=== PATIENT | male | born 1955 | race Caucasian/White ===

== ENCOUNTER 2020-03-18 19:23 | Emergency (ER) | payer MEDICARE, SELFPAY ==
[2020-03-18 19:36] VITALS: BP 187/89; PULSE 84; RESP 18; TEMP 36.2; O2SAT 98
--- NOTE | 2020-03-18 20:47 | ED.ABDPAIN ---
HPI - Abdominal Pain General Chief Complaint: Urogenital-Male Stated Complaint: urinary catheter not draining Time Seen by Provider: 03/18/20 20:39 History of Present Illness HPI narrative: Patient presents to the ER with pain in his penis from the catheter. He had prostate surgery 2 days ago, with Dr. Roldan. He did not feel like his bladder was unable to empty, just having severe pain in the penis, which is greatly relieved by the time I saw him. The urine in the Park bag and tubing is bloody, not clotted, but blood-tinged. He denies fever chills and sweats. He says he feels hot. He is currently diaphoretic. He said he took his diabetic medicine, before he came in. He had the procedure done in [place], at [facility]. MD elicited complaint: abdominal pain Pertinent past history: other (Prostatic surgery 2 days ago) Onset (ago): hour(s) Pain Consistency: constant Location: other (Penile) Severity: severe Related Data Home Medications Medication Instructions Recorded Confirmed aspirin 81 mg tablet,delayed 81 mg PO DAILY 12/01/19 release finasteride 5 mg tablet 5 mg PO DAILY 12/01/19 insulin human U-100 NPH-regulr See Rx Instructions SUB-Q QAM 12/01/19 70-30 mix 100 unit/mL subcutaneous susp lycopene 10 mg capsule 10 mg PO DAILY 12/01/19 saw palmetto 160 mg capsule 320 mg PO DAILY cap 12/01/19 Allergies Allergy/AdvReac Type Severity Reaction Status Date / Time codeine Allergy Unknown felt wierd Verified 03/03/20 10:01 lisinopril Allergy Unknown cough Verified 03/03/20 10:01 peanut Allergy Unknown Swelling Verified 03/03/20 10:01 of Lip/Tongue/Throat Sulfa (Sulfonamide Allergy Unknown Skin Verified 03/03/20 10:01 Antibiotics) Reaction Review of Systems Review of Systems: Narrative: CONSTITUTIONAL: Denies fever, chills, or sweats. Feels hot. EYES: Denies visual changes, redness, or discharge. ENT: Denies rhinorrhea, congestion, sore throat, or otalgia. CARDIOVASCULAR: Denies chest pain, palpitations, or edema. RESPIRATORY: Denies cough or dyspnea. GASTROINTESTINAL: Denies abdominal pain, nausea, vomiting, or diarrhea. GENITOURINARY: He has had a Park catheter, and had pain in his penis, and bloody urine. SKIN: Denies rash or itching. MUSCULOSKELETAL: Denies back pain, joint pain, or myalgia. NEUROLOGIC: Denies headache, numbness, or weakness. PSYCHIATRIC: Denies anxiety or depression. [facility] Family History Family History Sibling Diabetes mellitus Hypertension Family history of elevated blood lipids Father Family history of glaucoma, Onset Age: 90 Family history of elevated blood lipids, Onset Age: 90 Family history of cardiovascular disease, Onset Age: 90 Diabetes mellitus Hypertension Family history of dementia Mother Family history of malignant neoplasm of stomach, Onset Age: 78 Family history of dementia Social History Social History Smoking status: Never smoker Alcohol intake: never Exam Narrative: Exam Narrative: GENERAL: Well-appearing, well-nourished, and in no acute distress. He is diaphoretic about the forehead and neck. His Park catheter is in place and has blood-tinged urine. HEAD: Normocephalic, atraumatic. EYES: PERRLA and EOMI. ENT: Nares clear, no rhinorrhea or epistaxis. Mucous membranes moist. NECK: Supple. CHEST: Clear to auscultation. No respiratory distress. HEART: Regular rate and rhythm. No murmur heard. Normal peripheral pulses. ABDOMEN: Soft, nontender, nondistended, normal active bowel sounds. EXTREMITIES: Normal range of motion. No edema. SKIN: Warm, dry, no rash. NEURO: No focal deficits. Alert and oriented x3. PSYCH: Normal mood and affect. Const: General: no acute distress and alert Orientation/consciousness: patient oriented x3 Course Consultations Consultation #1: Call Dr. Roberts for advice. Dr. Liu
--- NOTE | 2020-03-18 20:52 | PC.NURSE ---
Bladder scan done at this time. 48ml in bladder at this time. ERP aware.
[2020-03-18 21:07] LABS: Basophils Percent Auto 0.3 % (0.2-1.2); Eosinophils Absolute Auto 0.1 K/mm3 (0-0.3); Eosinophils Percent Auto 1.3 % (0-4.4); Hematocrit 46.4 % (42.0-52.0); Hemoglobin 16.1 g/dL (14.0-18.0); Immature Granulocyte Absolute 0.02 K/mm3 (0.00-0.031); Immature Granulocyte Percent A 0.2 % (0-0.5); Lymphocytes Absolute Auto 1.07 K/mm3 (0.9-3.2); Lymphocytes Percent Auto 11.2 % (18.3-44.2); Mean Corpuscular HGB Conc 34.7 g/dl (32-36); Mean Corpuscular Hemoglobin 32.7 pg (26-34); Mean Corpuscular Volume 94.1 fl (80-100); Mean Platelet Volume 10.3 fl (7.4-10.4); Monocytes Absolute Auto 0.7 K/mm3 (0.1-0.6); Monocytes Percent Auto 7.6 % (2.6-8.5); Neutrophils Absolute Auto 7.6 K/mm3 (1.3-6.7); Neutrophils Percent Auto 79.4 % (45.5-73.1); Platelet Count Result 141 k/mm3 (150-375); Red Blood Count 4.93 M/mm3 (4.6-6.20); Red Cell Distribution Width 12.5 % (11.5-14.5); White Blood Count 9.6 K/mm3 (4.5-10.0)
[2020-03-18 21:20] LABS: Alanine Aminotransferase 22 U/L (4-50); Albumin Level 3.4 g/dL (3.5-5.1); Alkaline Phosphatase 123 U/L (38-126); Aspartate Amino Transferase 27 U/L (17-59); Bilirubin,Total 0.4 mg/dL (0.2-1.3); Blood Urea Nitrogen 19 mg/dL (9-20); Calcium 8.4 mg/dL (8.4-10.2); Carbon Dioxide 28 mmol/L (22-30); Chloride 100 mmol/L (98-107); Estimated CRCL calculation 63 ml/min; Estimated Glomerular Filt Rate > 60; Glucose 258 mg/dL (75-110); Potassium 4.2 mmol/L (3.4-5.0); Sodium 132 mmol/L (137-145)
[2020-03-18] MEDS: PHENAZOPYRIDINE HCL 100 MG TABLET PO (21:48)
[2020-03-18 22:00] LABS: Glucose Point of Care 232 (65-105)
[2020-03-18 22:13] VITALS: BP 155/70; PULSE 84; RESP 18; O2SAT 98
== END 2020-03-18 22:14 | disposition home or self-care (01) ==
PROVIDERS: Emergency Provider Emergency Medicine; PCP Family Medicine
DX: N32.89 Other specified disorders of bladder (principal); R31.9 Hematuria, unspecified; E11.9 Type 2 diabetes mellitus without complications; Z79.82 Long term (current) use of aspirin; Z79.4 Long term (current) use of insulin
CPT/HCPCS: 36415; 80053; 82948; 85025; 99283; A9270

== ENCOUNTER 2021-12-11 11:48 | Outpatient (CLI) | payer MEDICARE, SELFPAY ==
--- NOTE | ~2021-12-11 | XR_ITS ---
XR shoulder RT min 2V 12/11/2021 12:22 Indication: Right shoulder pain Procedure: 4 views right shoulder Comparison: No prior studies for comparison. Findings: No fracture, subluxation or dislocation. There is mild glenohumeral joint osteoarthritis. T here are median sternotomy wires. There is evidence for chronic granulomatous disease in the lungs. Impression: 1: Mild glenohumeral joint osteoarthritis. Reviewed, dictated and finalized at location A. DRIVER Impression: 1: Mild glenohumeral joint osteoarthritis.
== END 2021-12-11 11:49 ==
PROVIDERS: PCP Family Medicine; Visit Provider Family Medicine
DX: M19.011 Primary osteoarthritis, right shoulder (principal)
CPT/HCPCS: 73030

== ENCOUNTER → 2022-04-17 13:52 | Outpatient (CLI) | payer MEDICARE, SELFPAY ==
--- NOTE | ~2022-04-17 | CT_ITS ---
EXAMINATION: CT soft tissue neck w con DATE: 04/17/2022 14:20 INDICATION: Mass at the base of the and right sternocleidomastoid. TECHNIQUE: Computed tomography (CT) of the neck was performed with 75 mL Omnipaque-300 intravenous co ntrast. Automated exposure control and iterative reconstruction technique were employed. The dose-janneth gth product was 431.14 mGy-cm. COMPARISON: None FINDINGS: There is a predominantly cystic 4.0 x 3.6 x 3.0 cm mass with peripheral enhancing nodular soft tissue component at the mid to inferior right thyroid. There is a smaller predominantly solid 1.2 cm nodule with small peripheral calcification at the superior right thyroid. Submandibular and parotid glands are symmetric. There are scattered normal-sized lymph nodes in the neck, no pathologically enlarged lymphadenopathy. The cervical vasculature is unremarkable. Changes of bilateral intraocular lens rep lacement. Orbits are otherwise normal. Mild mucosal thickening at the right maxillary sinus. Mastoid air cells and middle ear cavities are clear. Small calcified right upper lobe nodule consistent with old granulomatous disease. There are a few normal-sized lymph nodes in the visualized superior medias tinum. Moderate cervical spondylosis. Median sternotomy wires. IMPRESSION: 1. A couple right thyroid nodules including a 4.0 x 3.6 x 2.0 cm predominantly cystic right thyroid m ass and 1.2 cm solid nodule with calcifications. Recommend thyroid ultrasound for risk stratification . Reviewed, dictated and finalized at location A. IMPRESSION: 1. A couple right thyroid nodules including a 4.0 x 3.6 x 2.0 cm predominantly cystic right thyroid mass and 1.2 cm solid nodule with calcifications. Recommen d thyroid ultrasound for risk stratification.
[2022-04-17 14:10] LABS: Estimated Glomerular Filt Rate > 60
== END ==
PROVIDERS: PCP Family Medicine; Visit Provider Family Medicine
DX: R22.1 Localized swelling, mass and lump, neck (principal)
CPT/HCPCS: 70491; Q9967

== ENCOUNTER → 2022-04-27 07:52 | Outpatient (CLI) | payer MEDICARE, SELFPAY ==
--- NOTE | ~2022-04-27 | US_ITS ---
EXAMINATION: US thyroid DATE: 04/27/2022 08:20 INDICATION: Disorder of thyroid, unspecified. TECHNIQUE: Multiple ultrasound images of the thyroid were obtained. COMPARISON: Neck CT 04/17/2022 FINDINGS: The right thyroid lobe measures 7.2 x 3.9 x 4.1 cm. The left thyroid lobe measures 5.8 x 2.2 x 1.4 c m. The thyroid demonstrates diffusely heterogeneous echogenicity. In the left thyroid lobe, there is a 10 mm solid, hypoechoic, wider than tall nodule with ill-defined margin and punctate echogenic foc i (TI-RADS TR5). In the left thyroid lobe, there is a 1.3 cm solid, hypoechoic, wider than tall nodul e with ill-defined margin without echogenic foci (TR4). In the left thyroid lobe, there is a 12 mm so lid, hypoechoic, wider than tall nodule with ill-defined margin without echogenic foci (TR4). In the right thyroid lobe, there is a 4.6 cm mixed cystic and solid, hypoechoic, wider than tall nodule with smooth margin without echogenic foci (TR3). In the right thyroid lobe, there is a 10 mm solid, hypoe choic, wider than tall nodule with ill-defined margin without echogenic foci (TR4). IMPRESSION: 1. Multinodular goiter. Ultrasound-guided fine-needle aspiration of 2 nodules is recommended. Reviewed, dictated and finalized at location A. IMPRESSION: 1. Multinodular goiter. Ultrasound-guided fine-needle aspiration of 2 nodules i s recommended.
== END ==
PROVIDERS: PCP Family Medicine; Visit Provider Family Medicine
DX: E04.2 Nontoxic multinodular goiter (principal)
CPT/HCPCS: 76536

== ENCOUNTER 2022-05-24 08:28 | Outpatient (CLI) | payer MEDICARE, SELFPAY ==
--- NOTE | ~2022-05-24 | US_ITS ---
EXAMINATION: US FNA w image guidance, US FNA additional DATE: 05/24/2022 10:02 INDICATION: Nontoxic multinodular goiter. TECHNIQUE: The procedure and its benefits and risks were discussed with the patient. Risks specifically discusse d included bleeding. The patient verbalized understanding of the risks and agreed to proceed. The nec k was prepped and draped in the usual sterile manner. 1% lidocaine was used for local anesthesia. 6 passes were made with a 25G needle into the lesion in right thyroid lobe under ultrasound guidance. 6 passes were made with a 25-gauge needle into the lesion in left thyroid lobe under ultrasound criss nce. There were no immediate complications. FINDINGS: Grayscale ultrasound images demonstrate needles advanced into a 4.6 cm nodule in right thyroid lobe f or biopsy. Ultrasound images demonstrate needles advanced into a 10 mm nodule in left thyroid lobe. IMPRESSION: 1. Ultrasound-guided fine needle aspiration of a right thyroid nodule. 2. Ultrasound-guided fine-needle aspiration of a left thyroid nodule. Reviewed, dictated and finalized at location A. IMPRESSION: 1. Ultrasound-guided fine needle aspiration of a right thyroid nodule. 2. Ultrasound-guided fine-needle aspiration of a left thyroid nodule.
== END 2022-05-24 08:29 | disposition home or self-care (01) ==
PROVIDERS: PCP Family Medicine; Visit Provider Physician Assistant
DX: E04.2 Nontoxic multinodular goiter (principal)
CPT/HCPCS: 10005; 10006; 88173; 88305

== ENCOUNTER 2022-12-12 10:42 | Outpatient (CLI) | payer MEDICARE, SELFPAY ==
--- NOTE | ~2022-12-12 | XR_ITS ---
Left Shoulder Technique: AP and scapular Y views were obtained. Clinical History: Pain Findings: No fracture or dislocation is seen. Osseous alignment is anatomic. There is minimal degener ative change at the glenohumeral and acromioclavicular joints. Soft tissues are unremarkable. Impression: Minimal degenerative changes, as above. No fracture or dislocation. Reviewed, dictated and finalized at location . ANGER Impression: Minimal degenerative changes, as above. No fracture or dislocation.
--- NOTE | ~2022-12-12 | XR_ITS ---
XR_[id number]_CR 12/12/2022 11:13 Indication: Posterior neck pain Procedure: 4 view cervical spine Comparison: No prior studies for comparison. Findings: There is straightening of cervical lordosis. There are prominent ventral osteophytes at all cervical levels. There is degenerative disc disease with narrowing at C4-5, C5-6 and C6-7. There is mild multilevel uncinate and facet hypertrophy. Lung apices are normal. Impression: 1: Moderate cervical spondylosis. Reviewed, dictated and finalized at location B. UCTION ASSEMBLY OPERATOR Impression: 1: Moderate cervical spondylosis.
== END 2022-12-12 10:43 | disposition home or self-care (01) ==
PROVIDERS: PCP Emergency Medicine; Visit Provider Emergency Medicine
DX: S49.90XA Unspecified injury of shoulder and upper arm, unspecified arm, initial encounter (principal); X58.XXXA Exposure to other specified factors, initial encounter; M47.892 Other spondylosis, cervical region
CPT/HCPCS: 72040; 73030

== ENCOUNTER 2023-04-20 09:51 | Emergency (ER) | payer MEDICARE, SELFPAY ==
[2023-04-20 10:10] VITALS: BP 166/78; PULSE 68; RESP 16; TEMP 36.3; O2SAT 100
--- NOTE | 2023-04-20 10:45 | ED.GENADULT ---
HPI - General Adult General Chief complaint: Urogenital-Male Stated complaint: urinating blood Source: patient and RN notes reviewed History of Present Illness HPI narrative: 68-year-old male presents to the [facility] today complaining of a possible UTI. Patient noticed last night that he started developing bloody urine. Patient states also that he has had increased urinary frequency and states that he does not feel like he is able to empty his bladder fully. Patient does state having some burning with urination as well. Patient denies any abdominal pain, fever, chills. Patient states he has had a history of this in the past and believes he just was treated with antibiotics. Patient is a diabetic and has a history of open-heart surgery. Related Data Home Medications Medication Instructions Recorded Confirmed aspirin 81 mg tablet,delayed 81 mg PO DAILY 12/01/19 04/20/23 release desmopressin 55.3 mcg 55.3 mcg sublingual QHS 06/12/21 04/20/23 disintegrating tablet,sublingual (men) (Nocdurna (men)) insulin NPH-reg human insulin 100 45 unit subcut HS 04/20/23 04/20/23 unit/mL (70-30) subcutaneous syringe insulin NPH-regular human 100 40 unit subcut DIRECTED 04/20/23 04/20/23 unit/mL (70-30) subcutaneous cartridge simvastatin 40 mg tablet 40 mg PO DAILY 04/20/23 04/20/23 Allergies Allergy/AdvReac Type Severity Reaction Status Date / Time codeine Allergy Unknown felt wierd Verified 04/20/23 10:21 lisinopril Allergy Unknown cough Verified 04/20/23 10:21 peanut Allergy Unknown Swelling Verified 04/20/23 10:21 of Lip/Tongue/Throat Sulfa (Sulfonamide Allergy Unknown Skin Verified 04/20/23 10:21 Antibiotics) Reaction Review of Systems Review of Systems: CONSTITUTIONAL: Denies fever, chills, or sweats. EYES: Denies visual changes, redness, or discharge. ENT: Denies otalgia and sore throat CARDIOVASCULAR: Denies chest pain, palpitations, or edema. RESPIRATORY: Denies cough or dyspnea. GASTROINTESTINAL: Denies abdominal pain, nausea, vomiting, or diarrhea. GENITOURINARY: Positive for dysuria and hematuria. SKIN: Denies rash or itching. MUSCULOSKELETAL: Denies back pain, joint pain, or myalgia. NEUROLOGIC: Denies headache, numbness, or weakness. Pertinent positives per HPI. [facility] Past Medical History Medical History (Updated 04/20/23 @ 10:47 by Lydia Banuelos APRN) CAD (coronary artery disease) Diabetic retinopathy associated with controlled type 2 diabetes mellitus Essential (primary) hypertension Mixed hyperlipidemia Multinodular goiter Prostatic hypertrophy Type 2 diabetes mellitus with diabetic neuropathy, unspecified Surgical History Surgical History (Updated 02/20/23 @ 10:21 by Jazmine Carr MD) History of prostate surgery Family History Family History Sibling Diabetes mellitus Hypertension Family history of elevated blood lipids Father Family history of glaucoma, Onset Age: 90 Family history of elevated blood lipids, Onset Age: 90 Family history of cardiovascular disease, Onset Age: 90 Diabetes mellitus Hypertension Family history of dementia Mother Family history of malignant neoplasm of stomach, Onset Age: 78 Family history of dementia Social History Social History (Updated 02/20/23 @ 10:19 by Masha Pichardo MA) Smoking status: Never smoker Alcohol intake: never Lack of Transportation: No Lack of Food: Never True Current Housing: I Have Housing Concerned About Future Housing: Decline to Answer Difficulty Paying Gas/Electric Bills: Decline to Answer Difficulty Paying for Meds: Decline to Answer Currently Unemployed: Decline to Answer Education: Decline to Answer Difficulty w/ Childcare or Family Care: Decline to Answer Gender identity (if verbalized by the patient): Male Comments At the time of my signature, I reviewed and agree with the nu
== END 2023-04-20 11:14 | disposition home or self-care (01) ==
PROVIDERS: Emergency Provider Nurse Practitioner Family; PCP Emergency Medicine
DX: N39.0 Urinary tract infection, site not specified (principal); I25.10 Atherosclerotic heart disease of native coronary artery without angina pectoris; E11.319 Type 2 diabetes mellitus with unspecified diabetic retinopathy without macular edema; E11.42 Type 2 diabetes mellitus with diabetic polyneuropathy; Z79.4 Long term (current) use of insulin; I10 Essential (primary) hypertension; E78.2 Mixed hyperlipidemia; E04.2 Nontoxic multinodular goiter; N40.0 Benign prostatic hyperplasia without lower urinary tract symptoms
CPT/HCPCS: 81003; 87077; 87086; 87186; 99213; G0463

== ENCOUNTER 2023-12-27 21:29 | Emergency (ER) | payer MEDICARE, SELFPAY ==
--- NOTE | ~2023-12-27 | CT_ITS ---
EXAMINATION: CT brain wo con DATE: 12/28/2023 00:38 INDICATION: Head injury with laceration to the chin TECHNIQUE: Computed tomography (CT) of the head was performed without intravenous contrast. Sagittal and coronal reconstructions were performed. The mA was adjusted according to patient size. Iterative reconstruction technique was employed. The dose-length product was 756.00 mGy-cm. COMPARISON: Brain MR dated 11/22/2014 FINDINGS: No fracture of the visualized bones. No acute intracranial hemorrhage, acute infarction or abnormal e xtra axial fluid collection. There is mild scattered white matter hypoattenuation consistent with chr onic small vessel ischemic disease. Ventricles are normal and symmetric. No mass/mass effect. Change s of bilateral intraocular lens replacement. The orbits and mastoid air cells are normal. Nodular muc osal thickening in the right maxillary sinus. Large periapical lucency associated with the posterior most remaining right maxillary molar. IMPRESSION: 1. Mild scattered white matter hypoattenuation consistent with chronic small vessel ischemic disease. No fracture or acute intracranial process. 2. Large periapical lucency at the posterior most right maxillary molar. Consider dental referral. Reviewed, dictated and finalized at location A. IMPRESSION: 1. Mild scattered white matter hypoattenuation consistent with chronic small ve ssel ischemic disease. No fracture or acute intracranial process. 2. Large periapical lucency at the posterior most right maxillary molar. Consid er dental referral.
--- NOTE | ~2023-12-27 | XR_ITS ---
EXAMINATION: XR hand LT min 3V DATE: 12/28/2023 00:44 INDICATION: Left hand laceration. Assess for foreign body. TECHNIQUE: Posteroanterior, oblique and lateral views of the left hand were obtained. COMPARISON: None. FINDINGS: Bone alignment is normal. No fracture. Joint spaces appear relatively preserved. Tiny heterotopic oss icle near the tip of the radial styloid process. Bandaging material about the ulnar side of the hand. No radiopaque foreign bodies. IMPRESSION: 1. No acute osseous abnormality or radiopaque foreign bodies. Reviewed, dictated and finalized at location A.
[2023-12-27 21:43] VITALS: BP 174/81; PULSE 74; RESP 15; TEMP 36.4; O2SAT 100
--- NOTE | 2023-12-27 23:08 | PC.NURSE ---
Report received from JANET Brunson. Assumed care of patient at this time.
--- NOTE | 2023-12-28 00:02 | PC.NURSE ---
Bedside glucose is 181, ERP notified.
[2023-12-28 00:04] LABS: Glucose Point of Care 181 mg/dl (65-105)
--- NOTE | 2023-12-28 00:11 | ED.FALL ---
HPI - Fall General Chief Complaint: Fall Stated Complaint: fall, L hand lac Time Seen by Provider: 12/27/23 23:34 Source: patient Mode of arrival: ambulatory Limitations: no limitations History of Present Illness HPI Narrative: Patient is a 68 y/o male who presents to the ED with c/o lacerations to his left hand and chin. Patient reports [place] when he tripped and fell. He hit his head on the ground and sustained a laceration to his chin. Denied LOC. He also sustained a laceration to his left hand. Denies any other injuries. Denies neck or back pain. Denies numbness/tingling, difficulty moving hand/fingers. Denies dizziness, lightheadedness, vision changes, nausea, vomiting, SEGURA. Tetanus UTD as of 2 years ago. Related Data Home Medications Medication Instructions Recorded Confirmed desmopressin 55.3 mcg 55.3 mcg sublingual QHS 06/12/21 12/26/23 disintegrating tablet,sublingual (men) (Nocdurna (men)) aspirin 81 mg tablet,delayed 81 mg PO .QOD 09/26/23 12/26/23 release Allergies Allergy/AdvReac Type Severity Reaction Status Date / Time codeine Allergy Unknown felt wierd Verified 12/27/23 23:20 lisinopril Allergy Unknown cough Verified 12/27/23 23:20 peanut Allergy Unknown Swelling Verified 12/27/23 23:20 of Lip/Tongue/Throat Sulfa (Sulfonamide Allergy Unknown Skin Verified 12/27/23 23:20 Antibiotics) Reaction Review of Systems Review of Systems: CONSTITUTIONAL: Denies fever, chills, or sweats. ENT: Denies vision changes GASTROINTESTINAL: Denies abdominal pain, nausea, vomiting. SKIN: See HPI MUSCULOSKELETAL: Denies back pain, neck pain NEUROLOGIC: See HPI All systems reviewed & are unremarkable except as noted in HPI and below PMFSH Past Medical History Medical History CAD (coronary artery disease) Diabetic retinopathy associated with controlled type 2 diabetes mellitus Essential (primary) hypertension Mixed hyperlipidemia Multinodular goiter Prostatic hypertrophy Type 2 diabetes mellitus with diabetic neuropathy, unspecified Surgical History Surgical History History of prostate surgery Family History Family History Sibling Diabetes mellitus Hypertension Family history of elevated blood lipids Father Family history of glaucoma, Onset Age: 90 Family history of elevated blood lipids, Onset Age: 90 Family history of cardiovascular disease, Onset Age: 90 Diabetes mellitus Hypertension Family history of dementia Mother Family history of malignant neoplasm of stomach, Onset Age: 78 Family history of dementia Social History Social History Smoking status: Never smoker Alcohol intake: never Lack of Transportation: No Lack of Food: Never True Current Housing: I Have Housing Concerned About Future Housing: Decline to Answer Difficulty Paying Gas/Electric Bills: Decline to Answer Difficulty Paying for Meds: Decline to Answer Currently Unemployed: Decline to Answer Education: Decline to Answer Difficulty w/ Childcare or Family Care: Decline to Answer Gender identity (if verbalized by the patient): Male Exam Narrative: GENERAL: Well appearing, well-nourished, non-toxic, in no acute distress. HEAD: Normocephalic, atraumatic. 1.5cm linear laceration to inferior chin, no active bleeding. EYES: PERRL/EOMI, conjunctiva clear. RESPIRATORY: Airway patent, respirations nonlabored. CARDIOVASCULAR: Regular rate and rhythm. Radial pulses easily palpable. MUSCULOSKELETAL: Moves all extremities. No gross deformities. Approx 5cm curvilinear laceration to L lateral edge of hand, just inferior and lateral to 5th MCP joint. Subcutaneous adipose tissue exposed, no exposed
[2023-12-28 01:29] VITALS: BP 158/77; PULSE 66; RESP 17; TEMP 36.7; O2SAT 99
== END 2023-12-28 02:37 | disposition home or self-care (01) ==
PROVIDERS: Emergency Provider Physician Assistant; PCP Emergency Medicine
DX: S01.81XA Laceration without foreign body of other part of head, initial encounter (principal); S61.412A Laceration without foreign body of left hand, initial encounter; I25.10 Atherosclerotic heart disease of native coronary artery without angina pectoris; I10 Essential (primary) hypertension; E11.319 Type 2 diabetes mellitus with unspecified diabetic retinopathy without macular edema; E11.40 Type 2 diabetes mellitus with diabetic neuropathy, unspecified; E78.2 Mixed hyperlipidemia; N40.0 Benign prostatic hyperplasia without lower urinary tract symptoms; Z79.4 Long term (current) use of insulin; Z79.84 Long term (current) use of oral hypoglycemic drugs; Z79.82 Long term (current) use of aspirin; W01.0XXA Fall on same level from slipping, tripping and stumbling without subsequent striking against object, initial encounter
CPT/HCPCS: 12002; 12011; 70450; 73130; 82948; 99284

== ENCOUNTER 2024-02-28 15:17 | Outpatient (CLI) | payer MEDICARE, SELFPAY ==
[2024-02-28 19:19] LABS: Albumin Level 3.6 g/dL (3.5-5.1); Anion Gap 3 mmol/L (4-12); Blood Urea Nitrogen 24 mg/dL (9-20); Calcium 8.5 mg/dL (8.4-10.2); Carbon Dioxide 30 mmol/L (22-30); Chloride 99 mmol/L (98-107); Estimated Glomerular Filt Rate > 60; Glucose 316 mg/dL (65-110); Phosphorus 3.7 mg/dL (2.5-4.5); Potassium 4.2 mmol/L (3.4-5.0); Sodium 132 mmol/L (137-145)
[2024-02-28 19:33] LABS: Creatinine Urine 52.4 mg/dL
[2024-02-28 20:04] LABS: Total Protein Urine Random 304 mg/dL
== END 2024-02-28 15:18 | disposition home or self-care (01) ==
LOC: ANHGOSHLAB 15:20
PROVIDERS: PCP Emergency Medicine; Visit Provider Internal Medicine Nephrology
DX: E11.29 Type 2 diabetes mellitus with other diabetic kidney complication (principal); R80.9 Proteinuria, unspecified
CPT/HCPCS: 36415; 80069; 82570; 84156

== ENCOUNTER 2024-06-29 17:57 | Emergency (ER) | payer MEDICARE, SELFPAY ==
--- NOTE | ~2024-06-29 | XR_ITS ---
Clinical Indication: Dizziness AP and lateral views of the chest: Comparison: 05/16/2015 Findings: Stable calcified right upper lobe granuloma. Stable calcified right hilar lymph nodes. The lungs are otherwise clear, without evidence of focal consolidation or pleural effusion. Cardiomedias tinal silhouette is stable. Bones and soft tissues are unremarkable. Impression: Clear lungs. Evidence of prior granulomatous disease. Reviewed, dictated and finalized at location . Impression: Clear lungs. Evidence of prior granulomatous disease.
--- NOTE | ~2024-06-29 | CT_ITS ---
Non-contrast Head CT History: Weakness COMPARISON: 12/28/2023 Technique: Axial non-contrast imaging of the brain was performed. Dose reduction technique was used on this scan by utilizing automated exposure control and iterative reconstruction technique. The dose -length product (DLP) was 681.00 mGy-cm. Findings: There is no evidence of intracranial hemorrhage, mass lesion, or acute infarct. Brain par enchyma appears normal. The ventricles and subarachnoid spaces are normal in size. The calvarium ap pears normal. The visualized paranasal sinuses and mastoid air cells are clear. Impression: No significant abnormality seen. Reviewed, dictated and finalized at location . Impression: No significant abnormality seen.
[2024-06-29 18:10] VITALS: BP 198/77; PULSE 81; RESP 18; TEMP 36.4; O2SAT 100
[2024-06-29 18:49] LABS: Glucose Point of Care 315 mg/dl (65-105)
[2024-06-29 23:02] LABS: Glucose Point of Care 146 mg/dl (65-105)
[2024-06-29 23:03] VITALS: BP 158/94; PULSE 51; RESP 18; O2SAT 97
[2024-06-30 00:05] VITALS: PULSE 65
--- NOTE | 2024-06-30 00:08 | ED.DIZZY ---
HPI - Dizziness General Chief Complaint: Dizziness Stated Complaint: dizziness, leg weakness Time Seen by Provider: 06/29/24 23:59 Source: patient Mode of arrival: wheelchair Limitations: no limitations History of Present Illness HPI Narrative: This is a 69-year-old male that presents to the emergency department for generalized weakness. Reports dizziness. He cannot describe this any further. Reports chills. No other localizing symptoms. Denies fevers, chest pain, shortness of breath, abdominal pain, vomiting, cough. Related Data Home Medications Medication Instructions Recorded Confirmed aspirin 81 mg tablet,delayed 81 mg PO .QOD 09/26/23 05/06/24 release desmopressin 0.2 mg tablet mg PO 04/21/24 05/06/24 latanoprost 0.005 % eye drops drp EACH EYE 04/21/24 05/06/24 timolol maleate 0.5 % eye drops drp EACH EYE 04/21/24 05/06/24 insulin glargine 100 unit/mL 50 unit subcut DAILY 05/06/24 05/06/24 subcutaneous solution (Lantus U-100 Insulin) Allergies Allergy/AdvReac Type Severity Reaction Status Date / Time codeine Allergy Unknown felt wierd Verified 06/29/24 17:59 lisinopril Allergy Unknown cough Verified 06/29/24 17:59 peanut Allergy Unknown Swelling Verified 06/29/24 17:59 of Lip/Tongue/Throat Sulfa (Sulfonamide Allergy Unknown Skin Verified 06/29/24 17:59 Antibiotics) Reaction Review of Systems Review of Systems: CONSTITUTIONAL: Denies fever CARDIOVASCULAR: Denies chest pain RESPIRATORY: Denies cough or dyspnea. GASTROINTESTINAL: Denies abdominal pain, nausea, vomiting NEUROLOGIC: Reports generalized weakness. All systems reviewed & are unremarkable except as noted in HPI and below PMFSH Past Medical History Medical History CAD (coronary artery disease) Diabetic retinopathy associated with controlled type 2 diabetes mellitus Essential (primary) hypertension Mixed hyperlipidemia Multinodular goiter Prostatic hypertrophy Type 2 diabetes mellitus with diabetic neuropathy, unspecified Surgical History Surgical History History of prostate surgery Family History Family History Sibling Diabetes mellitus Hypertension Family history of elevated blood lipids Father Family history of glaucoma, Onset Age: 90 Family history of elevated blood lipids, Onset Age: 90 Family history of cardiovascular disease, Onset Age: 90 Diabetes mellitus Hypertension Family history of dementia Mother Family history of malignant neoplasm of stomach, Onset Age: 78 Family history of dementia Social History Social History Smoking status: Never smoker Alcohol intake: never Do You Feel Safe in your Home?: Yes Lack of Transportation: No Lack of Food: Never True Current Housing: I Have Housing Concerned About Future Housing: Decline to Answer Difficulty Paying Gas/Electric Bills: Decline to Answer Difficulty Paying for Meds: Decline to Answer Currently Unemployed: Decline to Answer Education: Decline to Answer Difficulty w/ Childcare or Family Care: Decline to Answer Gender identity (if verbalized by the patient): Male Exam Narrative: GENERAL: Elderly, well-nourished, and in no acute distress. HEAD: Normocephalic, atraumatic. EYES: PERRLA and EOMI. ENT: Nares clear, no rhinorrhea or epistaxis. Mucous membranes moist. Oropharynx without tonsillar hypertrophy exudate or other lesions. Bilateral TMs pearly cisse non-bulging NECK: Supple. No adenopathy or masses. CHEST: Clear to auscultation. No respiratory distress. No wheezes rales or rhonchi HEART: Regular rate and rhythm. No murmur heard. Normal peripheral pulses. ABDOMEN: Soft, nontender, nondistended, normal active bowel sounds. EXTREMITIES: Normal range of motion. No edema. Strength e
--- NOTE | 2024-06-30 00:25 | ECG_ITS ---
Test Date: 2024-06-30 00:25:50 Measurements Intervals [place] Rate: 60 P: 39 [place]: 220 QRS: -4 QRSD: 104 T: 44 QT: 423 QTc: 423 Interpretive Statements SINUS RHYTHM WITH FIRST DEGREE AV BLOCK BASELINE ARTIFACT- I, II, III, AVR, AVL, AVF, V1-V2 BORDERLINE ECG No previous ECG available for comparison Electronically Signed On 06-30-2024 09:22:11 CDT by Dean Castillo D.O.
[2024-06-30 00:28] LABS: Basophils Percent Auto 0.6 % (0.2-1.2); Eosinophils Absolute Auto 0.3 K/mm3 (0-0.3); Eosinophils Percent Auto 3.6 % (0-4.4); Hematocrit 47.6 % (42.0-52.0); Hemoglobin 16.6 g/dL (14.0-18.0); Immature Granulocyte Absolute 0.02 K/mm3 (0.00-0.031); Immature Granulocyte Percent A 0.3 % (0-0.5); Lymphocytes Percent Auto 24.3 % (18.3-44.2); Mean Corpuscular HGB Conc 34.9 g/dl (32-36); Mean Corpuscular Hemoglobin 32.5 pg (26-34); Mean Corpuscular Volume 93.2 fl (80-100); Mean Platelet Volume 9.8 fl (7.4-10.4); Monocytes Absolute Auto 0.6 K/mm3 (0.1-0.6); Monocytes Percent Auto 8.4 % (2.6-8.5); Neutrophils Absolute Auto 4.4 K/mm3 (1.3-6.7); Neutrophils Percent Auto 62.8 % (45.5-73.1); Platelet Count Result 152 k/mm3 (150-375); Red Blood Count 5.11 M/mm3 (4.6-6.20); Red Cell Distribution Width 12.6 % (11.5-14.5)
[2024-06-30 00:38] LABS: INR 0.9
[2024-06-30 00:39] LABS: Alanine Aminotransferase 26 U/L (6-50); Albumin Level 3.9 g/dL (3.5-5.1); Alkaline Phosphatase 121 U/L (38-126); Anion Gap 8 mmol/L (4-12); Aspartate Amino Transferase 32 U/L (17-59); Bilirubin,Total 0.3 mg/dL (0.2-1.3); Blood Urea Nitrogen 20 mg/dL (9-20); Calcium 8.8 mg/dL (8.4-10.2); Carbon Dioxide 28 mmol/L (22-30); Chloride 93 mmol/L (98-107); Estimated CRCL calculation 55 ml/min; Estimated Glomerular Filt Rate > 60; Glucose 104 mg/dL (65-110); Partial Thromboplastin Time 25.9 Seconds (22.3-36.8); Potassium 3.8 mmol/L (3.4-5.0); Sodium 129 mmol/L (137-145)
[2024-06-30] MEDS: SODIUM CHLORIDE 0.9% IV 1,000 ML 999 ML IV CONT (01:11)
[2024-06-30 01:21] LABS: Add Urine Microscopic? YES; Appearance Urine Clear (Clear); Bacteria Urine None Seen /hpf; Bilirubin Urine Negative (Negative); Blood Urine Negative (Negative); Color Urine Yellow (Yellow); Glucose Urine UA 2+ mg/dL (Negative); Ketones Urine Negative (Negative); Leukocyte Esterase Ur Negative LEU/UL (Negative); Nitrate Urine Negative (Negative); Non Pathogenic Casts 0-2; Protein Urine 3+ mg/dL (Negative); RBC Urine 0-2 /hpf (0-2); Specific Grav Ur 1.009 (1.001-1.035); Squamous Epithelial Cell Urine None Seen /hpf (Few); Urobilinogen Urine 0.2 mg/dL (<2.0); WBC Urine 0-5 /hpf (0-3); pH Urine 5.5 (5.0-9.0)
[2024-06-30 01:52] VITALS: BP 141/78; PULSE 62; RESP 23; O2SAT 96
[2024-06-30 03:08] LABS: Influenza A QL RT-PCR Negative (Negative); Influenza B QL RT-PCR Negative (Negative); RSV RNA, RT-PCR Negative (Negative); SARS-CoV-2 RNA PCR Negative (Negative)
== END 2024-06-30 04:45 | disposition home or self-care (01) ==
PROVIDERS: Emergency Provider Physician Assistant; PCP Emergency Medicine
DX: R53.1 Weakness (principal); E87.1 Hypo-osmolality and hyponatremia; Z20.822 Contact with and (suspected) exposure to COVID-19; I25.10 Atherosclerotic heart disease of native coronary artery without angina pectoris; I10 Essential (primary) hypertension; E11.319 Type 2 diabetes mellitus with unspecified diabetic retinopathy without macular edema; E11.40 Type 2 diabetes mellitus with diabetic neuropathy, unspecified; E78.2 Mixed hyperlipidemia; N40.0 Benign prostatic hyperplasia without lower urinary tract symptoms; Z79.4 Long term (current) use of insulin; Z79.82 Long term (current) use of aspirin; I44.0 Atrioventricular block, first degree
CPT/HCPCS: 36415; 70450; 71046; 80053; 81001; 82948; 85025; 85610; 85730; 87637; 93005; 96360; 99284; J7030

== ENCOUNTER 2024-07-20 12:32 | Emergency (ER) | payer MEDICARE, SELFPAY ==
[2024-07-20 12:44] VITALS: BP 181/87; PULSE 66; RESP 20; TEMP 36.6; O2SAT 99
--- NOTE | 2024-07-20 12:50 | ED.DIZZY ---
HPI - Dizziness General Chief Complaint: Dizziness Stated Complaint: Dizziness/Weakness Time Seen by Provider: 07/20/24 12:50 Source: patient Mode of arrival: ambulatory Limitations: no limitations History of Present Illness HPI Narrative: Efrain is a 69-year-old male patient presenting to the clinic today with complaints of dizziness, weakness, and and steady gait. He reports he was seen 2 weeks ago in the ER for similar symptoms and he was diagnosed with hyponatremia. His sodium level was 129 at that time. Was supposed to follow-up with a primary care provider however he cannot be seen until November. He denies any chest pain, shortness of breath, headache, or visual changes at this time. Related Data Home Medications Medication Instructions Recorded Confirmed aspirin 81 mg tablet,delayed 81 mg PO .QOD 09/26/23 07/20/24 release desmopressin 0.2 mg tablet 0.2 mg PO DIRECTED 04/21/24 07/20/24 latanoprost 0.005 % eye drops 1 drp EACH EYE DIRECTED 04/21/24 07/20/24 timolol maleate 0.5 % eye drops 1 drp EACH EYE DIRECTED 04/21/24 07/20/24 insulin glargine 100 unit/mL 50 unit subcut DAILY 05/06/24 07/20/24 subcutaneous solution (Lantus U-100 Insulin) Allergies Allergy/AdvReac Type Severity Reaction Status Date / Time codeine Allergy Unknown felt wierd Verified 07/20/24 12:34 lisinopril Allergy Unknown cough Verified 07/20/24 12:34 peanut Allergy Unknown Swelling Verified 07/20/24 12:34 of Lip/Tongue/Throat Sulfa (Sulfonamide Allergy Unknown Skin Verified 07/20/24 12:34 Antibiotics) Reaction Review of Systems Review of Systems: Pertinent positives per HPI. Patient denies any fever, chills, rash, headache, visual changes, dizziness, cough, runny nose, sore throat, shortness of breath, chest pain, palpitations, nausea, vomiting, diarrhea, constipation, abdominal pain, or any urinary issues. [facility] Past Medical History Medical History CAD (coronary artery disease) Diabetic retinopathy associated with controlled type 2 diabetes mellitus Essential (primary) hypertension Mixed hyperlipidemia Multinodular goiter Prostatic hypertrophy Type 2 diabetes mellitus with diabetic neuropathy, unspecified Surgical History Surgical History History of prostate surgery Family History Family History Sibling Diabetes mellitus Hypertension Family history of elevated blood lipids Father Family history of glaucoma, Onset Age: 90 Family history of elevated blood lipids, Onset Age: 90 Family history of cardiovascular disease, Onset Age: 90 Diabetes mellitus Hypertension Family history of dementia Mother Family history of malignant neoplasm of stomach, Onset Age: 78 Family history of dementia Social History Social History Smoking status: Never smoker Alcohol intake: never Do You Feel Safe in your Home?: Yes Lack of Transportation: No Lack of Food: Never True Current Housing: I Have Housing Concerned About Future Housing: Decline to Answer Difficulty Paying Gas/Electric Bills: Decline to Answer Difficulty Paying for Meds: Decline to Answer Currently Unemployed: Decline to Answer Education: Decline to Answer Difficulty w/ Childcare or Family Care: Decline to Answer Gender identity (if verbalized by the patient): Male Comments At the time of my signature, I reviewed and agree with the nursing past medical, surgical, social, and family history. There is no relevant family history pertinent to the patient complaint. Exam Narrative: General: Well-developed, well nourished, in no apparent distress Head: Normocephalic, atraumatic Eyes: Pupils equally round and reactive to light bilaterally, EOM intact, sclera and conjunctive batsheva
== END 2024-07-20 12:58 | disposition short-term general hospital (02) ==
PROVIDERS: Emergency Provider Nurse Practitioner Family; PCP Family Medicine
DX: R53.1 Weakness (principal); R42 Dizziness and giddiness; R26.81 Unsteadiness on feet; I25.10 Atherosclerotic heart disease of native coronary artery without angina pectoris; E11.319 Type 2 diabetes mellitus with unspecified diabetic retinopathy without macular edema; E11.40 Type 2 diabetes mellitus with diabetic neuropathy, unspecified; Z79.4 Long term (current) use of insulin; I10 Essential (primary) hypertension; E78.2 Mixed hyperlipidemia; Z79.82 Long term (current) use of aspirin
CPT/HCPCS: 99213; G0463

== ENCOUNTER 2024-07-20 13:42 | Emergency (ER) | payer MEDICARE, SELFPAY ==
--- NOTE | ~2024-07-20 | CT_ITS ---
EXAMINATION: CT brain wo con DATE: 07/20/2024 17:17 INDICATION: Dizziness. TECHNIQUE: Computed tomography (CT) of the head was performed without intravenous contrast. The mA wa s adjusted according to patient size. Iterative reconstruction technique was employed. The dose-lengt h product was 605.33 mGy-cm. COMPARISON: Head CT 06/30/2024, brain MRI 11/22/2014 FINDINGS: There are prominent perivascular spaces in the left basal ganglia. There are scattered area s of low attenuation in the cerebral white matter, which is within normal limits for the patient's ag e. There is no intracranial hemorrhage, acute infarction, or abnormal intracranial mass lesion. The v entricles are normal in size. There are likely changes of ocular lens replacement surgeries. There is mild mucosal thickening in the paranasal sinuses. The mastoid air cells are normal. IMPRESSION: 1. Normal aging brain. Reviewed, dictated and finalized at location A. IMPRESSION: 1. Normal aging brain.
--- NOTE | ~2024-07-20 | CT_ITS ---
CTA brain carotid Ordering provider: Rosenda Waldrop PA-C History: . dizziness, balance issues . Comparison: CT CT done the same day. No IV Technique: CT angiogram head and neck was performed following timed intravenous injection of contrast . Thin slice axial images and reformatted coronal images were obtained. Three dimensional reformatted images of the brain were also obtained using a Qovia workstation. Radiation reduction technique ut ilized.The dose-length product was 1070.37 mGy-cm. 100 mL Omnipaque 350 was given IV. FINDINGS: HEAD: --ANTERIOR AND MIDDLE CEREBRAL ARTERIES AND BRANCHES: Normal caliber and contour. --INTERNAL CAROTID ARTERIES: Normal caliber and contour. --BASILAR ARTERY AND BRANCHES: Normal caliber and contour. No atheromatous disease. --POSTERIOR CEREBRAL ARTERIES: Normal caliber and contour --POSTERIOR COMMUNICATING ARTERIES: Not visualized which is probably related to congenital absence or small size. --ANEURYSM: None visualized. --BRAIN: Please refer to report of CT head performed the same day. --BONES AND SUPERFICIAL SOFT TISSUES: Please refer to report of CT head performed the same day. --PARANASAL SINUSES AND MASTOIDS: Please refer to report of CT head done the same day. NECK: --RIGHT CERVICAL CAROTID SYSTEM: Normal caliber and contour. Percent stenosis per NASCET criteria is 0%. No carotid dissection. Otherwise, no significant atheromatous disease or stenosis of the cervica l carotid system. --LEFT CERVICAL CAROTID SYSTEM: Normal caliber and contour. Percent stenosis per NASCET criteria is 0%. No carotid dissection. Otherwise, no significant atheromatous disease or stenosis of the cervical carotid system. --VERTEBRAL ARTERIES: The left vertebral artery originates directly from the aorta. No dominant right vertebral artery. Normal caliber and contour. --VISUALIZED AORTIC ARCH AND BRANCHING VESSELS: Normal caliber and contour. No significant atheromato us disease. --SOFT TISSUES: Large cystic and solid nodule is seen in the right lobe of the thyroid. Ultrasound ev aluation advised. Small nodules are seen in the left lobe. --CERVICAL SPINE: Age appropriate degenerative changes. IMPRESSION: 1. Normal CTA head and neck. Percent stenosis per NASCET criteria is 0%. 2. Large right lobe of the thyroid cystic and solid nodule. Ultrasound evaluation advised. Reviewed, dictated and finalized at location A. IMPRESSION: 1. Normal CTA head and neck. Percent stenosis per NASCET criteria is 0%. 2. Large right lobe of the thyroid cystic and solid nodule. Ultrasound evaluat ion advised.
--- NOTE | 2024-07-20 13:43 | ECG_ITS ---
Test Date: 2024-07-20 13:48:33 Measurements Intervals [place] Rate: 64 P: -13 [place]: 188 QRS: 6 QRSD: 96 T: 43 QT: 411 QTc: 425 Interpretive Statements SINUS RHYTHM MINOR NONSPECIFIC T-WAVE ABNORMALITY BORDERLINE ECG Compared to ECG 06/30/2024 00:25:50 [place] INTERVAL IS SLIGHTLY SHORTER Electronically Signed On 07-20-2024 14:48:27 CDT by Carl Lowe M.D.
[2024-07-20 13:54] VITALS: BP 168/87; PULSE 72; RESP 20; TEMP 36.4; O2SAT 97
--- NOTE | 2024-07-20 16:44 | ED.DIZZY ---
HPI - Dizziness General Chief Complaint: Dizziness <CELIA Spaulding Last Filed: 07/20/24 19:08> Stated Complaint: dizziness <CELIA Spaulding Last Filed: 07/20/24 19:08> Time Seen by Provider: 07/20/24 16:44 <CELIA Spaulding Last Filed: 07/20/24 19:08> Focused HPI: Patient is a 69 y/o male who presents to the ED with c/o dizziness. Reports he was seen in the ED here on 06/30 for dizziness and feeling off balance. He was found to have low sodium at 129. He was given fluids in the ED and felt much better. Patient had a follow-up appointment with his primary care doctor after the ED visit and had his labs rechecked, sodium was 136. He was scheduled for a cardiac stress test to be performed on 07/31. Patient then states he had another episode of dizziness around 945 this morning. Lasted approx 2 hours. States he felt very weak and off balance. He then prompted here for further evaluation. Patient states he feels back to his baseline currently. Denies vision changes, focal weakness, focal numbness, SOB, CP, N/V, palpitations. States he has been eating/drinking as usual. Patient is on Desmopressin for nocturia. GENERAL: Elderly but well-appearing, well-nourished, and in no acute distress. HEAD: Normocephalic, atraumatic. CHEST: Clear to auscultation. ?No respiratory distress. HEART: Regular rate and rhythm.? NEURO: ?Alert and oriented x3. No pronator drift. Strength 5/5 in upper and lower extremities bilaterally. Equal software release engineer strength. Patient screened in triage and initial orders placed.? ?Additional care and disposition to be based upon?diagnostic testing and treatment. <CELIA Spaulding Last Filed: 07/20/24 19:08> Source: patient <CELIA Spaulding Last Filed: 07/20/24 19:08> Mode of arrival: ambulatory <CELIA Spaulding Last Filed: 07/20/24 19:08> Limitations: no limitations <Karmen Easton PA-C - Last Filed: 07/20/24 19:08> Related Data Home Medications: Home Medications Medication Instructions Recorded Confirmed aspirin 81 mg tablet,delayed 81 mg PO .QOD 09/26/23 07/20/24 release desmopressin 0.2 mg tablet 0.2 mg PO DIRECTED 04/21/24 07/20/24 latanoprost 0.005 % eye drops 1 drp EACH EYE DIRECTED 04/21/24 07/20/24 timolol maleate 0.5 % eye drops 1 drp EACH EYE DIRECTED 04/21/24 07/20/24 insulin glargine 100 unit/mL 50 unit subcut DAILY 05/06/24 07/20/24 subcutaneous solution (Lantus U-100 Insulin) <CELIA Spaulding Last Filed: 07/20/24 19:08> Allergies/Adverse Reactions: Allergies Allergy/AdvReac Type Severity Reaction Status Date / Time codeine Allergy Unknown felt wierd Verified 07/20/24 12:34 lisinopril Allergy Unknown cough Verified 07/20/24 12:34 peanut Allergy Unknown Swelling Verified 07/20/24 12:34 of Lip/Tongue/Throat Sulfa (Sulfonamide Allergy Unknown Skin Verified 07/20/24 12:34 Antibiotics) Reaction <Karmen Easton PA-C - Last Filed: 07/20/24 19:08> Review of Systems Review of Systems: CONSTITUTIONAL: Denies fever EYES: Denies visual changes CARDIOVASCULAR: Denies chest pain, or edema. RESPIRATORY: Denies dyspnea. NEUROLOGIC: Denies numbness, or weakness. <Rosenda Waldrop PA-C - Last Filed: 07/20/24 22:02> All systems reviewed & are unremarkable except as noted in HPI and below <Rosenda Waldrop PA-C - Last Filed: 07/20/24 22:02> [facility] Past Medical History Medical History: Medical History CAD (coronary artery disease) Diabetic retinopathy associated with controlled type 2 diabetes mellitus Essential (primary) hypertension Mixed hyperlipidemia Multinodular goiter Prostatic hypertrophy Type 2 diabetes mellitus with diabetic neuropathy, unspecified <Karmen Easton PA-C - Last Filed: 07/20/24 19:08> Surgical History Surgical History:
[2024-07-20 17:01] LABS: Basophils Percent Auto 0.6 % (0.2-1.2); Eosinophils Absolute Auto 0.2 K/mm3 (0-0.3); Eosinophils Percent Auto 4.3 % (0-4.4); Hematocrit 44.2 % (42.0-52.0); Hemoglobin 14.8 g/dL (14.0-18.0); Immature Granulocyte Absolute 0.01 K/mm3 (0.00-0.031); Immature Granulocyte Percent A 0.2 % (0-0.5); Lymphocytes Absolute Auto 1.41 K/mm3 (0.9-3.2); Lymphocytes Percent Auto 26.1 % (18.3-44.2); Mean Corpuscular HGB Conc 33.5 g/dl (32-36); Mean Corpuscular Hemoglobin 32.1 pg (26-34); Mean Corpuscular Volume 95.9 fl (80-100); Mean Platelet Volume 10.2 fl (7.4-10.4); Monocytes Absolute Auto 0.4 K/mm3 (0.1-0.6); Monocytes Percent Auto 6.8 % (2.6-8.5); Neutrophils Absolute Auto 3.4 K/mm3 (1.3-6.7); Platelet Count Result 144 k/mm3 (150-375); Red Blood Count 4.61 M/mm3 (4.6-6.20); Red Cell Distribution Width 12.5 % (11.5-14.5); White Blood Count 5.4 K/mm3 (4.5-10.0)
[2024-07-20 17:10] LABS: INR 0.9; Prothrombin Time 12.1 Seconds (11.1-14.7)
[2024-07-20 17:11] LABS: Partial Thromboplastin Time 26.8 Seconds (22.3-36.8)
[2024-07-20 17:15] LABS: Alanine Aminotransferase 25 U/L (6-50); Albumin Level 3.5 g/dL (3.5-5.1); Alkaline Phosphatase 153 U/L (38-126); Anion Gap 5 mmol/L (4-12); Aspartate Amino Transferase 29 U/L (17-59); Bilirubin,Total 0.4 mg/dL (0.2-1.3); Blood Urea Nitrogen 33 mg/dL (9-20); Calcium 8.8 mg/dL (8.4-10.2); Carbon Dioxide 30 mmol/L (22-30); Chloride 99 mmol/L (98-107); Estimated CRCL calculation 50 ml/min; Estimated Glomerular Filt Rate 60; Glucose 324 mg/dL (65-110); Magnesium 2.2 mg/dL (1.6-2.3); Potassium 4.7 mmol/L (3.4-5.0); Sodium 134 mmol/L (137-145)
[2024-07-20 17:26] LABS: Troponin I < 0.012 ng/mL (0.000-0.034)
[2024-07-20 17:37] LABS: Add Urine Microscopic? YES; Appearance Urine Cloudy (Clear); Bacteria Urine None Seen /hpf; Bilirubin Urine Negative (Negative); Blood Urine Negative (Negative); Color Urine Yellow (Yellow); Glucose Urine UA 2+ mg/dL (Negative); Ketones Urine Negative (Negative); Leukocyte Esterase Ur Negative LEU/UL (Negative); Nitrate Urine Negative (Negative); Non Pathogenic Casts 0-2; Protein Urine 3+ mg/dL (Negative); RBC Urine 0-2 /hpf (0-2); Specific Grav Ur 1.012 (1.001-1.035); Squamous Epithelial Cell Urine None Seen /hpf (Few); Urobilinogen Urine 0.2 mg/dL (<2.0); WBC Urine 0-5 /hpf (0-3)
[2024-07-20 17:45] LABS: Thyroid Stimulating Hormone 0.275 uIU/mL (0.465-4.680)
[2024-07-20] MEDS: SODIUM CHLORIDE 0.9% IV 1,000 ML 999 ML IV CONT (18:24)
[2024-07-20 21:23] LABS: Free T4 Free Thyroxine 0.86 ng/mL (0.78-2.19)
[2024-07-20 22:08] VITALS: BP 164/90; PULSE 73; RESP 16; O2SAT 97
== END 2024-07-20 22:10 | disposition home or self-care (01) ==
PROVIDERS: Physician Assistant; Emergency Provider Physician Assistant; PCP Family Medicine
DX: R42 Dizziness and giddiness (principal); E04.1 Nontoxic single thyroid nodule; I25.10 Atherosclerotic heart disease of native coronary artery without angina pectoris; I10 Essential (primary) hypertension; E11.319 Type 2 diabetes mellitus with unspecified diabetic retinopathy without macular edema; E11.40 Type 2 diabetes mellitus with diabetic neuropathy, unspecified; E78.2 Mixed hyperlipidemia; N40.1 Benign prostatic hyperplasia with lower urinary tract symptoms; R35.1 Nocturia; Z79.899 Other long term (current) drug therapy; Z79.82 Long term (current) use of aspirin; Z79.4 Long term (current) use of insulin; Z79.84 Long term (current) use of oral hypoglycemic drugs
CPT/HCPCS: 36415; 70450; 70496; 70498; 80053; 81001; 83735; 84439; 84443; 84484; 85025; 85610; 85730; 93005; 96360; 99284; J7030; Q9967

== ENCOUNTER 2024-07-27 10:08 | Outpatient (CLI) | payer MEDICARE, SELFPAY ==
--- NOTE | ~2024-07-27 | US_ITS ---
EXAMINATION: US thyroid DATE: 07/27/2024 10:26 INDICATION: Nontoxic single thyroid nodule. TECHNIQUE: Multiple ultrasound images of the thyroid were obtained. COMPARISON: Ultrasound 04/27/2022 FINDINGS: The right thyroid lobe measures 6.2 x 5.4 x 3.6 cm. The left thyroid lobe measures 3.3 x 1.4 x 2.0 c m. In the left thyroid lobe, there is a 1.6 cm predominantly solid, hypoechoic, wider than tall nodu le with smooth margin without echogenic foci (TI-RADS TR4). Biopsy on 05/24/22 was nondiagnostic. The thyroid demonstrates heterogeneous echogenicity. In the right thyroid lobe, there is a 5.1 cm mixed c ystic and solid, hypoechoic, wider than tall nodule with ill-defined margin without echogenic foci (T R3), stable from 04/27/22. Biopsy on 05/24/22 was benign. IMPRESSION: 1. Multinodular goiter. Consider ultrasound-guided fine-needle aspiration of the 1.6 cm left thyroid nodule. Reviewed, dictated and finalized at location A. IMPRESSION: 1. Multinodular goiter. Consider ultrasound-guided fine-needle aspiration of th e 1.6 cm left thyroid nodule.
== END 2024-07-27 10:09 | disposition home or self-care (01) ==
LOC: GOSHIMG 10:08
PROVIDERS: PCP Family Medicine; Visit Provider Nurse Practitioner
DX: E04.2 Nontoxic multinodular goiter (principal)
CPT/HCPCS: 76536

== ENCOUNTER 2024-07-30 09:41 | Outpatient (CLI) | payer MEDICARE, SELFPAY ==
[2024-07-30 19:34] LABS: Add Urine Microscopic? YES; Appearance Urine Clear (Clear); Bacteria Urine None Seen /hpf; Bilirubin Urine Negative (Negative); Blood Urine Negative (Negative); Color Urine Yellow (Yellow); Glucose Urine UA 2+ mg/dL (Negative); Ketones Urine Negative (Negative); Leukocyte Esterase Ur Negative LEU/UL (Negative); Nitrate Urine Negative (Negative); Protein Urine 3+ mg/dL (Negative); RBC Urine 0-2 /hpf (0-2); Specific Grav Ur 1.016 (1.001-1.035); Squamous Epithelial Cell Urine None Seen /hpf (Few); Urobilinogen Urine 0.2 mg/dL (<2.0); WBC Urine 0-5 /hpf (0-3); pH Urine 5.5 (5.0-9.0)
[2024-07-30 19:37] LABS: Hyaline Casts Urine Present /lpf; Need Manual Microscopic Reviewed
== END 2024-07-30 09:42 | disposition home or self-care (01) ==
PROVIDERS: PCP Family Medicine; Visit Provider Nurse Practitioner
DX: R35.1 Nocturia (principal)
CPT/HCPCS: 81001

== ENCOUNTER 2024-08-21 08:49 | Outpatient (CLI) | payer MEDICARE, SELFPAY ==
[2024-08-21 15:00] LABS: Creatinine Urine 55.8 mg/dL; Total Protein Urine Random 136 mg/dL; Ur Ttl Prot Creatinine Ratio 2.44 mg/mg (0-0.20)
[2024-08-21 15:50] LABS: Anion Gap 7 mmol/L (4-12); Blood Urea Nitrogen 45 mg/dL (9-20); Calcium 9.4 mg/dL (8.4-10.2); Carbon Dioxide 32 mmol/L (22-30); Chloride 99 mmol/L (98-107); Estimated Glomerular Filt Rate 40; Glucose 119 mg/dL (65-110); Phosphorus 4.2 mg/dL (2.5-4.5); Potassium 4.3 mmol/L (3.4-5.0); Sodium 138 mmol/L (137-145)
[2024-08-21 16:12] LABS: Prostate Specific Antigen 2.4 ng/mL (< OR = 4.0)
[2024-08-21 16:20] LABS: Prostate Specific Antigen 2.4 ng/mL (< OR = 4.0)
[2024-08-21 16:29] LABS: Hemoglobin A1C 9.9 % (<5.7)
== END 2024-08-21 08:50 | disposition home or self-care (01) ==
PROVIDERS: Internal Medicine Nephrology; PCP Family Medicine; Visit Provider Emergency Medicine
DX: E11.29 Type 2 diabetes mellitus with other diabetic kidney complication (principal); N40.0 Benign prostatic hyperplasia without lower urinary tract symptoms; I10 Essential (primary) hypertension; R80.9 Proteinuria, unspecified; E87.1 Hypo-osmolality and hyponatremia; Z12.5 Encounter for screening for malignant neoplasm of prostate
CPT/HCPCS: 36415; 80069; 82570; 83036; 84153; 84156; 84681; G0103

== ENCOUNTER 2024-09-07 09:55 | Outpatient (CLI) | payer MEDICARE, SELFPAY ==
[2024-09-07 11:43] LABS: Albumin Level 3.9 g/dL (3.5-5.1); Anion Gap 6 mmol/L (4-12); Blood Urea Nitrogen 48 mg/dL (9-20); Calcium 9.1 mg/dL (8.4-10.2); Carbon Dioxide 31 mmol/L (22-30); Chloride 99 mmol/L (98-107); Estimated Glomerular Filt Rate 37; Glucose 143 mg/dL (65-110); Phosphorus 4.4 mg/dL (2.5-4.5); Potassium 5.1 mmol/L (3.4-5.0); Sodium 136 mmol/L (137-145)
== END 2024-09-07 09:56 | disposition home or self-care (01) ==
LOC: ANHGOSHLAB 09:56
PROVIDERS: PCP Family Medicine; Visit Provider Internal Medicine Nephrology
DX: R79.89 Other specified abnormal findings of blood chemistry (principal)
CPT/HCPCS: 36415; 80069

== ENCOUNTER 2024-09-23 11:13 | Outpatient (CLI) | payer MEDICARE, SELFPAY ==
--- NOTE | ~2024-09-23 | US_ITS ---
EXAMINATION: US FNA w image guidance DATE: 09/23/2024 12:28 INDICATION: Nontoxic single left thyroid nodule TECHNIQUE: A time-out was performed to verify the patient's name, date of , and procedure to be performed . The procedure and its benefits and risks were discussed with the patient. Risks specifically discus sed included bleeding and infection. The patient understood the risks and agreed to proceed. The neck was prepped and draped in the usual sterile manner. 3 mL 1% lidocaine was used for local anesthesia . 7 passes were made with a 25G needle into the lesion. Appropriate needle location was documented with continuous sonographic guidance. A sterile bandage was applied. There were no immediate compli cations. FINDINGS: Grayscale ultrasound images demonstrate biopsy needles advanced into the 1.6 cm TI-RADS 4 left thyroi d nodule of concern. IMPRESSION: 1. Successful ultrasound-guided fine needle aspiration of the 1.6 cm TI-RADS 4 left thyroid nodule o f concern. Reviewed, dictated and finalized at location A. SALES REPRESENTATIVE IMPRESSION: 1. Successful ultrasound-guided fine needle aspiration of the 1.6 cm TI-RADS 4 left thyroid nodule of concern.
== END 2024-09-23 11:14 | disposition home or self-care (01) ==
LOC: ANHIMG 11:13
PROVIDERS: PCP Family Medicine; Visit Provider Nurse Practitioner
DX: E04.1 Nontoxic single thyroid nodule (principal)
CPT/HCPCS: 10005; 88172; 88173; 88177; 88305

== ENCOUNTER 2024-09-28 10:38 | Outpatient (CLI) | payer MEDICARE, SELFPAY ==
[2024-09-28 19:43] LABS: Albumin Level 3.9 g/dL (3.5-5.1); Anion Gap 9 mmol/L (4-12); Blood Urea Nitrogen 69 mg/dL (9-20); Calcium 8.4 mg/dL (8.4-10.2); Carbon Dioxide 25 mmol/L (22-30); Chloride 96 mmol/L (98-107); Estimated Glomerular Filt Rate 24; Glucose 197 mg/dL (65-110); Phosphorus 5.2 mg/dL (2.5-4.5); Potassium 4.3 mmol/L (3.4-5.0); Sodium 130 mmol/L (137-145)
== END 2024-09-28 10:39 | disposition home or self-care (01) ==
LOC: ANHGOSHLAB 10:39
PROVIDERS: PCP Family Medicine; Visit Provider Internal Medicine Nephrology
DX: R79.89 Other specified abnormal findings of blood chemistry (principal)
CPT/HCPCS: 36415; 80069

== ENCOUNTER 2024-10-13 09:25 | Outpatient (CLI) | payer MEDICARE, SELFPAY ==
[2024-10-13 12:29] LABS: Albumin Level 3.6 g/dL (3.5-5.1); Anion Gap 4 mmol/L (4-12); Blood Urea Nitrogen 47 mg/dL (9-20); Calcium 8.3 mg/dL (8.4-10.2); Carbon Dioxide 25 mmol/L (22-30); Chloride 109 mmol/L (98-107); Estimated Glomerular Filt Rate 26; Glucose 175 mg/dL (65-110); Phosphorus 5.1 mg/dL (2.5-4.5); Potassium 4.6 mmol/L (3.4-5.0); Sodium 138 mmol/L (137-145)
== END 2024-10-13 09:26 | disposition home or self-care (01) ==
PROVIDERS: PCP Family Medicine; Visit Provider Internal Medicine Nephrology
DX: N17.9 Acute kidney failure, unspecified (principal)
CPT/HCPCS: 36415; 80069

== ENCOUNTER 2024-11-11 09:46 | Outpatient (CLI) | payer MEDICARE, SELFPAY ==
--- NOTE | ~2024-11-11 | US_ITS ---
EXAMINATION: US renal BI DATE: 11/11/2024 10:02 INDICATION: Acute renal insufficiency TECHNIQUE: Multiple ultrasound grayscale images of the kidneys were obtained. COMPARISON: CT abdomen and pelvis dated 12/10/2018 FINDINGS: The right kidney measures 12.7 x 5.3 x 6.5 cm. The left kidney measures 14.0 x 6.8 x 8.4 cm. The kidn eys demonstrate normal echogenicity. There is moderate bilateral hydronephrosis. No stones identifie d. The bladder is distended with calculated bladder volume of 2106 mL. Per notation of the sonographe r the patient reported that his bladder did not feel full. There is mild bilateral distal hydroureter with left-sided ureteral jet visualized in the bladder on color Doppler. IMPRESSION: 1. Distended bladder with moderate bilateral hydroureteronephrosis suggesting bladder outlet obstruc tion versus neurogenic bladder. Reviewed, dictated and finalized at location B. ING SHOW NEWSCAST PRODUCER IMPRESSION: 1. Distended bladder with moderate bilateral hydroureteronephrosis suggesting bladder outlet obstruction versus neurogenic bladder.
== END 2024-11-11 09:47 | disposition home or self-care (01) ==
LOC: GOSHIMG 09:46
PROVIDERS: PCP Family Medicine; Visit Provider Internal Medicine Nephrology
DX: N17.9 Acute kidney failure, unspecified (principal); N13.30 Unspecified hydronephrosis; N32.89 Other specified disorders of bladder
CPT/HCPCS: 76775

== ENCOUNTER 2024-11-11 10:10 | Outpatient (CLI) | payer MEDICARE, SELFPAY ==
--- OUTSIDE RECORDS SUMMARY | 2024-11-11 11:02 | XMS_ITS | Continuity of Care Document ---
Author Organization [facility] Address [address] [place] [address] Dr Os[address] [place] [id number] Phone Care Team Providers Care Splitting Machine Operator Name Role Phone Peter Felix Unavailable Unavailable [...] Copied on Encounter Office/outpat ient Visit, [facility], [address] [place] [address] [address], [place], [place], [id number], tel:[phone] [facility] [place] No Information 0 Krishcaron Peter. [address] [place] [address], [address], [place]. tel:[phone] Referring Provider: Peter silva, [address] [place], [place] [address]ate [place] [address], [place], [place], [facility]. tel:[phone] [facility], [address] [place] [address] [address], [place], [place], [id number], tel:[phone] [facility] [place] No Information 0 Clintonishnasamy Peter. [facility] [address], [place], [address], [place]. tel:[phone] Referring Provider: Peter silva, [address] [place] [address] [address], [place], [place], [facility]. tel:[phone] [facility], [address] [place] [address] [address], [place], [place], [id number], tel:[phone] [facility] [place] No Information 0 Krishnasamy Peter. [address], [facility], [place]. tel:[phone] Office/outpat ient Visit, [facility], [address] [place] [address] [address], [place], [place], [id number], tel:[phone] [facility] [place] No Information Mar-0 2-200 9 Krishnasamy Peter. [address] [place], [place] [address]ate [address], [facility], [place]. tel:[phone] Office/outpat ient Visit, [facility], [address] [place] [address] [address], [place], [place], [id number], tel:[phone] SEC [facility] No Information 2 0-200 9 Krishnasamy Peter. [address] [place] [address], [facility], [place]. tel:[phone] Referring Provider: Peter silva, [address] [place], [place] [address]ate [address], [facility]. tel:[phone] [facility], [address] [place] [address] [address], [place], [place], [id number], tel:[phone] SEC [facility] No Information 2-200 9 Krishnasamy Peter. [address] [place] [address], [facility], [place]. tel:[phone] Referring Provider: Peter silva, [address] [place], [place] [address], [facility]. tel:[phone] Office/outpat ient Visit, [facility], [address] [place] [address] [address], [place], [place], [id number], tel:[phone] [facility] [place] No Information 1-200 8 Krishnasamy Peter. [address] [place], [place] [address], [address], [place]. tel:[phone] [facility]pat ient Visit, [facility], [address], [place], [place], [id number], [place] tel:[phone] [facility] No Information Andres-2 2-200 8 Krishnasamy Peter. [address] [facility] 102, [place], [place], [facility], [place]. tel:[phone] Referring Provider: Peter silva, [address] [facility] [place] [address], [place], [place], [facility]. tel:[phone] Office/outpat ient Visit, [facility], [address], [place], [place], [id number], [place] tel:[phone] SEC [facility] No Information Parag-2 7-200 8 Krishnasamy Peter. [address] [facility] 102, [place], [facility], [place]. tel:[phone] [facility], [address], [place], [place], [id number], [place] tel:[phone] [facility] No Information May-2 7-200 8 Krishnasamy Peter. [facility] 102, [place], [facility], [place]. tel:[phone] [facility], [address] [place], [place], [place], [id number], [place] tel:[phone] [facility] No Information Oct-1 8-200 7 Mason Pal[address] [place], [place], [facility], [place]. tel:[phone] Office/outpat ient Visit, [facility], [address] [place], [place], [place], [id number], [place] tel:[phone] [facility] No Information Sep-2 0-200 7 [address] [place], [place], [facility], [place]. tel:[phone] [facility], [address] [place], [place], [place], [id number], [place] tel:[phone] [facility] No Information Parag-2 1-200 7 [address] [place], [place], [facility], [place]. tel:[phone] Referring Provider: Lorenza Silva [address], [place], [facility]. tel:[phone] [facility], [address] [place] [address] [address], [place], [place], [id number], [place] tel:[phone] SEC [facility] No Information Parag-1 4-200 7 Ange Valdez [address] , [address], [place], [facility], [place]. tel:[phone] [facility], [address] [place], [place], [place], [id number], [place] tel:[phone] [facility] No Information May-1 7-200 7 Ange Valdez [address] , [address], [place], [place], [facility], [place]. tel:[phone] [facility], [address] [place], [place], [place], [id number], [place] tel:[phone] [facility] No Information May-1 6-200 7 Ange Valdez [address] , [address], [place], [facility], [place]. tel:[phone] [facility], [address] [place], [place], [place], [id number], [place] tel:[phone] [facility] No Information May-1 0-200 7 Ange Britt. [address], [place], [address], [place]. tel:[phone] [facility], [address] [place], [place], [place], [id number], [place] tel:[phone] [facility] No Information Apr-2 6-200 7 [address] [place], [place], [facility], [place]. tel:[phone] [facility], [address] [place], [place], [place], [id number], [place] tel:[phone] [facility] No Information Dec-2 2-200 7 Mason Pal. [address] [place], [facility], [place]. tel:[phone] Office/outpat ient Visit, [facility], [address] [place], [place], [place], [id number], [place] tel:[phone] [facility] No Information Feb-1 5-200 7 Mason [address] [place], [facility], [place]. tel:[phone] [facility], [address] [place], [place], [place], [id number], [place] tel:[phone] [facility] No Information Feb-0 1-200 7 Mason [address] [place], [facility], [place]. tel:[phone] Referring Provider: Demarco Mills, [address] [place], [address]. tel:[phone] [facility], [address] [place], [place], [place], [id number], [place] tel:[phone] [facility] No Information Duong-2 5-200 7 Mason [address] [place], [address], [place]. tel:[phone] Referring Provider: Demarco Mills, [address] [place], [address]. tel:[phone] [facility], [address] [facility] 150, [place], [place], [id number], [place] tel:[phone] [facility] No Information 7 [address] [place], [address], [place]. tel:[phone] Family History Family Member Type Diagnosis Age [...]
--- OUTSIDE RECORDS SUMMARY | 2024-11-11 11:02 | XMS_ITS | Clinical Summary ---
Author Organization [facility] Address [address] [place] [address] Phone Care Team Providers Care Honing Machine Operator Semiautomatic Name Role Phone Faheem Brady MD Primary Care Provider [phone] Allergies Active Allergy Reactions Criticality Noted Date Comments Codeine Other (see comments) 01/03/2020 Reaction: ARRHYTHMIA, , , Peanut (Diagnostic) 06/29/2015 Sulfa Antibiotics 01/03/2020 Medications Medication Sig Dispensed Refills Start Date End Date Status gabapentin (NEURONTIN) 300 MG capsule 1 tab/cap tid 0 03/18/2017 Active insulin lispro protamine-insulin lispro (HumaLOG MIX 75/25) (75-25) 100 UNIT/ML suspension as directed 0 03/18/2017 Activ e tamsulosin (FLOMAX) 0.4 MG 24 hr capsule 1 tab/cap qday 0 03/18/2017 Active losartan (COZAAR) 50 MG tablet TAKE 1 TABLET DAILY (SUBSTITUTE FOR LISINOPRIL) 6 05/01/2017 Active aspirin (ST JAXON) 81 MG EC tablet 1 tab/cap qday 0 03/18/2017 Active PROAIR HFA 108 (90 Base) MCG/ACT inhaler 12/01/2019 Act claudia finasteride (PROSCAR) 5 MG tablet 11/30/2019 Active ACCU-CHEK GUIDE test strip 11/23/2019 Active latanoprost (XALATAN) 0.005 % ophthalmic solution 11/30/2019 Active timolol (TIMOPTIC) 0.5 % ophthalmic solution 11/30/2019 Act lcaudia methylPREDNISolone (MEDROL DOSPAK) 4 MG tablet TAKE BY MOUTH DIRECTED ON INSIDE OF PACKAGE 02/29/2020 Active metoprolol tartrate (LOPRESSOR) 25 MG tablet 03/17/2020 Active simvastatin (ZOCOR) 40 MG tablet 05/14/2020 Active Blood Glucose Calibration (ACCU-CHEK GUIDE CONTROL) liquid 02/22/2020 Act claudia Nocdurna 55.3 MCG sublingual tablet 06/22/2021 Active oxybutynin XL (DITROPAN-XL) 5 MG 24 hr tablet 08/10/2021 Active desmopressin (DDAVP) 0.1 MG tablet 02/20/2022 Active traMADol (ULTRAM) 50 MG tablet Take 50 mg by mouth every 6 (six) hours if needed for pain 12/15/2021 Active Lancet Devices (Simple Diagnostics Lancing Dev) [facility] [place] 06/12/2022 Active Pharmacist Choice Lancets [facility] [place] 06/12/2022 Active Active Problems Problem Noted Date Diagnosed Date Diabetes mellitus without me ntion of complication, type II or unspecified type, uncontrolled 01/03/2020 Other proteinuria 03/18/2017 Type 2 diabetes mellitus wit h other diabetic kidney complication 03/18/2017 Essential (primary) hypertension 03/18/2017 Other hyperlipidemia 03/18/2017 Overview (12/27/2018): Converted unresolved ICD9, potential mismatch. Coronary atherosclerosis 09/07/2013 Immunizations Name Administration Dates Next Due Influenza Split High Dose Pr eservative Free IM 08/22/2018 Influenza, Injectable, Quadrivalent 07/14/2019 Pneumococcal Conjugate 13-Valent 11/14/2016 Pneumococcal Polysaccharide 04/04/2018 Sars-cov-2, Unspecified 07/24/2021,02/21/2021, Zoster 02/14/2017 Family History Medical History Relation Comments Heart disease Father Malignant neoplastic disease Mother Heart disease Sibling Kidney disease Neg Hx Kidney stone Neg Hx Relation Status Comments Father Mother Sibling Social History Tobacco Use Types Packs/Day Years Used Date Smoking Tobacco: Never Smokeless Tobacco: Never Tobacco Cessation:Counseling Given: Not Answered Alcohol Use Standard Drinks/Week Comments No 0 (1 standard drink = 0.6 oz pur e alcohol) Sex and Gender Information Value Date Recorded Sex Assigned at Not on file Gender Identity Not on file Sexual Orientation Not on file Last Filed Vital Signs Vital Sign Reading Time Taken Comments Blood Pressure 134/78 08/22/2022 10:15 AM USED [employer] Pulse - - Temperature 36.1 ??C (96.9 ??F) 08/22/2022 10:[address] Respiratory Rate 18 08/22/2022 10:15 AM USED [employer] Oxygen Saturation - - Inhaled Oxygen Concentration - - Weight 89.4 kg (197 lb) 08/22/2022 10:15 AM USED [employer] Height 177.8 cm (5' 10 ) 08/22/2022 10:15 AM USED [employer] Body Mass Index 28.27 08/22/2022 10:15 AM USED [employer] Plan of Treatment Health Maintenance Due Date Last Done Comments Diabetic Foot Exam 1965 Ophthalmology Exam 1965 Influenza Vaccine (#1) 2024 Pneumococcal PPSV23/PCV13 65 + Years / High and Highest Risk Completed 04/04/2018, 11/14/2016 Care Teams Honing Machine Operator Semiautomatic Relationship Specialty Start Date End Date Faheem Brady MD PCP - General Family Medicine 08/22/22
[2024-11-11 19:40] LABS: Hematocrit 38.1 % (42.0-52.0); Hemoglobin 12.3 g/dL (14.0-18.0); Mean Corpuscular HGB Conc 32.3 g/dl (32-36); Mean Corpuscular Hemoglobin 32.5 pg (26-34); Mean Corpuscular Volume 100.5 fl (80-100); Mean Platelet Volume 10.4 fl (7.4-10.4); Platelet Count Result 149 k/mm3 (150-375); Red Blood Count 3.79 M/mm3 (4.6-6.20); Red Cell Distribution Width 13.2 % (11.5-14.5); White Blood Count 5.9 K/mm3 (4.5-10.0)
[2024-11-11 19:50] LABS: Albumin Level 3.7 g/dL (3.5-5.1); Anion Gap 10 mmol/L (4-12); Blood Urea Nitrogen 53 mg/dL (9-20); Calcium 8.7 mg/dL (8.4-10.2); Carbon Dioxide 23 mmol/L (22-30); Chloride 102 mmol/L (98-107); Estimated Glomerular Filt Rate 25; Glucose 124 mg/dL (65-110); Phosphorus 5.1 mg/dL (2.5-4.5); Potassium 4.8 mmol/L (3.4-5.0); Sodium 135 mmol/L (137-145)
== END 2024-11-11 10:11 | disposition home or self-care (01) ==
PROVIDERS: PCP Family Medicine; Visit Provider Internal Medicine Nephrology
DX: N17.9 Acute kidney failure, unspecified (principal); D64.9 Anemia, unspecified; R79.89 Other specified abnormal findings of blood chemistry
CPT/HCPCS: 36415; 80069; 85027

== ENCOUNTER 2024-11-12 20:49 | Inpatient (IN) | payer MEDICARE, SELFPAY ==
--- NOTE | ~2024-11-12 | CT_ITS ---
EXAMINATION: CT abdomen pelvis wo con DATE: 11/13/2024 02:16 INDICATION: Hematuria. Left lower quadrant pain. TECHNIQUE: Computed tomography (CT) of the abdomen and pelvis was performed without intravenous contr ast. The dose-length product was 585.69 mGy-cm. Automated exposure control and iterative reconstructi on technique were employed. COMPARISON: CT dated 12/10/2018 FINDINGS: There is focal consolidation of the left lower lobe with associated nodules measuring up to 6 mm. Calcified granulomas of the right hilum. No significant pleural or pericardial effusion. Heart size normal. Mild diffuse atherosclerosis of the aorta without evidence for aneurysm. Calcified gran ulomas of the spleen. There is moderate bilateral hydroureteronephrosis to the UVJs without obstructi ng stone or mass. There is diffuse bladder wall thickening. There is enlargement of the prostate glan d. There is Park catheter present in the bladder. There are radiation therapy implant seeds in the p rostate bed. Stable sclerotic lesions of the right ilium, likely bone islands. Moderate-severe lower thoracic and lumbar spondylosis. No focal lytic lesions. Nonobstructive bowel gas pattern. No free ai r. No free fluid. IMPRESSION: 1. Left lower lobe reticulonodular densities with largest nodule measuring 6 mm. These findings are m ost likely infectious/inflammatory, although neoplasm not excluded. Follow-up CT chest in 6 months re commended. 2: Moderate bilateral hydroureteronephrosis to the level of the UVJs, likely secondary to diffuse ab normal thickening of the bladder wall and enlargement of the prostate gland. No obstructing mass is s een. Cannot exclude underlying cystitis. Reviewed, dictated and finalized at location A. WAYS ASSISTANT IMPRESSION: 1. Left lower lobe reticulonodular densities with largest nodule measuring 6 mm . These findings are most likely infectious/inflammatory, although neoplasm not excluded. Follow-up CT chest in 6 months recommended. 2: Moderate bilateral hydroureteronephrosis to the level of the UVJs, likely s econdary to diffuse abnormal thickening of the bladder wall and enlargement of the prostate gland. No obstructing mass is seen. Cannot exclude underlying cyst itis.
--- NOTE | ~2024-11-12 | US_ITS ---
EXAMINATION: US renal BI DATE: 11/16/2024 16:03 INDICATION: Hydronephrosis TECHNIQUE: Multiple grayscale and Doppler ultrasound images of the kidneys were obtained. COMPARISON: 11/11/2024; CT abdomen pelvis 11/13/2024 FINDINGS: The right kidney measures 12.9 x 7.2 x 6.2 cm. The left kidney measures 12.2 x 6.9 x 5.6 cm. The kidn eys demonstrate normal parenchymal echogenicity. There is moderate bilateral pelviectasis and caliect asis. The bladder is decompressed by Park catheter. IMPRESSION: Moderate bilateral hydronephrosis, slightly improved bilaterally in the prior ultrasound, similar to the prior CT. Reviewed, dictated and finalized at location K. R PUMPING STATION ENGINEER IMPRESSION: Moderate bilateral hydronephrosis, slightly improved bilaterally in the prior u ltrasound, similar to the prior CT.
--- OUTSIDE RECORDS SUMMARY | 2024-11-12 20:51 | XMS_ITS | Clinical Summary ---
Author Organization [facility] Address [address] [place] [address] Phone Care Team Providers Care Maintenance Of Way Supervisor Name Role Phone Faheem Brady MD Primary Care Provider [phone] Allergies Active Allergy Reactions Criticality Noted Date [...] (TIMOPTIC) 0.5 % ophthalmic solution 11/30/2019 Act claudia methylPREDNISolone (MEDROL DOSPAK) 4 MG tablet TAKE [...] Active Lancet Devices ([employer] Lancing Dev) [facility] [place] 06/12/2022 Active Pharmacist Choice Lancets [facility] [place] 06/12/2022 Active Active Problems Problem Noted Date [...] Comments Blood Pressure 134/78 08/22/2022 10:15 AM COIN ROLLING MACHINE OPERATOR Pulse - - Temperature 36.1 ??C (96.9 ??F) 08/22/2022 10:[address] Respiratory Rate 18 08/22/2022 10:15 AM COIN ROLLING MACHINE OPERATOR Oxygen Saturation - - Inhaled Oxygen Concentration - - Weight 89.4 kg (197 lb) 08/22/2022 10:15 AM COIN ROLLING MACHINE OPERATOR Height 177.8 cm (5' 10 ) 08/22/2022 10:15 AM COIN ROLLING MACHINE OPERATOR Body Mass Index 28.27 08/22/2022 10:15 AM COIN ROLLING MACHINE OPERATOR Plan of Treatment Health Maintenance Due Date Last Done Comments Diabetic Foot Exam 1965 Ophthalmology Exam 1965 Influenza Vaccine (#1) 2024 Pneumococcal PPSV23/PCV13 65 + Years / High and Highest Risk Completed 04/04/2018, 11/14/[address] Supervisor Relationship Specialty Start Date End Date Faheem Brady MD PCP - General Family Medicine 08/22/22
--- OUTSIDE RECORDS SUMMARY | 2024-11-12 20:51 | XMS_ITS | Continuity of Care Document ---
Author Organization [employer] [facility] Address [address] [place] [address] Dr Os[address] [place] [phone] Phone Care Team Providers Care Customer Advisor Specialist Name Role Phone Peter Felix Unavailable Unavailable [...] Copied on Encounter Office/outpat ient Visit, Est [facility], [address] [place] [address] [address], [place], [place], [address], tel:[phone] [facility] [place] No Information 0 Krishcaron Peter. [address] [place] [address], [address], [place]. tel:[phone] Referring Provider: Peter silva, [address] [place], [place] [address]ate [place] [address], [place], [facility]. tel:[phone] [facility], [address] [place] [address] [address], [place], [place], [address], tel:[phone] [facility] [place] No Information 0 Clintonishnasamy Peter. Formerly [facility], 1928–[address]31 [facility] 102, [place], [address], [place]. tel:[phone] Referring Provider: Peter silva, [address] [place] [address] 102, [place], [facility]. tel:[phone] [facility], [address] [place] [address] [address], [place], [place], [address], tel:[phone] [facility] [place] No Information 0 Krishnasamy Peter. [address], [facility], [place]. tel:[phone] Office/outpat ient Visit, [facility], [address] [place] [address] [address], [place], [place], [address], tel:[phone] [facility] [place] No Information Mar-0 2-200 9 Krishnasamy Peter. [address] [place], [place] [address]ate [address], [facility], [place]. tel:[phone] Office/outpat ient Visit, [facility], [address] [place] [address] [address], [place], [place], [address], tel:[phone] SEC [facility] No Information 2 0-200 9 Krishnasamy Peter. [address] [place] [address], [facility], [place]. tel:[phone] Referring Provider: Peter silva, [address] [place], [place] [address]ate [address], [facility]. tel:[phone] [facility], [address] [place] [address] [address], [place], [place], [address], tel:[phone] SEC [facility] No Information 2-200 9 Krishnasamy Peter. [address] [place] [address], [facility], [place]. tel:[phone] Referring Provider: Peter silva, [address] [place], [place] [address]ate [address], [facility]. tel:[phone] Office/outpat ient Visit, [facility], [address] [place] [address] [address], [place], [place], [address], tel:[phone] [facility] [place] No Information 1-200 8 Krishnasamy Peter. [address] [place], [place] [address], [address], [place]. tel:[phone] [facility]pat ient [facility], [facility], [address] [place] [address], [place], [place], [address], [place] tel:[phone] SEC [facility] No Information Andres-2 2-200 8 Krishnasamy Peter. 2421 [facility] 102, [place], [facility], [place]. tel:[phone] Referring Provider: Peter silva, 2421 [facility] [place] [address], [place], [facility]. tel:[phone] Office/outpat ient Visit, [facility], [address] [place] [address], [place], [place], [address], [place] tel:[phone] SEC [facility] No Information Parag-2 7-200 8 Krishnasamy Peter. 2421 [facility] 102, [place], [facility], [place]. tel:[phone] [facility] [address] [facility], [address] [place] [address], [place], [place], [address], [place] tel:[phone] SEC [facility] No Information May-2 7-200 8 Krishnasamy Peter. Formerly [facility], 1928–[address] [facility] 102, [place], [facility], [place]. tel:[phone] [facility], [address] [place] [address], [place], [place], [address], [place] tel:[phone] SEC [facility] No Information Oct-1 8-200 7 Mason Pal. [address] [place], [place], [facility], [place]. tel:[phone] Office/outpat ient Visit, [facility], [address] [place] [address], [place], [place], [address], [place] tel:[phone] [facility] No Information Sep-2 0-200 7 Mason Pal. [address] [place], [facility], [place]. tel:[phone] [facility] [address] [facility], [address] [place] [address], [place], [place], [address], [place] tel:[phone] [facility] No Information Parag-2 1-200 7 Mason Pal. [address] [place], [facility], [place]. tel:[phone] Referring Provider: Lorenza Silva [address], [place], [facility]. tel:[phone] [facility], [address] [place] [address] [address], [place], [place], [address], [place] tel:[phone] SEC [facility] No Information Parag-1 4-200 7 Ange Valdez [address] , [address], [place], [facility], [place]. tel:[phone] [facility], [address] [place] [address], [place], [place], [address], [place] tel:[phone] SEC [facility] No Information May-1 7-200 7 Ange Valdez [address] , [address], [place], [facility], [place]. tel:[phone] [facility] [address] [facility], [address] [place] [address], [place], [place], [address], [place] tel:[phone] [facility] No Information May-1 6-200 7 Ange Valdez [address] , [address], [place], [facility], [place]. tel:[phone] [facility] [address] [facility], [address] [place] [address], [place], [place], [address], [place] tel:[phone] SEC [facility] No Information May-1 0-200 7 Ange Britt. [address], [place], [address], [place]. tel:[phone] [facility], [address] [place] [address], [place], [place], [address], [place] tel:[phone] [facility] No Information Apr-2 6-200 7 Mason Pal. [address] [place], [place], [facility], [place]. tel:[phone] [facility], [address] [place] [address], [place], [place], [address], [place] tel:[phone] [facility] No Information Dec-2 2-200 7 Mason Pal. [address] [place], [facility], [place]. tel:[phone] Office/outpat ient Visit, Est [facility], [address] [place] [address], [place], [place], [address], [place] tel:[phone] [facility] No Information Feb-1 5-200 7 Mason Pal. [address] [place], [facility], [place]. tel:[phone] [facility], [address] [place] [address], [place], [place], [address], [place] tel:[phone] [facility] No Information Feb-0 1-200 7 Mason Pal. [address] [place], [facility], [place]. tel:[phone] Referring Provider: Demarco Mills, [address] [place], [address]. tel:[phone] [facility], [address] [place] [address], [place], [place], [address], [place] tel:[phone] [facility] No Information Duong-2 5-200 7 Mason Pal. [address] [place], [address], [place]. tel:[phone] Referring Provider: Demarco Mills, [address] [place], [address]. tel:[phone] [facility], [address] [facility] 150, [place], [place], [address], [place] tel:[phone] [facility] No Information 7 Mason Pal. [address] [place], [address], [place]. tel:[phone] Family History Family Member Type Diagnosis Age At Onset No Information Payers Payer name Insurance type Covered green party ID Authoriza tion(s) No Information Social History [...]
[2024-11-12 21:15] VITALS: BP 132/62; PULSE 71; RESP 16; TEMP 36.7; O2SAT 100
--- OUTSIDE RECORDS SUMMARY | 2024-11-13 00:03 | XMS_ITS | Continuity of Care Document ---
Author Organization [employer] [facility] Address [address] [place] [address] Dr [address] [place] [phone] Phone Care Team Providers Care Bulker Name Role Phone Peter Felix Unavailable Unavailable [...] Copied on Encounter Office/outpat ient Visit, Est [facility], [address] [place] [address] [address], [place], [place], [address], tel:[phone] [facility] No Information 0 Krishcaron Peter. [address] [place] [address], [address], [place]. tel:[phone] Referring Provider: Peter silva, [address] [place], [place] [address]ate [place] [address], [place], [facility]. tel:[phone] [facility], [address] [place] [address] [address], [place], [place], [address], tel:[phone] [facility] [place] No Information 0 Clintonishnasamy Peter. [facility] [place] 102, [place], [address], [place]. tel:[phone] Referring Provider: Peter silva, [address] [place] [address] 102, [place], [facility]. tel:[phone] [facility], [address] [place] [address] [address], [place], [place], [address], tel:[phone] [facility] [place] No Information 0 Krishnasamy Peter. [address], [facility], [place]. tel:[phone] Office/outpat ient Visit, [facility], [address] [place] [address] [address], [place], [place], [address], tel:[phone] [facility] [place] No Information Mar-0 2-200 9 Krishnasamy Peter. [address] [place], [place] [address]ate [address], [facility], [place]. tel:[phone] Office/outpat ient Visit, [facility], [address] [place] [address] [address], [place], [place], [address], tel:[phone] [facility] No Information 2 0-200 9 Krishnasamy Peter. [address] [place] [address], [facility], [place]. tel:[phone] Referring Provider: Peter silva, [address] [place], [place] [address], [facility]. tel:[phone] [facility], [address] [place] [address] [address], [place], [place], [address], tel:[phone] SEC [facility] No Information 2-200 9 Krishnasamy Peter. [address] [place] [address], [facility], [place]. tel:[phone] Referring Provider: Peter silva, [address] [place], [place] [address]ate [address], [facility]. tel:[phone] Office/outpat ient Visit, [facility], [address] [place] [address] [address], [place], [place], [address], tel:[phone] [facility] [place] No Information 1-200 8 Krishnasamy Peter. [address] [place], [place] [address] [address], [address], [place]. tel:[phone] [facility]pat ient [facility], [facility], [address] [address], [place], [place], [address], [place] tel:[phone] SEC [facility] No Information Andres-2 2-200 8 Krishnasamy Peter. 2421 [facility] 102, [place], [facility], [place]. tel:[phone] Referring Provider: Peter silva, 2421 [facility] [place] [address], [place], [facility]. tel:[phone] Office/outpat ient Visit, [facility], [address] [address], [place], [place], [address], [place] tel:[phone] [facility] No Information Parag-2 7-200 8 Krishnasamy Peter. 2421 [facility] 102, [place], [facility], [place]. tel:[phone] [facility], [address] [address] [address], [place], [place], [address], [place] tel:[phone] SEC [facility] No Information May-2 7-200 8 Krishnasamy Peter. [facility] 102, [place], [facility], [place]. tel:[phone] [facility], [address] [address], [place], [place], [address], [place] tel:[phone] [facility] No Information Oct-1 8-200 7 Mason Pal. [address] [place], [facility], [place]. tel:[phone] Office/outpat ient Visit, [facility], [address] [address], [place], [place], [address], [place] tel:[phone] [facility] No Information Sep-2 0-200 7 Mason Pal. [address] [place], [facility], [place]. tel:[phone] [facility], [address] [address], [place], [place], [address], [place] tel:[phone] [facility] No Information Parag-2 1-200 7 Mason Pal. [address] [place], [facility], [place]. tel:[phone] Referring Provider: Lorenza Silva [address], [place], [facility]. tel:[phone] [facility], [address] [place] [address] [address], [place], [place], [address], [place] tel:[phone] SEC [facility] No Information Parag-1 4-200 7 Ange Valdez [address], [place], [facility], [place]. tel:[phone] [facility], [address] [address], [place], [place], [address], [place] tel:[phone] [facility] No Information May-1 7-200 7 Ange Valdez [address], [place], [facility], [place]. tel:[phone] [facility], [address] [address], [place], [place], [address], [place] tel:[phone] [facility] No Information May-1 6-200 7 Ange Valdez [address], [place], [facility], [place]. tel:[phone] [facility], [address] [address], [place], [place], [address], [place] tel:[phone] [facility] No Information May-1 0-200 7 Ange Britt. [address], [place], [address], [place]. tel:[phone] [facility], [address] [address], [place], [place], [address], [place] tel:[phone] [facility] No Information Apr-2 6-200 7 Mason Pal. [address] [place], [facility], [place]. tel:[phone] [facility], [address] [address], [place], [place], [address], [place] tel:[phone] [facility] No Information Dec-2 2-200 7 Mason Pal. [address] [place], [facility], [place]. tel:[phone] Office/outpat ient Visit, Est [facility], [address] [address], [place], [place], [address], [place] tel:[phone] [facility] No Information Feb-1 5-200 7 Mason Pal. [address] [place], [facility], [place]. tel:[phone] [facility], [address] [address], [place], [place], [address], [place] tel:[phone] [facility] No Information Feb-0 1-200 7 Mason Pal. [address] [place], [facility], [place]. tel:[phone] Referring Provider: Demarco Mills, [address] [place], [address]. tel:[phone] [facility], [address], [place], [place], [address], [place] tel:[phone] [facility] No Information Duong-2 5-200 7 Mason Pal. [address] [place], [address], [place]. tel:[phone] Referring Provider: Demarco Mills, [address] [place], [address]. tel:[phone] [facility], [address] [facility] 150, [place], [place], [address], [place] tel:[phone] [facility] No Information 7 Mason Pal. [address] [place], [address], [place]. tel:[phone] Family History Family Member Type Diagnosis Age At Onset No Information Payers Payer name Insurance type Covered constitution party ID Authoriza tion(s) No Information Social [...]
--- OUTSIDE RECORDS SUMMARY | 2024-11-13 00:03 | XMS_ITS | Clinical Summary ---
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 PRESS OPERATOR Pulse - - Temperature 36.1 ??C (96.9 ??F) 08/22/2022 10:[address] Respiratory Rate 18 08/22/2022 10:15 AM APPLE PRESS OPERATOR Oxygen Saturation - - Inhaled Oxygen Concentration - - Weight 89.4 kg (197 lb) 08/22/2022 10:15 AM APPLE PRESS OPERATOR Height 177.8 cm (5' 10 ) 08/22/2022 10:15 AM APPLE PRESS OPERATOR Body Mass Index 28.27 08/22/2022 10:15 AM APPLE PRESS OPERATOR Plan of Treatment Health Maintenance Due Date Last Done Comments Diabetic Foot Exam 1963 Ophthalmology Exam 1965 Influenza Vaccine (#1) 2024 Pneumococcal PPSV23/PCV13 65 + Years / High and Highest Risk Completed 04/04/2018, 11/14/2016 Care Teams Leasing Assistant Relationship Specialty Start Date End Date Faheem Brady MD PCP - General Family Medicine 08/22/22
--- NOTE | 2024-11-13 00:21 | ED_ITS ---
HPI - Male Genitourinary General Chief complaint: Urogenital-Male Stated complaint: blood in new catheter since 1100 Time Seen by Provider: 11/12/24 23:34 Source: patient and family () Mode of arrival: ambulatory Limitations: no limitations History of Present Illness HPI Narrative: Patient occasionally has required cooney catheter insertion but does not chronically have a Cooney in place. Saw urologist earlier 11/12/24, arriving without a Cooney in place but one was placed in the urologists office (Dr Killian). Initial plan was for the OCT[facility] to place it but they state Lavinia had difficulty so it was placed by a physiician due to stricture. This was at approximately 1100. Drained >2000cc per . History of UTI but no hx kidney stones. Denies abdominal pain but then states pain 01/21. They were warned that there would be some blood and there was initially but it continued to be bloody (bright red) and then he started having episodes of shaking at home as well as nausea. No fevers but chills. Not on anticoagulation or steroids. Had flank pain a few days ago, resolved now. He has felt wobby. Related Data Home Medications ?Medication ?Instructions ?Recorded ?Confirmed ?Last Taken ?Type aspirin 81 mg tablet,delayed 81 mg PO .QOD 09/26/23 11/13/24 Unknown History release latanoprost 0.005 % eye drops 1 drp EACH EYE DAILY 04/21/24 11/13/24 Unknown History timolol maleate 0.5 % eye drops 1 drp EACH EYE DIRECTED 04/21/24 11/13/24 Unknown History empagliflozin 25 mg tablet 25 mg PO QAM 09/08/24 11/13/24 Unknown History (Jardiance) gabapentin 300 mg capsule 300 mg PO DAILY 11/13/24 11/13/24 Unknown History insulin glargine 100 unit/mL 54 unit subcut DAILY 11/13/24 11/13/24 Unknown History subcutaneous solution (Lantus U-100 Insulin) tamsulosin 0.4 mg capsule 0.4 mg PO HS 11/13/24 11/13/24 Unknown History Allergies Allergy/AdvReac Type Severity Reaction Status Date / Time codeine Allergy Unknown felt wierd Verified 11/13/24 06:36 lisinopril Allergy Unknown cough Verified 11/13/24 06:36 peanut Allergy Unknown Swelling Verified 11/13/24 06:36 of Lip/Tongue/Throat Sulfa (Sulfonamide Allergy Unknown Skin Verified 11/13/24 06:36 Antibiotics) Reaction PMFSH Past Medical History Medical History (Updated 11/13/24 @ 20:24 by Dorita Guerrier MD) Urethral stricture History of UTI Diabetic retinopathy associated with controlled type 2 diabetes mellitus Multinodular goiter Type 2 diabetes mellitus with diabetic neuropathy, unspecified Prostatic hypertrophy CAD (coronary artery disease) Essential (primary) hypertension Mixed hyperlipidemia Surgical History Surgical History History of prostate surgery Family History Family History Sibling Diabetes mellitus Hypertension Family history of elevated blood lipids Father Family history of glaucoma, Onset Age: 90 Family history of elevated blood lipids, Onset Age: 90 Family history of cardiovascular disease, Onset Age: 90 Diabetes mellitus Hypertension Family history of dementia Mother Family history of malignant neoplasm of stomach, Onset Age: 78 Family history of dementia Social History Social History Smoking status: Former smoker Tobacco type: cigars Alcohol intake: never Drinks per week: 2 Do You Feel Safe in your Home?: Yes Lack of Transportation: No Lack of Food: Never True Current Housing: I Have Housing Concerned About Future Housing: No Difficulty Paying Gas/Electric Bills: No Difficulty Paying for Meds: No Currently Unemployed: No Education: High School Diploma/GED Difficulty w/ Childcare or Family Care: No Living arrangements: with family Gender identity (if verbalized by the patient): Male Spiritual care concerns: No Exam 2 Narrative: GENERAL: Well-appearing, well-nourished, and in no acute distress. HEAD: Normocephalic, atraumatic. EYES: Non injected, non icteric ENT: Nares clear, no rhinorrhea or epistaxis. NECK: Supple. CHEST: Speaking in full sentences. No respiratory distress. HEART: Regular rate and rhythm. . ABDOMEN: Soft, nondistended. Mild TTP LLQ > RLQ. No rigidity or guarding. Not peritoneal. : No CVA tenderness. Cooney cathter in place, gross hematuria in leg bag EXTREMITIES: Normal range of motion. No lower extremity edema. SKIN: Warm, dry, no rash. NEURO: No focal deficits. Alert and oriented x3. PSYCH: Normal mood and affect. Course Vital Signs Vital signs: Vital Signs Temperature 98.1 F 11/12/24 21:15 Pulse Rate 71 11/12/24 21:15 Respiratory Rate 16 11/12/24 21:15 Blood Pressure 132/62 11/12/24 21:15 Pulse Oximetry 100 11/12/24 21:15 Temperature 98.4 F 11/13/24 14:00 Pulse Rate 79 11/13/24 14:00 Respiratory Rate 16 11/13/24 14:00 Blood Pressure 130/76 11/13/24 14:00 Pulse Oximetry 100 11/13/24 14:00 Oxygen Delivery Room Air 11/13/24 08:00 MDM - Male Genitourinary MDM Narrative Medical decision making narrative: Patient presents with gross hematuria ever since Cooney catheter was placed in urologist's office by physician at approximately 1100. Drained >2000cc by report initially and continues to drain. No clots. Started having chills and what sounds to be rigors as well as nausea. In the emergency department they are afebrile with vital signs within normal limits. Urinalysis does not show bacteriuria however there is marked hematuria as well as pyuria and urine also has nitrates and leukocyte esterase. For this reason, will initiate antibiotics given concern for infection. Previous urine culture from 04/20/2023 is reviewed which grew Klebs aerogenes (Enterobacter). This was resistant to Augmentin, cefazolin and indeterminate to nitrofurantoin but was sensitive to the following: Ceftazidime, cefepime, ceftriaxone, ciprofloxacin, levofloxacin, gentamicin, Bactrim, and Pip/Tazo. He has an allergy to sulfa. Will give 1st dose of ciprofloxacin with the rest of the course prescribed. Patient has hyperglycemia with a slight anion gap; mild acidosis although not frankly acidotic and no ketones in urine. Patient's baseline creatinine is reviewed and was previously 1.1-1.2 but with continued worsening thus likely MAXWELL superimposed on CKD. 1 unit IV fluids are ordered for both these issues. CT abd/pelvis will be non contrast as a result. Morphine given for pain. Spoke with urologist Dr. Hart who concurs with the management to include observation admission for further IV hydration and antibiotics given concern for possibly pending sepsis due to urinary tract infection. He does recommend based on the bilateral hydroureteronephrosis to make patient NPO despite the fact that no obstructing lesions were seen. Discussed code status with patient who confirms that in the event of cardiopulmonary arrest he would want chest compressions/CPR initiated but does NOT want intubation/mechanical ventilation; modified code status entered. Patient discussed with on-call hospitalist attending physician Dr. Palmer. Admission orders placed. Differential Diagnosis Differential diagnosis: Likely urinary tract infection (/hemorrhagic cystitis) and other (Traumatic insertion (likely due to urethral stricture), kidney stone; pyelonephritis; considered coagulopathy) Lab Data Attestation: I reviewed the patient's lab results. 11/13/24 07:50 11/13/24 07:49 Labs: Lab Results 11/12/24 11/13/24 11/13/24 Range/Units 23:58 00:50 00:51 WBC 13.4 H (4.5-10.0) K/mm3 RBC 4.50 L (4.6-6.20) M/mm3 Hgb 14.4 (14.0-18.0) g/dL Hct 44.4 (42.0-52.0) % MCV 98.7 (80-100) fl MCH 32.0 (26-34) pg MCHC 32.4 (32-36) g/dl RDW 13.1 (11.5-14.5) % Plt Count 163 (150-375) k/mm3 MPV 9.7 (7.4-10.4) fl Immature Gran % (Auto) 0.3 (0-0.5) % Neut % (Auto) 90.2 H (45.5-73.1) % Lymph % (Auto) 4.3 L (18.3-44.2) % [place] % (Auto) 5.0 (2.6-8.5) % Eos % (Auto) 0.1 (0-4.4) % Baso % (Auto) 0.1 L (0.2-1.2) % Lymph # (Auto) 0.58 L (0.9-3.2) K/mm3 [place] # (Auto) 0.7 H (0.1-0.6) K/mm3 Eos # (Auto) 0.0 (0-0.3) K/mm3 Baso # (Auto) 0.0 (0.0-0.1) K/mm3 Abs Immat Gran (auto) 0.04 H (0.00-0.031) K/mm3 Absolute Neuts (auto) 12.1 H (1.3-6.7) K/mm3 Absolute Nucleated RBC 0.000 (0.0-0.012) K/mm3 Nucleated RBC % 0.0 (0.0-0.2) % PT 13.8 (11.1-14.7) Seconds INR 1.0 APTT 27.0 (22.3-36.8) Seconds Sodium 136 L (137-145) mmol/L Potassium 5.0 (3.4-5.0) mmol/L Chloride 106 (98-107) mmol/L Carbon Dioxide 17 L (22-30) mmol/L Anion Gap 13 H (4-12) mmol/L BUN 56 H (9-20) mg/dL Creatinine 2.66 H (0.7-1.3) mg/dL Estim Creat Clear Calc Not Reportable Estimated GFR 24 L (59 - ) Glucose 226 H (65-110) mg/dL Lactic Acid 0.7 (0.7-2.0) mmol/L Calcium 8.5 (8.4-10.2) mg/dL Urine Color Red H (Yellow) Urine Appearance Turbid H (Clear) Urine pH 6.0 (5.0-9.0) Ur Specific [place] 1.022 (1.001-1.035) Urine Protein 3+ H (Negative) mg/dL Urine Glucose (UA) 2+ H (Negative) mg/dL Urine Ketones Negative (Negative) mg/dL Ur Blood (Man) 3+ H (Negative) Urine Nitrate Positive H (Negative) Urine Bilirubin 3+ H (Negative) Urine Urobilinogen 0.2 (<2.0) mg/dL Add Ur Microanalysis Reviewed Leukocyte Esterase Rfl 2+ H (Negative) SOHA/UL Urine RBC >100 H (0-2) /hpf Urine WBC 21-50 H (0-3) /hpf Ur Squamous Epith Cells Occasional (Few) /hpf Urine Bacteria None seen /hpf Urine Casts 0-2 Imaging Data Radiologist's impression: STAT RAD: CT Abd/Pelvis w/o contrast: Limited due to lack of IV contrast. Oconey catheter in the bladder. Cystitis and/or changes due to prostatamegaly. Correlate for sending UTI: Bilateral moderate hydroureteronephrosis to the level of the UVJ is without obstructing lesion seen. Recommend urology consultation. Left lower lobe probably infectious or inflammatory partly seen bronchiolitis, recommend dedicated chest imaging. Discharge Plan Discharge Clinical Impression: Hyperglycemia due to diabetes mellitus, Acute kidney injury superimposed on CKD, Enlarged prostate, Abnormal urinalysis Hematuria Qualifiers: Hematuria type: gross Qualified Code(s): R31.0 - Gross hematuria Patient Disposition: Still a Patient Condition: Stable
[2024-11-13 00:22] LABS: Bacteria Urine None Seen /hpf; Need Manual Microscopic Reviewed; Non Pathogenic Casts 0-2; RBC Urine >100 /hpf (0-2); Squamous Epithelial Cell Urine Occasional /hpf (Few); WBC Urine 21-50 /hpf (0-3)
[2024-11-13 00:24] LABS: Add Urine Microscopic? YES; Appearance Urine Turbid (Clear); Bilirubin Urine 3+ (Negative); Blood Urine 3+ (Negative); Color Urine Red (Yellow); Glucose Urine UA 2+ mg/dL (Negative); Ketones Urine Negative (Negative); Leukocyte Esterase Ur 2+ LEU/UL (Negative); Nitrate Urine Positive (Negative); Protein Urine 3+ mg/dL (Negative); Specific Grav Ur 1.022 (1.001-1.035); Urobilinogen Urine 0.2 mg/dL (<2.0)
[2024-11-13 00:56] LABS: Basophils Percent Auto 0.1 % (0.2-1.2); Eosinophils Percent Auto 0.1 % (0-4.4); Hematocrit 44.4 % (42.0-52.0); Hemoglobin 14.4 g/dL (14.0-18.0); Immature Granulocyte Absolute 0.04 K/mm3 (0.00-0.031); Immature Granulocyte Percent A 0.3 % (0-0.5); Lymphocytes Absolute Auto 0.58 K/mm3 (0.9-3.2); Lymphocytes Percent Auto 4.3 % (18.3-44.2); Mean Corpuscular HGB Conc 32.4 g/dl (32-36); Mean Corpuscular Volume 98.7 fl (80-100); Mean Platelet Volume 9.7 fl (7.4-10.4); Monocytes Absolute Auto 0.7 K/mm3 (0.1-0.6); Neutrophils Absolute Auto 12.1 K/mm3 (1.3-6.7); Neutrophils Percent Auto 90.2 % (45.5-73.1); Platelet Count Result 163 k/mm3 (150-375); Red Cell Distribution Width 13.1 % (11.5-14.5); White Blood Count 13.4 K/mm3 (4.5-10.0)
[2024-11-13] MEDS: MORPHINE SULFATE (*CRX) 4 MG/ML INJ IV PUSH (00:59)
[2024-11-13] MEDS: CIPROFLOXACIN 400 MG/D5W 200ML 200 ML 200 MG IVPB (01:00)
[2024-11-13 01:05] LABS: Lactic Acid Reflex 0.7 mmol/L (0.7-2.0)
[2024-11-13 01:06] LABS: Anion Gap 13 mmol/L (4-12); Blood Urea Nitrogen 56 mg/dL (9-20); Calcium 8.5 mg/dL (8.4-10.2); Carbon Dioxide 17 mmol/L (22-30); Chloride 106 mmol/L (98-107); Estimated Glomerular Filt Rate 24; Glucose 226 mg/dL (65-110); Sodium 136 mmol/L (137-145)
[2024-11-13 01:15] LABS: Prothrombin Time 13.8 Seconds (11.1-14.7)
[2024-11-13] MEDS: SODIUM CHLORIDE 0.9% IV 1,000 ML 999 ML IV CONT (01:49)
[2024-11-13 01:53] VITALS: BP 132/76; PULSE 88; RESP 18; O2SAT 99
[2024-11-13 04:23] VITALS: BP 127/71; PULSE 89; RESP 18; O2SAT 100
[2024-11-13] MEDS: LACTATED RINGERS 1,000 ML 125 ML IV CONT ×3 (05:27→21:34)
[2024-11-13 05:53] VITALS: BMI 26.6
[2024-11-13 06:06] VITALS: BP 127/70; PULSE 85; RESP 16; TEMP 36.9; O2SAT 100
--- NOTE | 2024-11-13 06:07 | ADMGEN ---
This patient, Efrain Deal, was admitted to [facility] Surg Room 305-01. Patient/family oriented to hospital policies and general routines including ID bracelet, bed and alarms, visiting hours, pain management, procedures, bathroom and other care routines, personal items, smoking policy, room service/diet, and visiting hours. Information on how to activate the Rapid Response Team has been discussed. Patient/Family are encouraged to report perceived risks to care and to ask questions if they do not understand what they are told or what they should do.
[2024-11-13 06:12] LABS: Glucose Point of Care 188 mg/dl (65-105)
[2024-11-13 07:57] LABS: Basophils Percent Auto 0.1 % (0.2-1.2); Hematocrit 38.8 % (42.0-52.0); Hemoglobin 12.6 g/dL (14.0-18.0); Immature Granulocyte Absolute 0.02 K/mm3 (0.00-0.031); Immature Granulocyte Percent A 0.2 % (0-0.5); Lymphocytes Absolute Auto 0.98 K/mm3 (0.9-3.2); Lymphocytes Percent Auto 10.7 % (18.3-44.2); Mean Corpuscular HGB Conc 32.5 g/dl (32-36); Mean Corpuscular Hemoglobin 32.4 pg (26-34); Mean Corpuscular Volume 99.7 fl (80-100); Mean Platelet Volume 9.8 fl (7.4-10.4); Monocytes Absolute Auto 0.8 K/mm3 (0.1-0.6); Monocytes Percent Auto 8.7 % (2.6-8.5); Neutrophils Absolute Auto 7.4 K/mm3 (1.3-6.7); Neutrophils Percent Auto 80.3 % (45.5-73.1); Platelet Count Result 137 k/mm3 (150-375); Red Blood Count 3.89 M/mm3 (4.6-6.20); Red Cell Distribution Width 13.2 % (11.5-14.5); White Blood Count 9.2 K/mm3 (4.5-10.0)
[2024-11-13 08:23] LABS: Alanine Aminotransferase 18 U/L (6-50); Alkaline Phosphatase 101 U/L (38-126); Anion Gap 9 mmol/L (4-12); Aspartate Amino Transferase 18 U/L (17-59); Bilirubin,Total 0.5 mg/dL (0.2-1.3); Blood Urea Nitrogen 50 mg/dL (9-20); Calcium 7.8 mg/dL (8.4-10.2); Carbon Dioxide 21 mmol/L (22-30); Chloride 108 mmol/L (98-107); Estimated CRCL calculation 25 ml/min; Estimated Glomerular Filt Rate 26; Glucose 163 mg/dL (65-110); Magnesium 2.3 mg/dL (1.6-2.3); Potassium 4.5 mmol/L (3.4-5.0); Sodium 138 mmol/L (137-145)
[2024-11-13 08:35] LABS: Hemoglobin A1C 8.5 % (<5.7)
[2024-11-13 09:08] VITALS: PULSE 72
[2024-11-13] MEDS: LOSARTAN POTASSIUM 100 MG TABLET PO (09:08)
[2024-11-13] MEDS: ASPIRIN 81 MG ENTERIC TABLET PO (09:08)
[2024-11-13] MEDS: GABAPENTIN 300 MG CAPSULE PO (09:08)
[2024-11-13] MEDS: METOPROLOL TARTRATE 25 MG TABLET PO ×2 (09:08→20:35)
[2024-11-13] MEDS: SIMVASTATIN 20 MG TABLET 40 MG PO (09:09)
[2024-11-13] MEDS: hydrALAZINE HCL 25 MG TABLET PO (09:09)
[2024-11-13] MEDS: LATANOPROST 0.005% OP SOLN 2.5 ML BTL 1 DROP EACH EYE (09:10)
[2024-11-13] MEDS: CEFEPIME 1 GM/NS 50 ML 1 GM/50 ML BAG IVPB (09:10)
[2024-11-13] MEDS: TIMOLOL MALEATE 0.5% OP SOLN 5 ML BOTTLE 1 DROP LEFT EYE ×2 (09:11→20:35)
--- NOTE | 2024-11-13 09:56 | P.HP_ITS ---
H&P: HPI History of Present Illness Date/Time: 11/13/24 09:56 Chief Complaint: Blood in urine catheter since 11:00 on 11/12/24. Narrative: Patient is a 69 year old male that developed blood in catheter y esterday after having catheter placed at urologist office for a stricture. Patient has known bilateral hydroureteronephrosis that will take a while to clear up per urology. Patient denies chest pain, shortness of breath, dizziness, nausea, or vomiting. Reports that abrasions on right terrell or from falling on ice 2 weeks ago, denies any other injuries. 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 Drinks 1-2 beers a week. In the emergency department they are afebrile with vital signs within normal limits. Urinalysis Urine red, turbid, 3+ protein, 2+ glucose, 3+ blood, positive nitrate, 3+ bilirubin, 2 + leukocytes, RBC >100, WBC 21-50. Previous urine culture from 04/20/2023 is reviewed which grew Klebs aerogenes (Enterobacter). This was resistant to Augmentin, cefazolin and indeterminate to nitrofurantoin but was sensitive to the following: Ceftazidime, cefepime, ceftriaxone, ciprofloxacin, levofloxacin, gentamicin, Bactrim, and Pip/Tazo. He has an allergy to sulfa. ER gave dose of ciprofloxacin IVPB. Patient has hyperglycemia with a slight anion gap; mild acidosis although not frankly acidotic and no ketones in urine. Patient's baseline creatinine is reviewed and was previously 1.1-1.2 but with continued worsening thus likely MAXWELL superimposed on CKD. 1 unit IV fluids are ordered for both these issues. CT abdomen/ pelvis showed: IMPRESSION: 1. Left lower lobe reticulonodular densities with largest nodule measuring 6 mm. These findings are most likely infectious/inflammatory, although neoplasm not excluded. Follow-up CT chest in 6 months recommended. 2: Moderate bilateral hydroureteronephrosis to the level of the UVJs, likely secondary to diffuse abnormal thickening of the bladder wall and enlargement of the prostate gland. No obstructing mass is seen. Cannot exclude underlying cystitis. Renal Ultrasound showed: Distended bladder with moderate bilateral hydroureteronephrosis suggesting bladder outlet obstruction versus neurogenic bladder. Review of Systems Review of Systems: All systems reviewed & are unremarkable except as noted in HPI and below PMFSH Past Medical History Medical History CAD (coronary artery disease) Diabetic retinopathy associated with controlled type 2 diabetes mellitus Essential (primary) hypertension Mixed hyperlipidemia Multinodular goiter Prostatic hypertrophy Type 2 diabetes mellitus with diabetic neuropathy, unspecified Surgical History Surgical History History of prostate surgery Family History Family History Sibling Diabetes mellitus Hypertension Family history of elevated blood lipids Father Family history of glaucoma, Onset Age: 90 Family history of elevated blood lipids, Onset Age: 90 Family history of cardiovascular disease, Onset Age: 90 Diabetes mellitus Hypertension Family history of dementia Mother Family history of malignant neoplasm of stomach, Onset Age: 78 Family history of dementia Social History Social History Smoking status: Former smoker Tobacco type: cigars Alcohol intake: never Drinks per week: 2 Do You Feel Safe in your Home?: Yes Lack of Transportation: No Lack of Food: Never True Current Housing: I Have Housing Concerned About Future Housing: No Difficulty Paying Gas/Electric Bills: No Difficulty Paying for Meds: No Currently Unemployed: No Education: High School Diploma/GED Difficulty w/ Childcare or Family Care: No Gender identity (if verbalized by the patient): Male Spiritual care concerns: No Meds Home Medications and Allergies Home Medications ?Medication ?Instructions ?Recorded ?Confirmed ?Type blood sugar diagnostic (Ultima #100 ea 12/18/22 11/13/24 Rx Test Strips) pen needle, diabetic 31 gauge x #120 ea 12/18/22 11/13/24 Rx 5/16 (1st Tier Unifine Pentips Plus) lancets 31 gauge #100 ea 04/29/23 11/13/24 Rx aspirin 81 mg tablet,delayed 81 mg PO .QOD 09/26/23 11/13/24 History release metoprolol tartrate 25 mg tablet 25 mg PO BID #200 tabs 03/10/24 11/13/24 Rx latanoprost 0.005 % eye drops 1 drp EACH EYE DAILY 04/21/24 11/13/24 History timolol maleate 0.5 % eye drops 1 drp EACH EYE DIRECTED 04/21/24 11/13/24 History metformin 500 mg tablet,extended 1,000 mg (2 x 500 mg) PO BID #360 05/06/24 11/13/24 Rx release 24 hr tabs simvastatin 40 mg tablet 40 mg PO DAILY #100 tabs 05/15/24 11/13/24 Rx meclizine 25 mg tablet 25 mg PO BID PRN dizziness #60 tabs 07/23/24 11/13/24 Rx hydrochlorothiazide 25 mg tablet 25 mg PO DAILY #90 tabs 08/04/24 11/13/24 Rx blood-glucose meter,continuous #1 ea 08/31/24 11/13/24 Rx (Dexcom G7 Porcelain Technician) losartan 100 mg tablet 100 mg PO DAILY #90 tabs 09/07/24 11/13/24 Rx empagliflozin 25 mg tablet 25 mg PO QAM 09/08/24 11/13/24 History (Jardiance) blood-glucose sensor (Dexcom G7 #1 ea 09/28/24 11/13/24 Rx Sensor device) hydralazine 25 mg tablet 25 mg PO DAILY #90 tabs 10/15/24 11/13/24 Rx gabapentin 300 mg capsule 300 mg PO DAILY 11/13/24 11/13/24 History insulin glargine 100 unit/mL 54 unit subcut DAILY 11/13/24 11/13/24 History subcutaneous solution (Lantus U-100 Insulin) tamsulosin 0.4 mg capsule 0.4 mg PO HS 11/13/24 11/13/24 History Allergies Allergy/AdvReac Type Severity Reaction Status Date / Time codeine Allergy Unknown felt wierd Verified 11/13/24 06:36 lisinopril Allergy Unknown cough Verified 11/13/24 06:36 peanut Allergy Unknown Swelling Verified 11/13/24 06:36 of Lip/Tongue/Throat Sulfa (Sulfonamide Allergy Unknown Skin Verified 11/13/24 06:36 Antibiotics) Reaction Vital Signs Vital Signs - 24 hr 11/12/24 21:15 11/13/24 01:53 11/13/24 04:23 Temperature 98.1 F Pulse Rate 71 88 89 Respiratory Rate 16 18 18 Blood Pressure 132/62 132/76 127/71 Pulse Oximetry 100 99 100 Oxygen Delivery 11/13/24 06:06 11/13/24 06:14 11/13/24 09:08 Temperature 98.4 F Pulse Rate 85 72 Respiratory Rate 16 Blood Pressure 127/70 Pulse Oximetry 100 Oxygen Delivery Room Air Exam Const: General: comfortable and no acute distress HENMT: Other: Hard of hearing. Eyes: Sclera: sclerae normal Pupils: Equal, round and reactive pupils present Resp: Effort & Inspection: normal respiratory effort Auscultation: clear to auscultation bilaterally Cardio: Rate: regular rate Rhythm: regular rhythm GI: GI Palp: Yes Soft to palpation Auscultation: normal bowel sounds Skin: Other: Two abrasions to right terrell healing. No drainage noted. Neuro: Speech: normal speech Extrem: General: no pedal edema Psych: Mental Status: mental status grossly normal Affect: normal affect H&P: Results Labs Labs: Short CBC 11/13/24 11/13/24 Range/Units 00:51 07:50 WBC 13.4 H 9.2 (4.5-10.0) K/mm3 Hgb 14.4 12.6 L (14.0-18.0) g/dL Hct 44.4 38.8 L (42.0-52.0) % Plt Count 163 137 L (150-375) k/mm3 BMP 11/13/24 11/13/24 00:51 07:49 Sodium 136 L 138 Potassium 5.0 4.5 Chloride 106 108 H Carbon Dioxide 17 L 21 L BUN 56 H 50 H Creatinine 2.66 H 2.48 H Glucose 226 H 163 H Calcium 8.5 7.8 L Liver Function 11/13/24 Range/Units 07:49 Total Bilirubin 0.5 (0.2-1.3) mg/dL AST 18 (17-59) U/L ALT 18 (6-50) U/L Alkaline Phosphatase 101 (38-126) U/L Albumin 3.0 L (3.5-5.1) g/dL Urine 11/12/24 Range/Units 23:58 Urine Color Red H (Yellow) Urine Appearance Turbid H (Clear) Urine pH 6.0 (5.0-9.0) Ur Specific [place] 1.022 (1.001-1.035) Urine Protein 3+ H (Negative) mg/dL Urine Glucose (UA) 2+ H (Negative) mg/dL Assessment and Plan Assessment and plan (1) MAXWELL (acute kidney injury): Code(s): N17.9 - Acute kidney failure, unspecified Status: Acute Assessment and Plan: * Likely secondary to urethral stricture and underlying bladder outlet obstruction. * Bilateral hydro noted on CT and MOISES * Expect renal function to improve with castle in place. * Creatinine improving from 2.66>2.48. * Monitor labs. * Urology following. * LR @125 ml/hr. (2) Hematuria: Qualifiers: Hematuria type: gross Qualified Code(s): R31.0 - Gross hematuria Code(s): R31.9 - Hematuria, unspecified Status: Acute Assessment and Plan: * Likely 2/2 UTI, hemorrhagic cystitis. * Patient was asymptomatic when retaining >2L urine prior to 11/12/24 Castle placement * Castle draining pink urine today, no clots * OK to hold home ASA x 48hrs * Monitor output. (3) Urinary tract infection in male: Code(s): N39.0 - Urinary tract infection, site not specified Status: Acute Assessment and Plan: * Urine red, turbid, 3+ protein, 2+ glucose, 3+ blood, positive nitrate, 3+ bilirubin, 2 + leukocytes, RBC >100, WBC 21-50. * Likely 2/2 severe, chronic urinary retention * Urine culture pending on IV cefepime (4) Enlarged prostate: Code(s): N40.0 - Benign prostatic hyperplasia without lower urinary tract symptoms Status: Acute Assessment and Plan: * Continue home tamsulosin * Patient has a history of medication noncompliance with tamsulosin, finasteride, desmopressin (5) Hydronephrosis: Code(s): N13.30 - Unspecified hydronephrosis Status: Acute Assessment and Plan: * Likely 2/2 severe retention, bladder distention (6) Urethral stricture: Code(s): N35.919 - Unspecified urethral stricture, male, unspecified site Status: Acute Assessment and Plan: * s/p urethral dilation 11/12/24 (7) Type 2 diabetes mellitus with diabetic neuropathy, unspecified: Code(s): E11.40 - Type 2 diabetes mellitus with diabetic neuropathy, unspecified Status: Acute Assessment and Plan: * Home Glargine 54 units subq daily, SSI, and hypoglycemic protocol. * HgbA1C 8.5%. (8) Essential (primary) hypertension: Code(s): I10 - Essential (primary) hypertension Status: Acute Assessment and Plan: * Blood pressure 127/70. * Continue Hydralazine 25 mg PO daily, Metoprolol 25 mg PO q 12, and Losartan 100 mg PO daily. (9) Mixed hyperlipidemia: Code(s): E78.2 - Mixed hyperlipidemia Status: Acute Assessment and Plan: * Continue Simvastatin 40 mg PO daily. Quality VTE Prophylaxis VTE prophylaxis: mechanical ordered Hospitalist MIPS Advance Care Plan I have confirmed that the patient's Advanced Care Plan is present, code status is documented, or surrogate decision maker is listed in patient medical record.: Yes Medication Reconciliation I have utilized all available resources to obtain, update and review the patients current medications (includes all prescriptions, OTC, herbals, cannabis, and nutritional supplements).: Yes
--- NOTE | 2024-11-13 10:44 | WPDURCON ---
Assessment and Plan Assessment and plan (1) MAXWELL (acute kidney injury): Code(s): N17.9 - Acute kidney failure, unspecified Status: Acute Assessment and Plan: - Likely secondary to urethral stricture and underlying bladder outlet obstruction - Bilateral hydro noted on CT and MOISES - Expect renal function to improve with Park in place (2) Hematuria: Qualifiers: Hematuria type: gross Qualified Code(s): R31.0 - Gross hematuria Code(s): R31.9 - Hematuria, unspecified Status: Acute Assessment and Plan: - Likely 2/2 UTI, Hemorrhagic cystitis - Patient was asymptomatic when retaining >2L urine prior to 11/12/24 Park placement - Park draining pink urine today, no clots - OK to hold home ASA x48hrs - OK for diet (3) Urinary tract infection in male: Code(s): N39.0 - Urinary tract infection, site not specified Status: Acute Assessment and Plan: - Present on admission - Likely 2/2 severe, chronic urinary retention - Urine culture pending on IV cefepime (4) Enlarged prostate: Code(s): N40.0 - Benign prostatic hyperplasia without lower urinary tract symptoms Status: Acute Assessment and Plan: - Continue home tamsulosin - Patient has a history of medication noncompliance with tamsulosin, finasteride, desmopressin (5) Hydronephrosis: Code(s): N13.30 - Unspecified hydronephrosis Status: Acute Assessment and Plan: - Likely 2/2 severe retention, bladder distention (6) Urethral stricture: Code(s): N35.919 - Unspecified urethral stricture, male, unspecified site Status: Acute Assessment and Plan: - s/p urethral dilation 11/12/24 Plan - Maintain indwelling Park catheter, properly secured off tension. No need to exchange Park as long as he is draining. Monitor closely for clots. Hold home ASA x48hrs. - Anticipate improvement in bilateral hydroureteronephrosis over the next several weeks - Agree with culture-directed antibiotics for suspected UTI - Plan for outpatient urology follow-up 11/19/24 for Urodynamics study as scheduled to assess for neurogenic bladder - Follow-up with Dr. Roldan 12/09/24 as scheduled - No plan for inpatient urologic surgical intervention at this time. We will continue to follow along. Case discussed with Dr. Alvarez, hospitalist and bedside front window cashier Consult Note HPI Date Seen: 11/13/24 Requesting Physician: Tamar Palmer MD Primary Care Provider: Lorraine Mi DO Consult Narrative Reason for consult: UTI, hydroureteronephrosis Narrative: Efrain Deal is a 69 year old male with a urological history significant for BPH with LUTS on tamsulosin s/p Urolift (2019) who was admitted overnight for evaluation of gross hematuria, UTI, MAXWELL, bilateral hydroureteronephrosis. Patient was last evaluated in the urology clinic 11/12/24 where he underwent a urethral stricture dilation and 16Fr coude Park placement with Dr. Alvarez for severe, asymptomatic acute urinary retention identified on renal ultrasound 11/11/24. His renal function has been worsening for the past several months. History of medication noncompliance. On exam, patient states he developed bleeding shortly after Park placement. Denies passing clots, suprapubic pain, dysuria, fever, nausea, vomiting. 16Fr indwelling Park currently draining pink urine, no clots. He is on daily ASA at home. PERTINENT LABS: 11/13/24 - WBC 9.2, HGB 12.6, PLTS 137, Cr 2.5 (baseline 1.1) Urinalysis 3+ blood, +nitrates, 2+LE, >100 RBC, 21-50 WBC PERTINENT IMAGIN11/13/24 CT AP WO CON - There is moderate bilateral hydroureteronephrosis to the UVJs without obstructing stone or mass. There is diffuse bladder wall thickening. There is enlargement of the prostate gland. There is Park catheter present in the bladder. There are radiation therapy implant seeds in the prostate bed. 11/11/24 Renal Ultrasound - The right kidney measures 12.7 x 5.3 x 6.5 cm. The left kidney measures 14.0 x 6.8 x 8.4 cm. The kidneys demonstrate normal echogenicity. There is moderate bilateral hydronephrosis. No stones identified. The bladder is distended with calculated bladder volume of 2106 mL. Per notation of the merry go round attendant the patient reported that his bladder did not feel full. There is mild bilateral distal hydroureter with left-sided ureteral jet visualized in the bladder on color Doppler. Review of Systems Gastrointestinal: Gastrointestinal: Denies abdominal pain and Denies vomiting Genitourinary: Genitourinary: Reports hematuria and Denies flank pain PMF Past Medical History Medical History CAD (coronary artery disease) Diabetic retinopathy associated with controlled type 2 diabetes mellitus Essential (primary) hypertension Mixed hyperlipidemia Multinodular goiter Prostatic hypertrophy Type 2 diabetes mellitus with diabetic neuropathy, unspecified Surgical History Surgical History History of prostate surgery Family History Family History Sibling Diabetes mellitus Hypertension Family history of elevated blood lipids Father Family history of glaucoma, Onset Age: 90 Family history of elevated blood lipids, Onset Age: 90 Family history of cardiovascular disease, Onset Age: 90 Diabetes mellitus Hypertension Family history of dementia Mother Family history of malignant neoplasm of stomach, Onset Age: 78 Family history of dementia Social History Social History Smoking status: Former smoker Tobacco type: cigars Alcohol intake: never Drinks per week: 2 Do You Feel Safe in your Home?: Yes Lack of Transportation: No Lack of Food: Never True Current Housing: I Have Housing Concerned About Future Housing: No Difficulty Paying Gas/Electric Bills: No Difficulty Paying for Meds: No Currently Unemployed: No Education: High School Diploma/GED Difficulty w/ Childcare or Family Care: No Gender identity (if verbalized by the patient): Male Spiritual care concerns: No Meds Home Medications and Allergies Home Medications ?Medication ?Instructions ?Recorded ?Confirmed ?Type blood sugar diagnostic (Ultima #100 ea 12/18/22 11/13/24 Rx Test Strips) pen needle, diabetic 31 gauge x #120 ea 12/18/22 11/13/24 Rx 5/16 (1st Tier Unifine Pentips Plus) lancets 31 gauge #100 ea 04/29/23 11/13/24 Rx aspirin 81 mg tablet,delayed 81 mg PO .QOD 09/26/23 11/13/24 History release metoprolol tartrate 25 mg tablet 25 mg PO BID #200 tabs 03/10/24 11/13/24 Rx latanoprost 0.005 % eye drops 1 drp EACH EYE DAILY 04/21/24 11/13/24 History timolol maleate 0.5 % eye drops 1 drp EACH EYE DIRECTED 04/21/24 11/13/24 History metformin 500 mg tablet,extended 1,000 mg (2 x 500 mg) PO BID #360 05/06/24 11/13/24 Rx release 24 hr tabs simvastatin 40 mg tablet 40 mg PO DAILY #100 tabs 05/15/24 11/13/24 Rx meclizine 25 mg tablet 25 mg PO BID PRN dizziness #60 tabs 07/23/24 11/13/24 Rx hydrochlorothiazide 25 mg tablet 25 mg PO DAILY #90 tabs 08/04/24 11/13/24 Rx blood-glucose meter,continuous #1 ea 08/31/24 11/13/24 Rx (Dexcom G7 [employer] Curator) losartan 100 mg tablet 100 mg PO DAILY #90 tabs 09/07/24 11/13/24 Rx empagliflozin 25 mg tablet 25 mg PO QAM 09/08/24 11/13/24 History (Jardiance) blood-glucose sensor (Dexcom G7 #1 ea 09/28/24 11/13/24 Rx Sensor device) hydralazine 25 mg tablet 25 mg PO DAILY #90 tabs 10/15/24 11/13/24 Rx gabapentin 300 mg capsule 300 mg PO DAILY 11/13/24 11/13/24 History insulin glargine 100 unit/mL 54 unit subcut DAILY 11/13/24 11/13/24 History subcutaneous solution (Lantus U-100 Insulin) tamsulosin 0.4 mg capsule 0.4 mg PO HS 11/13/24 11/13/24 History Allergies Allergy/AdvReac Type Severity Reaction Status Date / Time codeine Allergy Unknown felt wierd Verified 11/13/24 06:36 lisinopril Allergy Unknown cough Verified 11/13/24 06:36 peanut Allergy Unknown Swelling Verified 11/13/24 06:36 of Lip/Tongue/Throat Sulfa (Sulfonamide Allergy Unknown Skin Verified 11/13/24 06:36 Antibiotics) Reaction Vital Signs Vital Signs - 24 hr 11/12/24 21:15 11/13/24 01:53 11/13/24 04:23 Temperature 98.1 F Pulse Rate 71 88 89 Respiratory Rate 16 18 18 Blood Pressure 132/62 132/76 127/71 Pulse Oximetry 100 99 100 Oxygen Delivery 11/13/24 06:06 11/13/24 06:14 11/13/24 09:08 Temperature 98.4 F Pulse Rate 85 72 Respiratory Rate 16 Blood Pressure 127/70 Pulse Oximetry 100 Oxygen Delivery Room Air Exam Const: General: comfortable and no acute distress HENMT: Other: Hard of hearing Eyes: General: appearance normal, both eyes and all related structures Resp: Effort & Inspection: normal respiratory effort GI: Other: Nontender : Male General Exam: Yes normal external exam Urinary Catheter: Urinary Catheter: urine pink (16Fr secured with StatLock on tension ) Skin: General skin exam: normal color Neuro: Speech: normal speech Psych: Speech and movement: Normal speech and movement present Affect: normal affect Results Labs 11/13/24 07:50 11/13/24 07:49 Labs: Short CBC 11/13/24 11/13/24 Range/Units 00:51 07:50 WBC 13.4 H 9.2 (4.5-10.0) K/mm3 Hgb 14.4 12.6 L (14.0-18.0) g/dL Hct 44.4 38.8 L (42.0-52.0) % Plt Count 163 137 L (150-375) k/mm3 BMP 11/13/24 11/13/24 00:51 07:49 Sodium 136 L 138 Potassium 5.0 4.5 Chloride 106 108 H Carbon Dioxide 17 L 21 L BUN 56 H 50 H Creatinine 2.66 H 2.48 H Glucose 226 H 163 H Calcium 8.5 7.8 L Liver Function 11/13/24 Range/Units 07:49 Total Bilirubin 0.5 (0.2-1.3) mg/dL AST 18 (17-59) U/L ALT 18 (6-50) U/L Alkaline Phosphatase 101 (38-126) U/L Albumin 3.0 L (3.5-5.1) g/dL Urine 11/12/24 Range/Units 23:58 Urine Color Red H (Yellow) Urine Appearance Turbid H (Clear) Urine pH 6.0 (5.0-9.0) Ur Specific [place] 1.022 (1.001-1.035) Urine Protein 3+ H (Negative) mg/dL Urine Glucose (UA) 2+ H (Negative) mg/dL
[2024-11-13 11:31] LABS: Glucose Point of Care 140 mg/dl (65-105)
[2024-11-13 14:00] VITALS: BP 130/76; PULSE 79; RESP 16; TEMP 36.9; O2SAT 100
[2024-11-13 16:40] LABS: Glucose Point of Care 263 mg/dl (65-105)
[2024-11-13] MEDS: INSULIN ASPART (*BKC) 100 UNITS/ML SUB-Q ×2 (16:59→20:42)
[2024-11-13 20:19] LABS: Glucose Point of Care 381 mg/dl (65-105)
[2024-11-13] MEDS: TAMSULOSIN HCL 0.4 MG CAPSULE PO (20:36)
[2024-11-13 21:55] VITALS: BP 157/72; PULSE 72; RESP 16; TEMP 37.1; O2SAT 97
[2024-11-14 05:45] VITALS: BP 116/64; PULSE 81; RESP 14; TEMP 37.4; O2SAT 98
[2024-11-14 06:36] LABS: Basophils Percent Auto 0.2 % (0.2-1.2); Eosinophils Absolute Auto 0.2 K/mm3 (0-0.3); Eosinophils Percent Auto 2.2 % (0-4.4); Hematocrit 37.9 % (42.0-52.0); Hemoglobin 12.5 g/dL (14.0-18.0); Immature Granulocyte Absolute 0.02 K/mm3 (0.00-0.031); Immature Granulocyte Percent A 0.2 % (0-0.5); Lymphocytes Absolute Auto 1.02 K/mm3 (0.9-3.2); Lymphocytes Percent Auto 11.4 % (18.3-44.2); Mean Corpuscular Hemoglobin 32.8 pg (26-34); Mean Corpuscular Volume 99.5 fl (80-100); Mean Platelet Volume 10.4 fl (7.4-10.4); Monocytes Absolute Auto 0.9 K/mm3 (0.1-0.6); Monocytes Percent Auto 10.2 % (2.6-8.5); Neutrophils Absolute Auto 6.8 K/mm3 (1.3-6.7); Neutrophils Percent Auto 75.8 % (45.5-73.1); Platelet Count Result 130 k/mm3 (150-375); Red Blood Count 3.81 M/mm3 (4.6-6.20); Red Cell Distribution Width 13.1 % (11.5-14.5); White Blood Count 8.9 K/mm3 (4.5-10.0)
[2024-11-14 06:43] LABS: Alanine Aminotransferase 15 U/L (6-50); Albumin Level 2.8 g/dL (3.5-5.1); Alkaline Phosphatase 94 U/L (38-126); Anion Gap 5 mmol/L (4-12); Aspartate Amino Transferase 15 U/L (17-59); Bilirubin,Total 0.4 mg/dL (0.2-1.3); Blood Urea Nitrogen 42 mg/dL (9-20); Calcium 8.1 mg/dL (8.4-10.2); Carbon Dioxide 23 mmol/L (22-30); Chloride 108 mmol/L (98-107); Estimated CRCL calculation 29 ml/min; Estimated Glomerular Filt Rate 30; Glucose 184 mg/dL (65-110); Sodium 136 mmol/L (137-145)
[2024-11-14 08:08] LABS: Glucose Point of Care 180 mg/dl (65-105)
[2024-11-14] MEDS: LOSARTAN POTASSIUM 100 MG TABLET PO (08:16)
[2024-11-14] MEDS: SIMVASTATIN 20 MG TABLET 40 MG PO (08:16)
[2024-11-14] MEDS: GABAPENTIN 300 MG CAPSULE PO (08:16)
[2024-11-14] MEDS: METOPROLOL TARTRATE 25 MG TABLET PO ×2 (08:17→20:23)
[2024-11-14] MEDS: hydrALAZINE HCL 25 MG TABLET PO (08:17)
[2024-11-14] MEDS: CEFEPIME 1 GM/NS 50 ML 1 GM/50 ML BAG IVPB (08:17)
[2024-11-14] MEDS: LACTATED RINGERS 1,000 ML 125 ML IV CONT ×2 (08:23→20:23)
[2024-11-14] MEDS: LATANOPROST 0.005% OP SOLN 2.5 ML BTL 1 DROP EACH EYE (08:24)
[2024-11-14] MEDS: TIMOLOL MALEATE 0.5% OP SOLN 5 ML BOTTLE 1 DROP LEFT EYE ×2 (08:24→20:31)
[2024-11-14] MEDS: INSULIN GLARGINE (*BKC) 100 UNITS/ML 54 UNITS SUB-Q (08:25)
--- NOTE | 2024-11-14 10:49 | P.PNIM_ITS ---
Progress Note: A&P Assessment and Plan (1) MAXWELL (acute kidney injury): Code(s): N17.9 - Acute kidney failure, unspecified Status: Acute Assessment and Plan: * Likely secondary to urethral stricture and underlying bladder outlet obstruction. * Bilateral hydro noted on CT and MOISES * Expect renal function to improve with castle in place. * Creatinine improving from 2.66>2.48>2.15. * Monitor labs. * Urology following. * LR @125 ml/hr. (2) Hematuria: Qualifiers: Hematuria type: gross Qualified Code(s): R31.0 - Gross hematuria Code(s): R31.9 - Hematuria, unspecified Status: Acute Assessment and Plan: * Likely 2/2 UTI, hemorrhagic cystitis. * Patient was asymptomatic when retaining >2L urine prior to 11/12/24 Castle placement * Castle draining pink urine today, no clots * OK to hold home ASA x 48hrs * Urology following, ordered for castle to be irrigated. * Monitor output. (3) Urinary tract infection in male: Code(s): N39.0 - Urinary tract infection, site not specified Status: Acute Assessment and Plan: * Urine red, turbid, 3+ protein, 2+ glucose, 3+ blood, positive nitrate, 3+ bilirubin, 2 + leukocytes, RBC >100, WBC 21-50. * Likely 2/2 severe, chronic urinary retention * Urine culture pending on IV cefepime (4) Enlarged prostate: Code(s): N40.0 - Benign prostatic hyperplasia without lower urinary tract symptoms Status: Acute Assessment and Plan: * Continue home tamsulosin * Patient has a history of medication noncompliance with tamsulosin, finasteride, desmopressin (5) Hydronephrosis: Code(s): N13.30 - Unspecified hydronephrosis Status: Acute Assessment and Plan: * Likely 2/2 severe retention, bladder distention (6) Urethral stricture: Code(s): N35.919 - Unspecified urethral stricture, male, unspecified site Status: Inactive Assessment and Plan: * s/p urethral dilation 11/12/24 (7) Type 2 diabetes mellitus with diabetic neuropathy, unspecified: Code(s): E11.40 - Type 2 diabetes mellitus with diabetic neuropathy, unspecified Status: Acute Assessment and Plan: * Home Glargine 54 units subq daily, SSI, and hypoglycemic protocol. * HgbA1C 8.5%. (8) Essential (primary) hypertension: Code(s): I10 - Essential (primary) hypertension Status: Acute Assessment and Plan: * Blood pressure 127/57. * Continue Hydralazine 25 mg PO daily, Metoprolol 25 mg PO q 12, and Losartan 100 mg PO daily. (9) Mixed hyperlipidemia: Code(s): E78.2 - Mixed hyperlipidemia Status: Acute Assessment and Plan: * Continue Simvastatin 40 mg PO daily. Subjective Date/time seen: 11/14/24 10:49 Interval history: Patient reports feeling tired and not getting much sleep last night due to noise. Patient denies abominal pain, burning with urine draining, nausea, or vomiting. Review of Systems Review of Systems: All systems reviewed & are unremarkable except as noted in HPI and below Exam Const: General: comfortable and no acute distress Eyes: Sclera: sclerae normal Resp: Effort & Inspection: normal respiratory effort Auscultation: clear to auscultation bilaterally Cardio: Rate: regular rate Rhythm: regular rhythm GI: GI Palp: Yes Soft to palpation Auscultation: normal bowel sounds Urinary Catheter: Urinary Catheter: patent and draining and urine red Skin: Other: Two abrasions to right terrell healing. No drainage noted. Neuro: Speech: normal speech Extrem: General: no pedal edema Psych: Mental Status: mental status grossly normal Affect: normal affect Objective Data Vital Signs Vital Signs: Vital Signs - 24 hr 11/13/24 14:00 11/13/24 21:55 11/14/24 05:45 Temperature 98.4 F 98.7 F 99.4 F Pulse Rate 79 72 81 Respiratory Rate 16 16 14 Blood Pressure 130/76 157/72 H 116/64 Pulse Oximetry 100 97 98 Oxygen Delivery 11/14/24 08:00 Temperature Pulse Rate Respiratory Rate Blood Pressure Pulse Oximetry Oxygen Delivery Room Air Intake/Output Intake/Output: Intake & Output 11/11/24 11/12/24 11/13/24 11/14/24 23:59 23:59 23:59 23:59 Intake Total 4730 1890 Output Total 4250 2650 Balance 480 -760 Meds/Results Medications: Active Medications Generic Name Dose Route Start Last Admin Trade Name Freq PRN Reason Stop Dose Admin Acetaminophen 650 mg 11/13/24 04:57 Acetaminophen 325 Mg Tablet PO Q4H PRN Mild Pain (1-3) or Fever Aspirin 81 mg 11/13/24 08:00 11/13/24 09:08 Aspirin 81 Mg Enteric Tablet PO 81 mg DAILY@0800 JAYDEN Administration Dextrose 12.5 gm 11/13/24 04:58 Dextrose 50% 25 Gm/50 Ml Syringe IV PUSH PRN PRN Hypoglycemia Protocol Gabapentin 300 mg 11/13/24 09:00 11/14/24 08:16 Gabapentin 300 Mg Capsule PO 300 mg DAILY JAYDEN Administration Glucagon 1 mg 11/13/24 04:58 Glucagon For Inj 1 Mg Vial IM PRN PRN Hypoglycemia Protocol Glucose 15 gm 11/13/24 04:58 Glucose Oral Gel 15 Gm Of Glucse In 37.5 Gm Tube PO PRN PRN Hypoglycemia Protocol Hydralazine HCl 25 mg 11/13/24 09:00 11/14/24 08:17 Hydralazine Hcl 25 Mg Tablet PO 25 mg DAILY JAYDEN Administration Lactated Ringer's 1,000 mls @ 125 mls/hr 11/13/24 05:00 11/14/24 08:23 Lr - Lactated Ringers Iv IV CONT 125 mls/hr .Q8H JAYDEN Administration Dextrose 1,000 mls @ 100 mls/hr 11/13/24 04:58 Dextrose 5% 1,000 Ml IVPB PRN PRN Hypoglycemia Protocol Cefepime HCl 1 gm in 50 mls @ 100 mls/hr 11/13/24 09:00 11/14/24 08:17 Maxipime 1 Gm/Ns 50 Ml IVPB 100 mls/hr DAILY JAYDEN Administration Insulin Aspart 3 - 6 units 11/13/24 08:00 11/14/24 08:17 Insulin Aspart (*Bkc) 100 Units/Ml SUB-Q Not Given TIDWM JAYDEN Protocol Insulin Aspart 1 - 3 units 11/13/24 21:00 11/13/24 20:42 Insulin Aspart (*Bkc) 100 Units/Ml SUB-Q 3 units HS JAYDEN Administration Protocol Insulin Glargine 54 units 11/14/24 09:00 11/14/24 08:25 Insulin Glargine (*Bkc) 100 Units/Ml SUB-Q 54 units DAILY JAYDEN Administration Latanoprost 1 drop 11/13/24 09:00 11/14/24 08:24 Latanoprost 0.005% Op Soln 2.5 Ml Btl EACH EYE 1 drop DAILY JAYDEN Administration Losartan Potassium 100 mg 11/13/24 09:00 11/14/24 08:16 Losartan Potassium 100 Mg Tablet PO 100 mg DAILY JAYDEN Administration Meclizine HCl 25 mg 11/13/24 07:34 Meclizine Hcl 25 Mg Tablet PO BID PRN dizziness Metoprolol Tartrate 25 mg 11/13/24 09:00 11/14/24 08:17 Metoprolol Tartrate 25 Mg Tablet PO 25 mg Q12HR JAYDEN Administration Ondansetron HCl 4 mg 11/13/24 04:57 Ondansetron Inj 4 Mg/2 Ml Vial IV PUSH Q4H PRN Nausea Simvastatin 40 mg 11/13/24 09:00 11/14/24 08:16 Simvastatin 20 Mg Tablet PO 40 mg DAILY JAYDEN Administration Tamsulosin HCl 0.4 mg 11/13/24 21:00 11/13/24 20:36 Tamsulosin Hcl 0.4 Mg Capsule PO 0.4 mg HS JAYDEN Administration Timolol Maleate 1 drop 11/13/24 09:00 11/14/24 08:24 Timolol Maleate 0.5% Op Soln 5 Ml Bottle LEFT EYE 1 drop Q12HR JAYDEN Administration Radiology Results: ITS Impressions Abdomen/Pelvis CT 11/13/24 07:11 IMPRESSION: 1. Left lower lobe reticulonodular densities with largest nodule measuring 6 mm. These findings are most likely infectious/inflammatory, although neoplasm not excluded. Follow-up CT chest in 6 months recommended. 2: Moderate bilateral hydroureteronephrosis to the level of the UVJs, likely secondary to diffuse abnormal thickening of the bladder wall and enlargement of the prostate gland. No obstructing mass is seen. Cannot exclude underlying cystitis. Labs Labs: Laboratory Results - last 24 hr 11/13/24 11/13/24 11/13/24 11:18 16:33 20:16 WBC RBC Hgb Hct MCV MCH MCHC RDW Plt Count MPV Immature Gran % (Auto) Neut % (Auto) Lymph % (Auto) [place] % (Auto) Eos % (Auto) Baso % (Auto) Lymph # (Auto) [place] # (Auto) Eos # (Auto) Baso # (Auto) Abs Immat Gran (auto) Absolute Neuts (auto) Absolute Nucleated RBC Nucleated RBC % Sodium Potassium Chloride Carbon Dioxide Anion Gap BUN Creatinine Estim Creat Clear Calc Estimated GFR Glucose POC Capillary Glucose 140 H 263 H 381 H Calcium Total Bilirubin AST ALT Alkaline Phosphatase Total Protein Albumin 11/14/24 11/14/24 06:03 08:01 WBC 8.9 RBC 3.81 L Hgb 12.5 L Hct 37.9 L MCV 99.5 MCH 32.8 MCHC 33.0 RDW 13.1 Plt Count 130 L MPV 10.4 Immature Gran % (Auto) 0.2 Neut % (Auto) 75.8 H Lymph % (Auto) 11.4 L [place] % (Auto) 10.2 H Eos % (Auto) 2.2 Baso % (Auto) 0.2 Lymph # (Auto) 1.02 [place] # (Auto) 0.9 H Eos # (Auto) 0.2 Baso # (Auto) 0.0 Abs Immat Gran (auto) 0.02 Absolute Neuts (auto) 6.8 H Absolute Nucleated RBC 0.000 Nucleated RBC % 0.0 Sodium 136 L Potassium 4.0 Chloride 108 H Carbon Dioxide 23 Anion Gap 5 BUN 42 H Creatinine 2.15 H Estim Creat Clear Calc 29 Estimated GFR 30 L Glucose 184 H POC Capillary Glucose 180 H Calcium 8.1 L Total Bilirubin 0.4 AST 15 L ALT 15 Alkaline Phosphatase 94 Total Protein 5.0 L Albumin 2.8 L Quality VTE Prophylaxis VTE prophylaxis: mechanical ordered
[2024-11-14] MEDS: INSULIN ASPART (*BKC) 100 UNITS/ML SUB-Q ×3 (12:03→20:23)
[2024-11-14 12:13] LABS: Glucose Point of Care 266 mg/dl (65-105)
--- NOTE | 2024-11-14 13:57 | P.PNUR_ITS ---
Progress Note: A&P Assessment and Plan (1) Hydronephrosis: Code(s): N13.30 - Unspecified hydronephrosis Status: Acute Assessment and Plan: Will wait to see where his creatinine level stabilizes at. It is improving although slowly. Would like to hold off on stent placement as long as his creatinine continues to improve. If levels out then will recheck renal ultrasound if to evaluate if there is any resolution of the hydronephrosis. (2) Hematuria: Qualifiers: Hematuria type: gross Qualified Code(s): R31.0 - Gross hematuria Code(s): R31.9 - Hematuria, unspecified Status: Acute Assessment and Plan: Will have them irrigate Park. May simply be to to decompression of bladder as he was in significant retention. Subjective Subjective Date/Time Seen: 11/14/24 13:57 Principal diagnosis: Urinary retention and urethral stricture Interval history: Patient with renal insufficiency possibly secondary to obstructive uropathy from a stricture. He may also have somewhat of an atonic bladder. His scan revealed significant bilateral hydroureter. His creatinine level is improving although at a slower rate. It is down to 2.15 today. His urine is somewhat red in jak ure. Will have them irrigate his [place]. Review of Systems Review of Systems: All systems reviewed & are unremarkable except as noted in HPI and below Exam Const: General: cooperative and comfortable Resp: Effort & Inspection: normal respiratory effort Cardio: Rate: regular rate Rhythm: regular rhythm Urinary Catheter: Urinary Catheter: patent and draining and urine red Objective Data Vital Signs Vital Signs: Vital Signs - 24 hr 11/13/24 14:00 11/13/24 21:55 11/14/24 05:45 Temperature 36.9 C 37.1 C 37.4 C Pulse Rate 79 72 81 Respiratory Rate 16 16 14 Blood Pressure 130/76 157/72 H 116/64 Pulse Oximetry 100 97 98 Oxygen Delivery 11/14/24 08:00 Temperature Pulse Rate Respiratory Rate Blood Pressure Pulse Oximetry Oxygen Delivery Room Air Intake/Output Intake/Output: Intake & Output 11/11/24 11/12/24 11/13/24 11/14/24 23:59 23:59 23:59 23:59 Intake Total 4730 1890 Output Total 4250 2650 Balance 480 -760 Meds/Results Medications: Active Medications Generic Name Dose Route Start Last Admin Trade Name Freq PRN Reason Stop Dose Admin Acetaminophen 650 mg 11/13/24 04:57 Acetaminophen 325 Mg Tablet PO Q4H PRN Mild Pain (1-3) or Fever Aspirin 81 mg 11/13/24 08:00 11/13/24 09:08 Aspirin 81 Mg Enteric Tablet PO 81 mg DAILY@0800 JAYDEN Administration Dextrose 12.5 gm 11/13/24 04:58 Dextrose 50% 25 Gm/50 Ml Syringe IV PUSH PRN PRN Hypoglycemia Protocol Gabapentin 300 mg 11/13/24 09:00 11/14/24 08:16 Gabapentin 300 Mg Capsule PO 300 mg DAILY JAYDEN Administration Glucagon 1 mg 11/13/24 04:58 Glucagon For Inj 1 Mg Vial IM PRN PRN Hypoglycemia Protocol Glucose 15 gm 11/13/24 04:58 Glucose Oral Gel 15 Gm Of Glucse In 37.5 Gm Tube PO PRN PRN Hypoglycemia Protocol Hydralazine HCl 25 mg 11/13/24 09:00 11/14/24 08:17 Hydralazine Hcl 25 Mg Tablet PO 25 mg DAILY JAYDEN Administration Lactated Ringer's 1,000 mls @ 125 mls/hr 11/13/24 05:00 11/14/24 12:08 Lr - Lactated Ringers Iv IV CONT Not Given .Q8H JAYDEN Dextrose 1,000 mls @ 100 mls/hr 11/13/24 04:58 Dextrose 5% 1,000 Ml IVPB PRN PRN Hypoglycemia Protocol Cefepime HCl 1 gm in 50 mls @ 100 mls/hr 11/13/24 09:00 11/14/24 08:17 Maxipime 1 Gm/Ns 50 Ml IVPB 100 mls/hr DAILY JAYDEN Administration Insulin Aspart 3 - 6 units 11/13/24 08:00 11/14/24 12:03 Insulin Aspart (*Bkc) 100 Units/Ml SUB-Q 4 units TIDWM JAYDEN Administration Protocol Insulin Aspart 1 - 3 units 11/13/24 21:00 11/13/24 20:42 Insulin Aspart (*Bkc) 100 Units/Ml SUB-Q 3 units HS JAYDEN Administration Protocol Insulin Glargine 54 units 11/14/24 09:00 11/14/24 08:25 Insulin Glargine (*Bkc) 100 Units/Ml SUB-Q 54 units DAILY JAYDEN Administration Latanoprost 1 drop 11/13/24 09:00 11/14/24 08:24 Latanoprost 0.005% Op Soln 2.5 Ml Btl EACH EYE 1 drop DAILY JAYDEN Administration Losartan Potassium 100 mg 11/13/24 09:00 11/14/24 08:16 Losartan Potassium 100 Mg Tablet PO 100 mg DAILY JAYDEN Administration Meclizine HCl 25 mg 11/13/24 07:34 Meclizine Hcl 25 Mg Tablet PO BID PRN dizziness Metoprolol Tartrate 25 mg 11/13/24 09:00 11/14/24 08:17 Metoprolol Tartrate 25 Mg Tablet PO 25 mg Q12HR JAYDEN Administration Ondansetron HCl 4 mg 11/13/24 04:57 Ondansetron Inj 4 Mg/2 Ml Vial IV PUSH Q4H PRN Nausea Simvastatin 40 mg 11/13/24 09:00 11/14/24 08:16 Simvastatin 20 Mg Tablet PO 40 mg DAILY JAYDEN Administration Tamsulosin HCl 0.4 mg 11/13/24 21:00 11/13/24 20:36 Tamsulosin Hcl 0.4 Mg Capsule PO 0.4 mg HS JAYDEN Administration Timolol Maleate 1 drop 11/13/24 09:00 11/14/24 08:24 Timolol Maleate 0.5% Op Soln 5 Ml Bottle LEFT EYE 1 drop Q12HR JAYDEN Administration Radiology Results: ITS Impressions Abdomen/Pelvis CT 11/13/24 07:11 IMPRESSION: 1. Left lower lobe reticulonodular densities with largest nodule measuring 6 mm. These findings are most likely infectious/inflammatory, although neoplasm not excluded. Follow-up CT chest in 6 months recommended. 2: Moderate bilateral hydroureteronephrosis to the level of the UVJs, likely secondary to diffuse abnormal thickening of the bladder wall and enlargement of the prostate gland. No obstructing mass is seen. Cannot exclude underlying cystitis. Labs Labs: Laboratory Results - last 24 hr 11/13/24 11/13/24 11/14/24 16:33 20:16 06:03 WBC 8.9 RBC 3.81 L Hgb 12.5 L Hct 37.9 L MCV 99.5 MCH 32.8 MCHC 33.0 RDW 13.1 Plt Count 130 L MPV 10.4 Immature Gran % (Auto) 0.2 Neut % (Auto) 75.8 H Lymph % (Auto) 11.4 L [place] % (Auto) 10.2 H Eos % (Auto) 2.2 Baso % (Auto) 0.2 Lymph # (Auto) 1.02 [place] # (Auto) 0.9 H Eos # (Auto) 0.2 Baso # (Auto) 0.0 Abs Immat Gran (auto) 0.02 Absolute Neuts (auto) 6.8 H Absolute Nucleated RBC 0.000 Nucleated RBC % 0.0 Sodium 136 L Potassium 4.0 Chloride 108 H Carbon Dioxide 23 Anion Gap 5 BUN 42 H Creatinine 2.15 H Estim Creat Clear Calc 29 Estimated GFR 30 L Glucose 184 H POC Capillary Glucose 263 H 381 H Calcium 8.1 L Total Bilirubin 0.4 AST 15 L ALT 15 Alkaline Phosphatase 94 Total Protein 5.0 L Albumin 2.8 L 11/14/24 11/14/24 08:01 11:58 WBC RBC Hgb Hct MCV MCH MCHC RDW Plt Count MPV Immature Gran % (Auto) Neut % (Auto) Lymph % (Auto) [place] % (Auto) Eos % (Auto) Baso % (Auto) Lymph # (Auto) [place] # (Auto) Eos # (Auto) Baso # (Auto) Abs Immat Gran (auto) Absolute Neuts (auto) Absolute Nucleated RBC Nucleated RBC % Sodium Potassium Chloride Carbon Dioxide Anion Gap BUN Creatinine Estim Creat Clear Calc Estimated GFR Glucose POC Capillary Glucose 180 H 266 H Calcium Total Bilirubin AST ALT Alkaline Phosphatase Total Protein Albumin
[2024-11-14 14:00] VITALS: BP 127/57; PULSE 86; RESP 18; TEMP 36.8; O2SAT 95
[2024-11-14 17:05] LABS: Glucose Point of Care 253 mg/dl (65-105)
[2024-11-14] MEDS: TAMSULOSIN HCL 0.4 MG CAPSULE PO (20:23)
[2024-11-14 20:31] LABS: Glucose Point of Care 303 mg/dl (65-105)
[2024-11-14 22:00] VITALS: BP 154/70; PULSE 81; RESP 16; TEMP 36.7; O2SAT 97
[2024-11-15 05:07] VITALS: BP 124/66; PULSE 84; RESP 16; TEMP 36.6; O2SAT 96
[2024-11-15 06:42] LABS: Basophils Percent Auto 0.5 % (0.2-1.2); Eosinophils Absolute Auto 0.4 K/mm3 (0-0.3); Eosinophils Percent Auto 4.8 % (0-4.4); Hematocrit 37.5 % (42.0-52.0); Hemoglobin 12.2 g/dL (14.0-18.0); Immature Granulocyte Absolute 0.03 K/mm3 (0.00-0.031); Immature Granulocyte Percent A 0.4 % (0-0.5); Lymphocytes Absolute Auto 1.66 K/mm3 (0.9-3.2); Lymphocytes Percent Auto 19.5 % (18.3-44.2); Mean Corpuscular HGB Conc 32.5 g/dl (32-36); Mean Corpuscular Volume 98.4 fl (80-100); Monocytes Absolute Auto 0.9 K/mm3 (0.1-0.6); Monocytes Percent Auto 10.4 % (2.6-8.5); Neutrophils Absolute Auto 5.5 K/mm3 (1.3-6.7); Neutrophils Percent Auto 64.4 % (45.5-73.1); Platelet Count Result 135 k/mm3 (150-375); Red Blood Count 3.81 M/mm3 (4.6-6.20); White Blood Count 8.5 K/mm3 (4.5-10.0)
[2024-11-15 07:26] LABS: Alanine Aminotransferase 16 U/L (6-50); Albumin Level 2.6 g/dL (3.5-5.1); Alkaline Phosphatase 83 U/L (38-126); Anion Gap 4 mmol/L (4-12); Aspartate Amino Transferase 18 U/L (17-59); Bilirubin,Total 0.4 mg/dL (0.2-1.3); Blood Urea Nitrogen 36 mg/dL (9-20); Calcium 8.2 mg/dL (8.4-10.2); Carbon Dioxide 26 mmol/L (22-30); Chloride 108 mmol/L (98-107); Estimated CRCL calculation 33 ml/min; Estimated Glomerular Filt Rate 35; Glucose 115 mg/dL (65-110); Potassium 3.8 mmol/L (3.4-5.0); Sodium 138 mmol/L (137-145)
[2024-11-15 07:51] LABS: Glucose Point of Care 116 mg/dl (65-105)
[2024-11-15] MEDS: TIMOLOL MALEATE 0.5% OP SOLN 5 ML BOTTLE 1 DROP LEFT EYE ×2 (08:45→20:18)
[2024-11-15] MEDS: INSULIN GLARGINE (*BKC) 100 UNITS/ML 54 UNITS SUB-Q (08:45)
[2024-11-15 08:46] VITALS: PULSE 84
[2024-11-15] MEDS: SIMVASTATIN 20 MG TABLET 40 MG PO (08:46)
[2024-11-15] MEDS: LOSARTAN POTASSIUM 100 MG TABLET PO (08:46)
[2024-11-15] MEDS: METOPROLOL TARTRATE 25 MG TABLET PO ×2 (08:46→20:16)
[2024-11-15] MEDS: GABAPENTIN 300 MG CAPSULE PO (08:47)
[2024-11-15] MEDS: LACTATED RINGERS 1,000 ML 125 ML IV CONT (08:48)
[2024-11-15] MEDS: LATANOPROST 0.005% OP SOLN 2.5 ML BTL 1 DROP EACH EYE (08:48)
--- NOTE | 2024-11-15 10:37 | P.PNIM_ITS ---
Progress Note: A&P Assessment and Plan (1) MAXWELL (acute kidney injury): Code(s): N17.9 - Acute kidney failure, unspecified Status: Acute Assessment and Plan: * Likely secondary to urethral stricture and underlying bladder outlet obstruction. * Bilateral hydro noted on CT and MOISES * Expect renal function to improve with castle in place. * Creatinine improving from 2.66>2.48>2.15>1.90. * Monitor labs. * Urology following. * LR @125 ml/hr. (2) Hematuria: Qualifiers: Hematuria type: gross Qualified Code(s): R31.0 - Gross hematuria Code(s): R31.9 - Hematuria, unspecified Status: Acute Assessment and Plan: * Likely 2/2 UTI, hemorrhagic cystitis. * Patient was asymptomatic when retaining >2L urine prior to 11/12/24 Castle placement * Castle draining pink urine today, no clots * OK to hold home ASA x 48hrs * Urology following, ordered for castle to be irrigated. * Monitor output. (3) Urinary tract infection in male: Code(s): N39.0 - Urinary tract infection, site not specified Status: Acute Assessment and Plan: * Urine red, turbid, 3+ protein, 2+ glucose, 3+ blood, positive nitrate, 3+ bilirubin, 2 + leukocytes, RBC >100, WBC 21-50. * Likely 2/2 severe, chronic urinary retention * Urine culture negative * Continue IV cefepime (4) Enlarged prostate: Code(s): N40.0 - Benign prostatic hyperplasia without lower urinary tract symptoms Status: Acute Assessment and Plan: * Continue home tamsulosin * Patient has a history of medication noncompliance with tamsulosin, finasteride, desmopressin (5) Hydronephrosis: Code(s): N13.30 - Unspecified hydronephrosis Status: Acute Assessment and Plan: * Likely 2/2 severe retention, bladder distention (6) Urethral stricture: Code(s): N35.919 - Unspecified urethral stricture, male, unspecified site Status: Inactive Assessment and Plan: * s/p urethral dilation 11/12/24 (7) Type 2 diabetes mellitus with diabetic neuropathy, unspecified: Code(s): E11.40 - Type 2 diabetes mellitus with diabetic neuropathy, unspecified Status: Acute Assessment and Plan: * Home Glargine 54 units subq daily, SSI, and hypoglycemic protocol. * HgbA1C 8.5%. (8) Essential (primary) hypertension: Code(s): I10 - Essential (primary) hypertension Status: Acute Assessment and Plan: * Blood pressure 124/66. * Continue Hydralazine 25 mg PO daily, Metoprolol 25 mg PO q 12, and Losartan 100 mg PO daily. (9) Mixed hyperlipidemia: Code(s): E78.2 - Mixed hyperlipidemia Status: Acute Assessment and Plan: * Continue Simvastatin 40 mg PO daily. Subjective Date/time seen: 11/15/24 10:37 Interval history: Patient reports feeling better today and that he got sleep last night. Brother in law at bedside. Patient denies abominal pain, burning with urine draining, nausea, or vomiting. Review of Systems Review of Systems: All systems reviewed & are unremarkable except as noted in HPI and below Exam Const: General: comfortable and no acute distress Eyes: Sclera: sclerae normal Resp: Effort & Inspection: normal respiratory effort Auscultation: clear to auscultation bilaterally Cardio: Rate: regular rate Rhythm: regular rhythm GI: GI Palp: Yes Soft to palpation Auscultation: normal bowel sounds Urinary Catheter: Urinary Catheter: patent and draining and urine red (stock turner in color) Skin: Other: Two abrasions to right terrell healing. No drainage noted. Neuro: Speech: normal speech Extrem: General: no pedal edema Psych: Mental Status: mental status grossly normal Affect: normal affect Objective Data Vital Signs Vital Signs: Vital Signs - 24 hr 11/14/24 14:00 11/14/24 22:00 11/15/24 05:07 Temperature 98.2 F 98.0 F 97.9 F Pulse Rate 86 81 84 Respiratory Rate 18 16 16 Blood Pressure 127/57 L 154/70 H 124/66 Pulse Oximetry 95 97 96 11/15/24 08:46 Temperature Pulse Rate 84 Respiratory Rate Blood Pressure Pulse Oximetry Intake/Output Intake/Output: Intake & Output 11/12/24 11/13/24 11/14/24 11/15/24 23:59 23:59 23:59 23:59 Intake Total 4730 3370 1989 Output Total 3330 1300 200 Balance 480 -2180 1790 Meds/Results Medications: Active Medications Generic Name Dose Route Start Last Admin Trade Name Freq PRN Reason Stop Dose Admin Acetaminophen 650 mg 11/13/24 04:57 Acetaminophen 325 Mg Tablet PO Q4H PRN Mild Pain (1-3) or Fever Aspirin 81 mg 11/13/24 08:00 11/13/24 09:08 Aspirin 81 Mg Enteric Tablet PO 81 mg DAILY@0800 JAYDEN Administration Dextrose 12.5 gm 11/13/24 04:58 Dextrose 50% 25 Gm/50 Ml Syringe IV PUSH PRN PRN Hypoglycemia Protocol Gabapentin 300 mg 11/13/24 09:00 11/15/24 08:47 Gabapentin 300 Mg Capsule PO 300 mg DAILY JAYDEN Administration Glucagon 1 mg 11/13/24 04:58 Glucagon For Inj 1 Mg Vial IM PRN PRN Hypoglycemia Protocol Glucose 15 gm 11/13/24 04:58 Glucose Oral Gel 15 Gm Of Glucse In 37.5 Gm Tube PO PRN PRN Hypoglycemia Protocol Hydralazine HCl 25 mg 11/13/24 09:00 11/14/24 08:17 Hydralazine Hcl 25 Mg Tablet PO 25 mg DAILY JAYDEN Administration Lactated Ringer's 1,000 mls @ 125 mls/hr 11/13/24 05:00 11/15/24 08:48 Lr - Lactated Ringers Iv IV CONT 125 mls/hr .Q8H JAYDEN Administration Dextrose 1,000 mls @ 100 mls/hr 11/13/24 04:58 Dextrose 5% 1,000 Ml IVPB PRN PRN Hypoglycemia Protocol Cefepime HCl 1 gm in 50 mls @ 100 mls/hr 11/13/24 09:00 11/14/24 08:17 Maxipime 1 Gm/Ns 50 Ml IVPB 100 mls/hr DAILY JAYDEN Administration Insulin Aspart 3 - 6 units 11/13/24 08:00 11/15/24 08:48 Insulin Aspart (*Bkc) 100 Units/Ml SUB-Q Not Given TIDWM JAYDEN Protocol Insulin Aspart 1 - 3 units 11/13/24 21:00 11/14/24 20:23 Insulin Aspart (*Bkc) 100 Units/Ml SUB-Q 2 units HS JAYDEN Administration Protocol Insulin Glargine 54 units 11/14/24 09:00 11/15/24 08:45 Insulin Glargine (*Bkc) 100 Units/Ml SUB-Q 54 units DAILY JAYDEN Administration Latanoprost 1 drop 11/13/24 09:00 11/15/24 08:48 Latanoprost 0.005% Op Soln 2.5 Ml Btl EACH EYE 1 drop DAILY JAYDEN Administration Losartan Potassium 100 mg 11/13/24 09:00 11/15/24 08:46 Losartan Potassium 100 Mg Tablet PO 100 mg DAILY JAYDEN Administration Meclizine HCl 25 mg 11/13/24 07:34 Meclizine Hcl 25 Mg Tablet PO BID PRN dizziness Metoprolol Tartrate 25 mg 11/13/24 09:00 11/15/24 08:46 Metoprolol Tartrate 25 Mg Tablet PO 25 mg Q12HR JAYDEN Administration Ondansetron HCl 4 mg 11/13/24 04:57 Ondansetron Inj 4 Mg/2 Ml Vial IV PUSH Q4H PRN Nausea Simvastatin 40 mg 11/13/24 09:00 11/15/24 08:46 Simvastatin 20 Mg Tablet PO 40 mg DAILY JAYDEN Administration Tamsulosin HCl 0.4 mg 11/13/24 21:00 11/14/24 20:23 Tamsulosin Hcl 0.4 Mg Capsule PO 0.4 mg HS JAYDEN Administration Timolol Maleate 1 drop 11/13/24 09:00 11/14/24 20:31 Timolol Maleate 0.5% Op Soln 5 Ml Bottle LEFT EYE 1 drop Q12HR JAYDEN Administration Radiology Results: ITS Impressions Abdomen/Pelvis CT 11/13/24 07:11 IMPRESSION: 1. Left lower lobe reticulonodular densities with largest nodule measuring 6 mm. These findings are most likely infectious/inflammatory, although neoplasm not excluded. Follow-up CT chest in 6 months recommended. 2: Moderate bilateral hydroureteronephrosis to the level of the UVJs, likely secondary to diffuse abnormal thickening of the bladder wall and enlargement of the prostate gland. No obstructing mass is seen. Cannot exclude underlying cystitis. Labs Labs: Laboratory Results - last 24 hr 11/14/24 11/14/24 11/14/24 11:58 16:58 20:00 WBC RBC Hgb Hct MCV MCH MCHC RDW Plt Count MPV Immature Gran % (Auto) Neut % (Auto) Lymph % (Auto) [place] % (Auto) Eos % (Auto) Baso % (Auto) Lymph # (Auto) [place] # (Auto) Eos # (Auto) Baso # (Auto) Abs Immat Gran (auto) Absolute Neuts (auto) Absolute Nucleated RBC Nucleated RBC % % Immature Plt Fraction Sodium Potassium Chloride Carbon Dioxide Anion Gap BUN Creatinine Estim Creat Clear Calc Estimated GFR Glucose POC Capillary Glucose 266 H 253 H 303 H Calcium Total Bilirubin AST ALT Alkaline Phosphatase Total Protein Albumin 11/15/24 11/15/24 06:23 07:46 WBC 8.5 RBC 3.81 L Hgb 12.2 L Hct 37.5 L MCV 98.4 MCH 32.0 MCHC 32.5 RDW 13.0 Plt Count 135 L MPV 10.0 Immature Gran % (Auto) 0.4 Neut % (Auto) 64.4 Lymph % (Auto) 19.5 [place] % (Auto) 10.4 H Eos % (Auto) 4.8 H Baso % (Auto) 0.5 Lymph # (Auto) 1.66 [place] # (Auto) 0.9 H Eos # (Auto) 0.4 H Baso # (Auto) 0.0 Abs Immat Gran (auto) 0.03 Absolute Neuts (auto) 5.5 Absolute Nucleated RBC 0.000 Nucleated RBC % 0.0 % Immature Plt Fraction 2.0 Sodium 138 Potassium 3.8 Chloride 108 H Carbon Dioxide 26 Anion Gap 4 BUN 36 H Creatinine 1.90 H Estim Creat Clear Calc 33 Estimated GFR 35 L Glucose 115 H POC Capillary Glucose 116 H Calcium 8.2 L Total Bilirubin 0.4 AST 18 ALT 16 Alkaline Phosphatase 83 Total Protein 5.0 L Albumin 2.6 L Quality VTE Prophylaxis VTE prophylaxis: mechanical ordered
[2024-11-15 11:49] LABS: Glucose Point of Care 228 mg/dl (65-105)
[2024-11-15] MEDS: INSULIN ASPART (*BKC) 100 UNITS/ML SUB-Q ×3 (12:40→22:35)
[2024-11-15] MEDS: CEFEPIME 1 GM/NS 50 ML 1 GM/50 ML BAG IVPB (12:42)
[2024-11-15] MEDS: polyethylene glycoL 3350 17 GM POWD.PACK PO (12:43)
[2024-11-15 14:00] VITALS: BP 127/71; PULSE 76; RESP 16; TEMP 36.7; O2SAT 96
[2024-11-15 17:03] LABS: Glucose Point of Care 297 mg/dl (65-105)
[2024-11-15] MEDS: TAMSULOSIN HCL 0.4 MG CAPSULE PO (20:15)
[2024-11-15 20:16] VITALS: PULSE 77
[2024-11-15] MEDS: MELATONIN 3 MG TABLET PO (20:55)
[2024-11-15 21:47] LABS: Glucose Point of Care 297 mg/dl (65-105)
[2024-11-15 22:00] VITALS: BP 165/77; PULSE 73; RESP 18; TEMP 36.6; O2SAT 97
[2024-11-15] MEDS: NACL 0.9% IRRIGATION POUR BOTTLE 500 ML (23:37)
[2024-11-16 06:00] VITALS: BP 114/89; PULSE 81; RESP 18; TEMP 36.7; O2SAT 99
[2024-11-16] MEDS: LACTATED RINGERS 1,000 ML 125 ML IV CONT ×2 (06:24→12:30)
[2024-11-16 06:53] LABS: Basophils Percent Auto 0.4 % (0.2-1.2); Eosinophils Absolute Auto 0.4 K/mm3 (0-0.3); Eosinophils Percent Auto 5.3 % (0-4.4); Hematocrit 38.1 % (42.0-52.0); Hemoglobin 12.2 g/dL (14.0-18.0); Immature Granulocyte Absolute 0.04 K/mm3 (0.00-0.031); Immature Granulocyte Percent A 0.5 % (0-0.5); Lymphocytes Absolute Auto 1.77 K/mm3 (0.9-3.2); Lymphocytes Percent Auto 21.6 % (18.3-44.2); Mean Corpuscular Hemoglobin 31.8 pg (26-34); Mean Corpuscular Volume 99.2 fl (80-100); Mean Platelet Volume 10.2 fl (7.4-10.4); Monocytes Absolute Auto 0.8 K/mm3 (0.1-0.6); Monocytes Percent Auto 9.8 % (2.6-8.5); Neutrophils Absolute Auto 5.1 K/mm3 (1.3-6.7); Neutrophils Percent Auto 62.4 % (45.5-73.1); Platelet Count Result 144 k/mm3 (150-375); Red Blood Count 3.84 M/mm3 (4.6-6.20); Red Cell Distribution Width 12.7 % (11.5-14.5); White Blood Count 8.2 K/mm3 (4.5-10.0)
[2024-11-16 07:09] LABS: Alanine Aminotransferase 28 U/L (6-50); Albumin Level 2.7 g/dL (3.5-5.1); Alkaline Phosphatase 81 U/L (38-126); Anion Gap 3 mmol/L (4-12); Aspartate Amino Transferase 24 U/L (17-59); Bilirubin,Total 0.5 mg/dL (0.2-1.3); Blood Urea Nitrogen 35 mg/dL (9-20); Carbon Dioxide 29 mmol/L (22-30); Chloride 104 mmol/L (98-107); Estimated CRCL calculation 37 ml/min; Estimated Glomerular Filt Rate 41; Glucose 83 mg/dL (65-110); Potassium 3.7 mmol/L (3.4-5.0); Sodium 136 mmol/L (137-145)
[2024-11-16 08:03] LABS: Glucose Point of Care 98 mg/dl (65-105)
[2024-11-16] MEDS: CEFEPIME 1 GM/NS 50 ML 1 GM/50 ML BAG IVPB (08:30)
[2024-11-16] MEDS: SIMVASTATIN 20 MG TABLET 40 MG PO (08:31)
[2024-11-16] MEDS: GABAPENTIN 300 MG CAPSULE PO (08:31)
[2024-11-16] MEDS: polyethylene glycoL 3350 17 GM POWD.PACK PO (08:31)
[2024-11-16 08:32] VITALS: PULSE 80
[2024-11-16] MEDS: TIMOLOL MALEATE 0.5% OP SOLN 5 ML BOTTLE 1 DROP LEFT EYE ×2 (08:32→21:08)
[2024-11-16] MEDS: LATANOPROST 0.005% OP SOLN 2.5 ML BTL 1 DROP EACH EYE (08:32)
[2024-11-16] MEDS: LOSARTAN POTASSIUM 100 MG TABLET PO (08:32)
[2024-11-16] MEDS: METOPROLOL TARTRATE 25 MG TABLET PO ×2 (08:32→21:07)
[2024-11-16] MEDS: INSULIN GLARGINE (*BKC) 100 UNITS/ML 54 UNITS SUB-Q (08:39)
[2024-11-16 09:03] VITALS: O2SAT 98
--- NOTE | 2024-11-16 10:36 | P.PNIM_ITS ---
Progress Note: A&P Assessment and Plan (1) MAXWELL (acute kidney injury): Code(s): N17.9 - Acute kidney failure, unspecified Status: Acute Assessment and Plan: * Likely secondary to urethral stricture and underlying bladder outlet obstruction. * Bilateral hydro noted on CT and MOISES * Expect renal function to improve with castle in place. * Creatinine improving from 2.66>2.48>2.15>1.90>1.67. * Monitor labs. * Urology following, appreciate recommendations. * 2/3 repeat Renal ultrasound ordered, awaiting test completion. * Decrease LR @75 ml/hr. (2) Hematuria: Qualifiers: Hematuria type: gross Qualified Code(s): R31.0 - Gross hematuria Code(s): R31.9 - Hematuria, unspecified Status: Acute Assessment and Plan: * Likely 2/2 UTI, hemorrhagic cystitis. * Patient was asymptomatic when retaining >2L urine prior to 11/12/24 Castle placement * Castle draining pink urine today, no clots * Home ASA on hold. * Urology following, ordered for castle to be irrigated. * Monitor output. (3) Urinary tract infection in male: Code(s): N39.0 - Urinary tract infection, site not specified Status: Acute Assessment and Plan: * Urine red, turbid, 3+ protein, 2+ glucose, 3+ blood, positive nitrate, 3+ bilirubin, 2 + leukocytes, RBC >100, WBC 21-50. * Likely 2/2 severe, chronic urinary retention * Urine culture negative * 11/16/24 stopped Cefepime. * Switched to Augment 875-125 mg 1 tab q12. (4) Enlarged prostate: Code(s): N40.0 - Benign prostatic hyperplasia without lower urinary tract symptoms Status: Acute Assessment and Plan: * Continue home tamsulosin * Patient has a history of medication noncompliance with tamsulosin, finasteride, desmopressin (5) Hydronephrosis: Code(s): N13.30 - Unspecified hydronephrosis Status: Acute Assessment and Plan: * Likely 2/2 severe retention, bladder distention (6) Urethral stricture: Code(s): N35.919 - Unspecified urethral stricture, male, unspecified site Status: Inactive Assessment and Plan: * s/p urethral dilation 11/12/24 (7) Type 2 diabetes mellitus with diabetic neuropathy, unspecified: Code(s): E11.40 - Type 2 diabetes mellitus with diabetic neuropathy, unspecified Status: Acute Assessment and Plan: * Home Glargine 54 units subq daily, SSI, and hypoglycemic protocol. * HgbA1C 8.5%. (8) Essential (primary) hypertension: Code(s): I10 - Essential (primary) hypertension Status: Acute Assessment and Plan: * Blood pressure 114/89. * Continue Hydralazine 25 mg PO daily, Metoprolol 25 mg PO q 12, and Losartan 100 mg PO daily. (9) Mixed hyperlipidemia: Code(s): E78.2 - Mixed hyperlipidemia Status: Acute Assessment and Plan: * Continue Simvastatin 40 mg PO daily. Subjective Date/time seen: 11/16/24 10:36 Interval history: Patient reports feeling a little better today. Patient reports that he is eating and drinking well. Brother in law at bedside. Patient denies abdominal pain, burning with urine draining, nausea, or vomiting. Review of Systems Review of Systems: All systems reviewed & are unremarkable except as noted in HPI and below Exam Const: General: comfortable and no acute distress Resp: Effort & Inspection: normal respiratory effort Auscultation: clear to auscultation bilaterally Cardio: Rate: regular rate Rhythm: regular rhythm GI: GI Palp: Yes Soft to palpation Auscultation: normal bowel sounds Urinary Catheter: Urinary Catheter: patent and draining and urine red Skin: Other: Two abrasions to right terrell healing. No drainage noted. Neuro: Speech: normal speech Extrem: General: no pedal edema Psych: Affect: normal affect Objective Data Vital Signs Vital Signs: Vital Signs - 24 hr 11/15/24 14:00 11/15/24 20:00 11/15/24 20:16 Temperature 98.0 F Pulse Rate 76 77 Respiratory Rate 16 Blood Pressure 127/71 Pulse Oximetry 96 Oxygen Delivery Room Air 11/15/24 22:00 11/16/24 06:00 11/16/24 08:32 Temperature 97.9 F 98.0 F Pulse Rate 73 81 80 Respiratory Rate 18 18 Blood Pressure 165/77 H 114/89 Pulse Oximetry 97 99 Oxygen Delivery 11/16/24 09:03 Temperature Pulse Rate Respiratory Rate Blood Pressure Pulse Oximetry 98 Oxygen Delivery Room Air Intake/Output Intake/Output: Intake & Output 11/13/24 11/14/24 11/15/24 11/16/24 23:59 23:59 23:59 23:59 Intake Total 4730 3420 5020 1240 Output Total 4250 5550 2400 3000 Balance 480 -2130 2620 -1760 Meds/Results Medications: Active Medications Generic Name Dose Route Start Last Admin Trade Name Freq PRN Reason Stop Dose Admin Acetaminophen 650 mg 11/13/24 04:57 Acetaminophen 325 Mg Tablet PO Q4H PRN Mild Pain (1-3) or Fever Aspirin 81 mg 11/13/24 08:00 11/13/24 09:08 Aspirin 81 Mg Enteric Tablet PO 81 mg DAILY@0800 JAYDEN Administration Dextrose 12.5 gm 11/13/24 04:58 Dextrose 50% 25 Gm/50 Ml Syringe IV PUSH PRN PRN Hypoglycemia Protocol Gabapentin 300 mg 11/13/24 09:00 11/16/24 08:31 Gabapentin 300 Mg Capsule PO 300 mg DAILY JAYDEN Administration Glucagon 1 mg 11/13/24 04:58 Glucagon For Inj 1 Mg Vial IM PRN PRN Hypoglycemia Protocol Glucose 15 gm 11/13/24 04:58 Glucose Oral Gel 15 Gm Of Glucse In 37.5 Gm Tube PO PRN PRN Hypoglycemia Protocol Hydralazine HCl 25 mg 11/13/24 09:00 11/16/24 08:32 Hydralazine Hcl 25 Mg Tablet PO Not Given DAILY JAYDEN Lactated Ringer's 1,000 mls @ 125 mls/hr 11/13/24 05:00 11/16/24 06:24 Lr - Lactated Ringers Iv IV CONT 125 mls/hr .Q8H JAYDEN Administration Dextrose 1,000 mls @ 100 mls/hr 11/13/24 04:58 Dextrose 5% 1,000 Ml IVPB PRN PRN Hypoglycemia Protocol Cefepime HCl 1 gm in 50 mls @ 100 mls/hr 11/13/24 09:00 11/16/24 08:30 Maxipime 1 Gm/Ns 50 Ml IVPB 100 mls/hr DAILY JAYDEN Administration Insulin Aspart 3 - 6 units 11/13/24 08:00 11/15/24 17:34 Insulin Aspart (*Bkc) 100 Units/Ml SUB-Q 4 units TIDWM JAYDEN Administration Protocol Insulin Aspart 1 - 3 units 11/13/24 21:00 11/15/24 22:35 Insulin Aspart (*Bkc) 100 Units/Ml SUB-Q 2 units HS JAYDEN Administration Protocol Insulin Glargine 54 units 11/14/24 09:00 11/16/24 08:39 Insulin Glargine (*Bkc) 100 Units/Ml SUB-Q 54 units DAILY JAYDEN Administration Latanoprost 1 drop 11/13/24 09:00 11/16/24 08:32 Latanoprost 0.005% Op Soln 2.5 Ml Btl EACH EYE 1 drop DAILY JAYDEN Administration Losartan Potassium 100 mg 11/13/24 09:00 11/16/24 08:32 Losartan Potassium 100 Mg Tablet PO 100 mg DAILY JAYDEN Administration Meclizine HCl 25 mg 11/13/24 07:34 Meclizine Hcl 25 Mg Tablet PO BID PRN dizziness Melatonin 3 mg 11/15/24 21:00 11/15/24 20:55 Melatonin 3 Mg Tablet PO 3 mg HS JAYDEN Administration Metoprolol Tartrate 25 mg 11/13/24 09:00 11/16/24 08:32 Metoprolol Tartrate 25 Mg Tablet PO 25 mg Q12HR JAYDEN Administration Ondansetron HCl 4 mg 11/13/24 04:57 Ondansetron Inj 4 Mg/2 Ml Vial IV PUSH Q4H PRN Nausea Polyethylene Glycol 17 gm 11/15/24 10:40 11/16/24 08:31 Polyethylene Glycol 3350 17 Gm Powd.Pack PO 17 gm QAM JAYDEN Administration Simvastatin 40 mg 11/13/24 09:00 11/16/24 08:31 Simvastatin 20 Mg Tablet PO 40 mg DAILY JAYDEN Administration Tamsulosin HCl 0.4 mg 11/13/24 21:00 11/15/24 20:15 Tamsulosin Hcl 0.4 Mg Capsule PO 0.4 mg HS JAYDEN Administration Timolol Maleate 1 drop 11/13/24 09:00 11/16/24 08:32 Timolol Maleate 0.5% Op Soln 5 Ml Bottle LEFT EYE 1 drop Q12HR JAYDEN Administration Radiology Results: ITS Impressions Abdomen/Pelvis CT 11/13/24 07:11 IMPRESSION: 1. Left lower lobe reticulonodular densities with largest nodule measuring 6 mm. These findings are most likely infectious/inflammatory, although neoplasm not excluded. Follow-up CT chest in 6 months recommended. 2: Moderate bilateral hydroureteronephrosis to the level of the UVJs, likely secondary to diffuse abnormal thickening of the bladder wall and enlargement of the prostate gland. No obstructing mass is seen. Cannot exclude underlying cystitis. Labs Labs: Laboratory Results - last 24 hr 11/15/24 11/15/24 11/15/24 11:34 16:54 21:21 WBC RBC Hgb Hct MCV MCH MCHC RDW Plt Count MPV Immature Gran % (Auto) Neut % (Auto) Lymph % (Auto) [place] % (Auto) Eos % (Auto) Baso % (Auto) Lymph # (Auto) [place] # (Auto) Eos # (Auto) Baso # (Auto) Abs Immat Gran (auto) Absolute Neuts (auto) Absolute Nucleated RBC Nucleated RBC % Sodium Potassium Chloride Carbon Dioxide Anion Gap BUN Creatinine Estim Creat Clear Calc Estimated GFR Glucose POC Capillary Glucose 228 H 297 H 297 H Calcium Total Bilirubin AST ALT Alkaline Phosphatase Total Protein Albumin 11/16/24 11/16/24 11/16/24 06:09 06:10 07:52 WBC 8.2 RBC 3.84 L Hgb 12.2 L Hct 38.1 L MCV 99.2 MCH 31.8 MCHC 32.0 RDW 12.7 Plt Count 144 L MPV 10.2 Immature Gran % (Auto) 0.5 Neut % (Auto) 62.4 Lymph % (Auto) 21.6 [place] % (Auto) 9.8 H Eos % (Auto) 5.3 H Baso % (Auto) 0.4 Lymph # (Auto) 1.77 [place] # (Auto) 0.8 H Eos # (Auto) 0.4 H Baso # (Auto) 0.0 Abs Immat Gran (auto) 0.04 H Absolute Neuts (auto) 5.1 Absolute Nucleated RBC 0.000 Nucleated RBC % 0.0 Sodium 136 L Potassium 3.7 Chloride 104 Carbon Dioxide 29 Anion Gap 3 L BUN 35 H Creatinine 1.67 H Estim Creat Clear Calc 37 Estimated GFR 41 L Glucose 83 POC Capillary Glucose 98 Calcium 8.0 L Total Bilirubin 0.5 AST 24 ALT 28 Alkaline Phosphatase 81 Total Protein 5.0 L Albumin 2.7 L Quality VTE Prophylaxis VTE prophylaxis: mechanical ordered
[2024-11-16 11:58] LABS: Glucose Point of Care 205 mg/dl (65-105)
[2024-11-16] MEDS: INSULIN ASPART (*BKC) 100 UNITS/ML SUB-Q ×3 (12:32→21:08)
--- NOTE | 2024-11-16 12:56 | P.PNUR_ITS ---
Progress Note: A&P Assessment and Plan (1) Hydronephrosis: Code(s): N13.30 - Unspecified hydronephrosis Status: Acute Assessment and Plan: Most likely secondary to urinary retention. Will obtain renal ultrasound to evaluate degree of hydronephrosis (2) Hematuria: Qualifiers: Hematuria type: gross Qualified Code(s): R31.0 - Gross hematuria Code(s): R31.9 - Hematuria, unspecified Status: Acute Assessment and Plan: Traumatic secondary to urethral dilation of a stricture. No further intervention for this at this time. I believe he is scheduled for outpatient urodynamics. Will most likely need to go home with Park catheter until that is done. (3) MAXWELL (acute kidney injury): Code(s): N17.9 - Acute kidney failure, unspecified Status: Acute Assessment and Plan: Creatinine improving. Down to 1.67 today. Subjective Subjective Date/Time Seen: 11/16/24 12:56 Principal diagnosis: Renal insufficiency with urinary retention Interval history: Creatinine is improving. Down to 1.67 today. Will obtain a renal ultrasound to re-evaluate upper tracts. Review of Systems Review of Systems: All systems reviewed & are unremarkable except as noted in HPI and below Exam Const: General: cooperative and comfortable Resp: Effort & Inspection: normal respiratory effort Cardio: Rate: regular rate Rhythm: regular rhythm Urinary Catheter: Urinary Catheter: patent and draining and urine pink Objective Data Vital Signs Vital Signs: Vital Signs - 24 hr 11/15/24 14:00 11/15/24 20:00 11/15/24 20:16 Temperature 36.7 C Pulse Rate 76 77 Respiratory Rate 16 Blood Pressure 127/71 Pulse Oximetry 96 Oxygen Delivery Room Air 11/15/24 22:00 11/16/24 06:00 11/16/24 08:32 Temperature 36.6 C 36.7 C Pulse Rate 73 81 80 Respiratory Rate 18 18 Blood Pressure 165/77 H 114/89 Pulse Oximetry 97 99 Oxygen Delivery 11/16/24 09:03 Temperature Pulse Rate Respiratory Rate Blood Pressure Pulse Oximetry 98 Oxygen Delivery Room Air Intake/Output Intake/Output: Intake & Output 11/13/24 11/14/24 11/15/24 11/16/24 23:59 23:59 23:59 23:59 Intake Total 4730 3420 5020 2002.5 Output Total 4250 5550 2400 3000 Balance 480 -2130 2620 -997.5 Meds/Results Medications: Active Medications Generic Name Dose Route Start Last Admin Trade Name Freq PRN Reason Stop Dose Admin Acetaminophen 650 mg 11/13/24 04:57 Acetaminophen 325 Mg Tablet PO Q4H PRN Mild Pain (1-3) or Fever Aspirin 81 mg 11/13/24 08:00 11/13/24 09:08 Aspirin 81 Mg Enteric Tablet PO 81 mg DAILY@0800 JAYDEN Administration Dextrose 12.5 gm 11/13/24 04:58 Dextrose 50% 25 Gm/50 Ml Syringe IV PUSH PRN PRN Hypoglycemia Protocol Gabapentin 300 mg 11/13/24 09:00 11/16/24 08:31 Gabapentin 300 Mg Capsule PO 300 mg DAILY JAYDEN Administration Glucagon 1 mg 11/13/24 04:58 Glucagon For Inj 1 Mg Vial IM PRN PRN Hypoglycemia Protocol Glucose 15 gm 11/13/24 04:58 Glucose Oral Gel 15 Gm Of Glucse In 37.5 Gm Tube PO PRN PRN Hypoglycemia Protocol Hydralazine HCl 25 mg 11/13/24 09:00 11/16/24 08:32 Hydralazine Hcl 25 Mg Tablet PO Not Given DAILY JAYDEN Lactated Ringer's 1,000 mls @ 75 mls/hr 11/13/24 05:00 11/16/24 12:30 Lr - Lactated Ringers Iv IV CONT 125 mls/hr .[id number] JAYDEN Administration Dextrose 1,000 mls @ 100 mls/hr 11/13/24 04:58 Dextrose 5% 1,000 Ml IVPB PRN PRN Hypoglycemia Protocol Cefepime HCl 1 gm in 50 mls @ 100 mls/hr 11/13/24 09:00 11/16/24 08:30 Maxipime 1 Gm/Ns 50 Ml IVPB 100 mls/hr DAILY JAYDEN Administration Insulin Aspart 3 - 6 units 11/13/24 08:00 11/16/24 12:32 Insulin Aspart (*Bkc) 100 Units/Ml SUB-Q 3 units TIDWM AJYDEN Administration Protocol Insulin Aspart 1 - 3 units 11/13/24 21:00 11/15/24 22:35 Insulin Aspart (*Bkc) 100 Units/Ml SUB-Q 2 units HS JAYDEN Administration Protocol Insulin Glargine 54 units 11/14/24 09:00 11/16/24 08:39 Insulin Glargine (*Bkc) 100 Units/Ml SUB-Q 54 units DAILY JAYDEN Administration Latanoprost 1 drop 11/13/24 09:00 11/16/24 08:32 Latanoprost 0.005% Op Soln 2.5 Ml Btl EACH EYE 1 drop DAILY JAYDEN Administration Losartan Potassium 100 mg 11/13/24 09:00 11/16/24 08:32 Losartan Potassium 100 Mg Tablet PO 100 mg DAILY JAYDEN Administration Meclizine HCl 25 mg 11/13/24 07:34 Meclizine Hcl 25 Mg Tablet PO BID PRN dizziness Melatonin 3 mg 11/15/24 21:00 11/15/24 20:55 Melatonin 3 Mg Tablet PO 3 mg HS JAYDEN Administration Metoprolol Tartrate 25 mg 11/13/24 09:00 11/16/24 08:32 Metoprolol Tartrate 25 Mg Tablet PO 25 mg Q12HR JAYDEN Administration Ondansetron HCl 4 mg 11/13/24 04:57 Ondansetron Inj 4 Mg/2 Ml Vial IV PUSH Q4H PRN Nausea Polyethylene Glycol 17 gm 11/15/24 10:40 11/16/24 08:31 Polyethylene Glycol 3350 17 Gm Powd.Pack PO 17 gm QAM JAYDEN Administration Simvastatin 40 mg 11/13/24 09:00 11/16/24 08:31 Simvastatin 20 Mg Tablet PO 40 mg DAILY JAYDEN Administration Tamsulosin HCl 0.4 mg 11/13/24 21:00 11/15/24 20:15 Tamsulosin Hcl 0.4 Mg Capsule PO 0.4 mg HS JAYDEN Administration Timolol Maleate 1 drop 11/13/24 09:00 11/16/24 08:32 Timolol Maleate 0.5% Op Soln 5 Ml Bottle LEFT EYE 1 drop Q12HR JAYDEN Administration Radiology Results: ITS Impressions Abdomen/Pelvis CT 11/13/24 07:11 IMPRESSION: 1. Left lower lobe reticulonodular densities with largest nodule measuring 6 mm. These findings are most likely infectious/inflammatory, although neoplasm not e xcluded. Follow-up CT chest in 6 months recommended. 2: Moderate bilateral hydroureteronephrosis to the level of the UVJs, likely secondary to diffuse abnormal thickening of the bladder wall and enlargement of the prostate gland. No obstructing mass is seen. Cannot exclude underlying cystitis. Labs Labs: Laboratory Results - last 24 hr 02/02/25 02/02/25 02/03/25 16:54 21:21 06:09 WBC 8.2 RBC 3.84 L Hgb 12.2 L Hct 38.1 L MCV 99.2 MCH 31.8 MCHC 32.0 RDW 12.7 Plt Count 144 L MPV 10.2 Immature Gran % (Auto) 0.5 Neut % (Auto) 62.4 Lymph % (Auto) 21.6 [place] % (Auto) 9.8 H Eos % (Auto) 5.3 H Baso % (Auto) 0.4 Lymph # (Auto) 1.77 [place] # (Auto) 0.8 H Eos # (Auto) 0.4 H Baso # (Auto) 0.0 Abs Immat Gran (auto) 0.04 H Absolute Neuts (auto) 5.1 Absolute Nucleated RBC 0.000 Nucleated RBC % 0.0 Sodium Potassium Chloride Carbon Dioxide Anion Gap BUN Creatinine Estim Creat Clear Calc Estimated GFR Glucose POC Capillary Glucose 297 H 297 H Calcium Total Bilirubin AST ALT Alkaline Phosphatase Total Protein Albumin 11/16/24 11/16/24 11/16/24 06:10 07:52 11:40 WBC RBC Hgb Hct MCV MCH MCHC RDW Plt Count MPV Immature Gran % (Auto) Neut % (Auto) Lymph % (Auto) [place] % (Auto) Eos % (Auto) Baso % (Auto) Lymph # (Auto) [place] # (Auto) Eos # (Auto) Baso # (Auto) Abs Immat Gran (auto) Absolute Neuts (auto) Absolute Nucleated RBC Nucleated RBC % Sodium 136 L Potassium 3.7 Chloride 104 Carbon Dioxide 29 Anion Gap 3 L BUN 35 H Creatinine 1.67 H Estim Creat Clear Calc 37 Estimated GFR 41 L Glucose 83 POC Capillary Glucose 98 205 H Calcium 8.0 L Total Bilirubin 0.5 AST 24 ALT 28 Alkaline Phosphatase 81 Total Protein 5.0 L Albumin 2.7 L
[2024-11-16 14:00] VITALS: BP 111/76; PULSE 74; RESP 16; TEMP 36.4; O2SAT 96
[2024-11-16 16:57] LABS: Glucose Point of Care 259 mg/dl (65-105)
[2024-11-16 21:05] LABS: Glucose Point of Care 360 mg/dl (65-105)
[2024-11-16 21:07] VITALS: PULSE 73
[2024-11-16] MEDS: AMOXICILLIN/CLAVULANATE K 875-125 MG TAB 1 TABLET PO (21:07)
[2024-11-16] MEDS: MELATONIN 3 MG TABLET PO (21:07)
[2024-11-16] MEDS: TAMSULOSIN HCL 0.4 MG CAPSULE PO (21:07)
[2024-11-16 21:13] VITALS: BP 140/79; PULSE 75; RESP 16; TEMP 36.6; O2SAT 98
[2024-11-17 05:55] VITALS: BP 126/69; PULSE 73; RESP 16; TEMP 36.1; O2SAT 99
[2024-11-17 06:09] LABS: Basophils Percent Auto 0.3 % (0.2-1.2); Eosinophils Absolute Auto 0.5 K/mm3 (0-0.3); Eosinophils Percent Auto 7.9 % (0-4.4); Hematocrit 37.4 % (42.0-52.0); Hemoglobin 11.9 g/dL (14.0-18.0); Immature Granulocyte Absolute 0.01 K/mm3 (0.00-0.031); Immature Granulocyte Percent A 0.2 % (0-0.5); Lymphocytes Absolute Auto 1.26 K/mm3 (0.9-3.2); Lymphocytes Percent Auto 21.7 % (18.3-44.2); Mean Corpuscular HGB Conc 31.8 g/dl (32-36); Mean Corpuscular Hemoglobin 31.6 pg (26-34); Mean Corpuscular Volume 99.2 fl (80-100); Mean Platelet Volume 9.8 fl (7.4-10.4); Monocytes Absolute Auto 0.6 K/mm3 (0.1-0.6); Monocytes Percent Auto 9.5 % (2.6-8.5); Neutrophils Absolute Auto 3.5 K/mm3 (1.3-6.7); Neutrophils Percent Auto 60.4 % (45.5-73.1); Platelet Count Result 138 k/mm3 (150-375); Red Blood Count 3.77 M/mm3 (4.6-6.20); Red Cell Distribution Width 12.7 % (11.5-14.5); White Blood Count 5.8 K/mm3 (4.5-10.0)
[2024-11-17 06:20] LABS: Alanine Aminotransferase 38 U/L (6-50); Albumin Level 2.7 g/dL (3.5-5.1); Alkaline Phosphatase 82 U/L (38-126); Anion Gap 4 mmol/L (4-12); Aspartate Amino Transferase 28 U/L (17-59); Bilirubin,Total 0.5 mg/dL (0.2-1.3); Blood Urea Nitrogen 37 mg/dL (9-20); Calcium 8.1 mg/dL (8.4-10.2); Carbon Dioxide 28 mmol/L (22-30); Chloride 104 mmol/L (98-107); Estimated CRCL calculation 39 ml/min; Estimated Glomerular Filt Rate 43; Glucose 133 mg/dL (65-110); Potassium 3.7 mmol/L (3.4-5.0); Sodium 136 mmol/L (137-145)
[2024-11-17 07:53] LABS: Glucose Point of Care 141 mg/dl (65-105)
[2024-11-17] MEDS: LATANOPROST 0.005% OP SOLN 2.5 ML BTL 1 DROP EACH EYE (08:34)
[2024-11-17] MEDS: TIMOLOL MALEATE 0.5% OP SOLN 5 ML BOTTLE 1 DROP LEFT EYE ×2 (08:35→20:24)
[2024-11-17] MEDS: GABAPENTIN 300 MG CAPSULE PO (08:35)
[2024-11-17 08:36] VITALS: PULSE 76
[2024-11-17] MEDS: AMOXICILLIN/CLAVULANATE K 875-125 MG TAB 1 TABLET PO ×2 (08:36→20:23)
[2024-11-17] MEDS: hydrALAZINE HCL 25 MG TABLET PO (08:36)
[2024-11-17] MEDS: METOPROLOL TARTRATE 25 MG TABLET PO ×2 (08:36→20:23)
[2024-11-17] MEDS: LOSARTAN POTASSIUM 100 MG TABLET PO (08:37)
[2024-11-17] MEDS: SIMVASTATIN 20 MG TABLET 40 MG PO (08:37)
[2024-11-17] MEDS: INSULIN GLARGINE (*BKC) 100 UNITS/ML 54 UNITS SUB-Q (08:37)
--- NOTE | 2024-11-17 09:44 | P.PNUR_ITS ---
Progress Note: A&P Assessment and Plan (1) Hydronephrosis: Code(s): N13.30 - Unspecified hydronephrosis Status: Acute Assessment and Plan: Most likely secondary to urinary retention. 11/16/24 renal ultrasound shows moderate bilateral hydronephrosis, some improvement from prior imaging (2) Hematuria: Qualifiers: Hematuria type: gross Qualified Code(s): R31.0 - Gross hematuria Code(s): R31.9 - Hematuria, unspecified Status: Acute Assessment and Plan: Traumatic secondary to urethral dilation of a stricture prior to admission. No further intervention for this at this time. He is scheduled for outpatient urodynamics 11/18/24. Plan to discharge home with indwelling Park. (3) MAXWELL (acute kidney injury): Code(s): N17.9 - Acute kidney failure, unspecified Status: Acute Assessment and Plan: Creatinine improving. Cr 1.58 from 1.67. Plan - Maintain indwelling [place] catheter, properly secured off tension. - Anticipate improvement in bilateral hydroureteronephrosis over the next several weeks. - Urine culture negative for infection. - Plan for outpatient urology follow-up 11/18/24 for Urodynamics study as scheduled to assess for neurogenic bladder - Follow-up with Dr. Roldan 12/09/24 as scheduled. - No plan for inpatient urologic surgical intervention at this time. Subjective Subjective Date/Time Seen: 11/17/24 09:44 Interval history: NAEO; Patient comfortable on exam, OOB to chair. Reports earlier episode of nausea, now resolved. Indwelling Park draining pale pink urine, no clots. Exam Const: General: cooperative and comfortable Resp: Effort & Inspection: normal respiratory effort Cardio: Rate: regular rate Rhythm: regular rhythm Urinary Catheter: Urinary Catheter: patent and draining and urine pink Objective Data Vital Signs Vital Signs: Vital Signs - 24 hr 11/16/24 14:00 11/16/24 14:15 11/16/24 21:07 Temperature 97.5 F L Pulse Rate 74 73 Respiratory Rate 16 Blood Pressure 111/76 Pulse Oximetry 96 Oxygen Delivery Room Air 11/16/24 21:13 11/17/24 05:55 11/17/24 08:36 Temperature 97.8 F 97.0 F L Pulse Rate 75 73 76 Respiratory Rate 16 16 Blood Pressure 140/79 126/69 Pulse Oximetry 98 99 Oxygen Delivery 11/17/24 09:06 Temperature Pulse Rate Respiratory Rate Blood Pressure Pulse Oximetry Oxygen Delivery Room Air Intake/Output Intake/Output: Intake & Output 11/14/24 11/15/24 11/16/24 11/17/24 23:59 23:59 23:59 23:59 Intake Total 3420 5020 4482.5 450 Output Total 5550 2400 6715 1600 Balance -2130 2620 -2232.5 -1150 Meds/Results Medications: Active Medications Generic Name Dose Route Start Last Admin Trade Name Freq PRN Reason Stop Dose Admin Acetaminophen 650 mg 11/13/24 04:57 Acetaminophen 325 Mg Tablet PO Q4H PRN Mild Pain (1-3) or Fever Amoxicillin/Clavulanate Potassium 1 tablet 11/16/24 21:00 11/17/24 08:36 Amoxicillin/Clavulanate K 875-125 Mg Tab PO 11/22/24 21:01 1 tablet Q12HR JAYDEN Administration Aspirin 81 mg 11/13/24 08:00 11/13/24 09:08 Aspirin 81 Mg Enteric Tablet PO 81 mg DAILY@0800 JAYDEN Administration Dextrose 12.5 gm 11/13/24 04:58 Dextrose 50% 25 Gm/50 Ml Syringe IV PUSH PRN PRN Hypoglycemia Protocol Gabapentin 300 mg 11/13/24 09:00 11/17/24 08:35 Gabapentin 300 Mg Capsule PO 300 mg DAILY JAYDEN Administration Glucagon 1 mg 11/13/24 04:58 Glucagon For Inj 1 Mg Vial IM PRN PRN Hypoglycemia Protocol Glucose 15 gm 11/13/24 04:58 Glucose Oral Gel 15 Gm Of Glucse In 37.5 Gm Tube PO PRN PRN Hypoglycemia Protocol Hydralazine HCl 25 mg 11/13/24 09:00 11/17/24 08:36 Hydralazine Hcl 25 Mg Tablet PO 25 mg DAILY JAYDEN Administration Lactated Ringer's 1,000 mls @ 75 mls/hr 11/13/24 05:00 11/16/24 12:30 Lr - Lactated Ringers Iv IV CONT 125 mls/hr .[id number] JAYDEN Administration Dextrose 1,000 mls @ 100 mls/hr 11/13/24 04:58 Dextrose 5% 1,000 Ml IVPB PRN PRN Hypoglycemia Protocol Insulin Aspart 3 - 6 units 11/13/24 08:00 11/17/24 08:38 Insulin Aspart (*Bkc) 100 Units/Ml SUB-Q Not Given TIDWM [facility] Protocol Insulin Aspart 1 - 3 units 11/13/24 21:00 11/16/24 21:08 Insulin Aspart (*Bkc) 100 Units/Ml SUB-Q 3 units HS JAYDEN Administration Protocol Insulin Glargine 54 units 11/14/24 09:00 11/17/24 08:37 Insulin Glargine (*Bkc) 100 Units/Ml SUB-Q 54 units DAILY JAYDEN Administration Latanoprost 1 drop 11/13/24 09:00 11/17/24 08:34 Latanoprost 0.005% Op Soln 2.5 Ml Btl EACH EYE 1 drop DAILY JAYDEN Administration Losartan Potassium 100 mg 11/13/24 09:00 11/17/24 08:37 Losartan Potassium 100 Mg Tablet PO 100 mg DAILY JAYDEN Administration Meclizine HCl 25 mg 11/13/24 07:34 Meclizine Hcl 25 Mg Tablet PO BID PRN dizziness Melatonin 3 mg 11/15/24 21:00 11/16/24 21:07 Melatonin 3 Mg Tablet PO 3 mg HS JAYDEN Administration Metoprolol Tartrate 25 mg 11/13/24 09:00 11/17/24 08:36 Metoprolol Tartrate 25 Mg Tablet PO 25 mg Q12HR JAYDEN Administration Ondansetron HCl 4 mg 11/13/24 04:57 Ondansetron Inj 4 Mg/2 Ml Vial IV PUSH Q4H PRN Nausea Polyethylene Glycol 17 gm 11/15/24 10:40 11/17/24 08:38 Polyethylene Glycol 3350 17 Gm Powd.Pack PO Not Given QAM [facility] Simvastatin 40 mg 11/13/24 09:00 11/17/24 08:37 Simvastatin 20 Mg Tablet PO 40 mg DAILY JAYDEN Administration Tamsulosin HCl 0.4 mg 11/13/24 21:00 11/16/24 21:07 Tamsulosin Hcl 0.4 Mg Capsule PO 0.4 mg HS [facility] Administration Timolol Maleate 1 drop 11/13/24 09:00 11/17/24 08:35 Timolol Maleate 0.5% Op Soln 5 Ml Bottle LEFT EYE 1 drop Q12HR JAYDEN Administration Radiology Results: ITS Impressions Abdomen/Pelvis CT 11/13/24 07:11 IMPRESSION: 1. Left lower lobe reticulonodular densities with largest nodule measuring 6 mm. These findings are most likely infectious/inflammatory, although neoplasm not excluded. Follow-up CT chest in 6 months recommended. 2: Moderate bilateral hydroureteronephrosis to the level of the UVJs, likely secondary to diffuse abnormal thickening of the bladder wall and enlargement of the prostate gland. No obstructing mass is seen. Cannot exclude underlying cystitis. Renal Ultrasound 11/16/24 16:06 IMPRESSION: Moderate bilateral hydronephrosis, slightly improved bilaterally in the prior ultrasound, similar to the prior CT. Labs Labs: Laboratory Results - last 24 hr 11/16/24 11/16/24 11/16/24 11:40 16:44 20:12 WBC RBC Hgb Hct MCV MCH MCHC RDW Plt Count MPV Immature Gran % (Auto) Neut % (Auto) Lymph % (Auto) [place] % (Auto) Eos % (Auto) Baso % (Auto) Lymph # (Auto) [place] # (Auto) Eos # (Auto) Baso # (Auto) Abs Immat Gran (auto) Absolute Neuts (auto) Absolute Nucleated RBC Nucleated RBC % Sodium Potassium Chloride Carbon Dioxide Anion Gap BUN Creatinine Estim Creat Clear Calc Estimated GFR Glucose POC Capillary Glucose 205 H 259 H 360 H Calcium Total Bilirubin AST ALT Alkaline Phosphatase Total Protein Albumin 11/17/24 11/17/24 06:02 07:47 WBC 5.8 RBC 3.77 L Hgb 11.9 L Hct 37.4 L MCV 99.2 MCH 31.6 MCHC 31.8 L RDW 12.7 Plt Count 138 L MPV 9.8 Immature Gran % (Auto) 0.2 Neut % (Auto) 60.4 Lymph % (Auto) 21.7 [place] % (Auto) 9.5 H Eos % (Auto) 7.9 H Baso % (Auto) 0.3 Lymph # (Auto) 1.26 [place] # (Auto) 0.6 Eos # (Auto) 0.5 H Baso # (Auto) 0.0 Abs Immat Gran (auto) 0.01 Absolute Neuts (auto) 3.5 Absolute Nucleated RBC 0.000 Nucleated RBC % 0.0 Sodium 136 L Potassium 3.7 Chloride 104 Carbon Dioxide 28 Anion Gap 4 BUN 37 H Creatinine 1.58 H Estim Creat Clear Calc 39 Estimated GFR 43 L Glucose 133 H POC Capillary Glucose 141 H Calcium 8.1 L Total Bilirubin 0.5 AST 28 ALT 38 Alkaline Phosphatase 82 Total Protein 5.0 L Albumin 2.7 L
--- NOTE | 2024-11-17 11:05 | P.PNIM_ITS ---
Progress Note: A&P Assessment and Plan (1) MAXWELL (acute kidney injury): Code(s): N17.9 - Acute kidney failure, unspecified Status: Acute Assessment and Plan: * Likely secondary to urethral stricture and underlying bladder outlet obstruction. * Bilateral hydro noted on CT and MOISES * Expect renal function to improve with castle in place. * Creatinine improving from 2.66>2.48>2.15>1.90>1.67>1.58. * Monitor labs. * Urology following, appreciate recommendations. * 2/3 repeat Renal ultrasound ordered, awaiting test completion. * LR @75 ml/hr. (2) Hematuria: Qualifiers: Hematuria type: gross Qualified Code(s): R31.0 - Gross hematuria Code(s): R31.9 - Hematuria, unspecified Status: Acute Assessment and Plan: * Likely 2/2 UTI, hemorrhagic cystitis. * Patient was asymptomatic when retaining >2L urine prior to 11/12/24 Castle placement * Castle draining pink urine today, no clots * Home ASA on hold. * Urology following, ordered for castle to be irrigated. * Monitor output. * Rescheduled outpatient urodynamics for 11/20 @ 8 am. aware and agreeable. * Patient has FUP Appt with Dr. Roldan on 12/09/24. (3) Urinary tract infection in male: Code(s): N39.0 - Urinary tract infection, site not specified Status: Acute Assessment and Plan: * Urine red, turbid, 3+ protein, 2+ glucose, 3+ blood, positive nitrate, 3+ bilirubin, 2 + leukocytes, RBC >100, WBC 21-50. * Likely 2/2 severe, chronic urinary retention * Urine culture negative * 11/16/24 stopped Cefepime. * Switched to Augment 875-125 mg 1 tab q12. (4) Enlarged prostate: Code(s): N40.0 - Benign prostatic hyperplasia without lower urinary tract symptoms Status: Acute Assessment and Plan: * Continue home tamsulosin * Patient has a history of medication noncompliance with tamsulosin, finasteride, desmopressin (5) Hydronephrosis: Code(s): N13.30 - Unspecified hydronephrosis Status: Acute Assessment and Plan: * Likely 2/2 severe retention, bladder distention (6) Urethral stricture: Code(s): N35.919 - Unspecified urethral stricture, male, unspecified site Status: Inactive Assessment and Plan: * s/p urethral dilation 11/12/24 (7) Type 2 diabetes mellitus with diabetic neuropathy, unspecified: Code(s): E11.40 - Type 2 diabetes mellitus with diabetic neuropathy, unspecified Status: Acute Assessment and Plan: * Glargine 25 units subq daily, Aspart 6 units subq with meals, SSI, and hypoglycemic protocol. * HgbA1C 8.5%. (8) Nausea & vomiting: Code(s): R11.2 - Nausea with vomiting, unspecified Status: Acute Assessment and Plan: * Ondansetron 4 mg ivp q 4 PRN. (9) Essential (primary) hypertension: Code(s): I10 - Essential (primary) hypertension Status: Acute Assessment and Plan: * Blood pressure 114/89. * Continue Hydralazine 25 mg PO daily, Metoprolol 25 mg PO q 12, and Losartan 100 mg PO daily. (10) Mixed hyperlipidemia: Code(s): E78.2 - Mixed hyperlipidemia Status: Acute Assessment and Plan: * Continue Simvastatin 40 mg PO daily. Subjective Date/time seen: 11/17/24 11:05 Interval history: Patient reports feeling nauseated and having one episode of vomiting this morning. Patient reports not feeling well this morning. Patient denies chest pain, palpitations, headache, or dizziness. and brother in law at bedside. reports that patient was scheduled outpatient urodynamics on 11/18 at 8 am, called this afternoon and rescheduled for 11/20/24 at 8 am. aware of appointment rescheduled time. Review of Systems Review of Systems: All systems reviewed & are unremarkable except as noted in HPI and below Exam Const: General: no acute distress Resp: Effort & Inspection: normal respiratory effort Auscultation: clear to auscultation bilaterally Cardio: Rate: regular rate Rhythm: regular rhythm GI: GI Palp: Yes Soft to palpation Auscultation: normal bowel sounds Urinary Catheter: Urinary Catheter: urine red (lightening. ) Skin: Other: Two abrasions to right terrell healing. No drainage noted. Neuro: Speech: normal speech Extrem: General: no pedal edema Psych: Mental Status: mental status grossly normal Affect: normal affect Objective Data Vital Signs Vital Signs: Vital Signs - 24 hr 11/16/24 14:00 11/16/24 14:15 11/16/24 21:07 Temperature 97.5 F L Pulse Rate 74 73 Respiratory Rate 16 Blood Pressure 111/76 Pulse Oximetry 96 Oxygen Delivery Room Air 11/16/24 21:13 11/17/24 05:55 11/17/24 08:36 Temperature 97.8 F 97.0 F L Pulse Rate 75 73 76 Respiratory Rate 16 16 Blood Pressure 140/79 126/69 Pulse Oximetry 98 99 Oxygen Delivery 11/17/24 09:06 Temperature Pulse Rate Respiratory Rate Blood Pressure Pulse Oximetry Oxygen Delivery Room Air Intake/Output Intake/Output: Intake & Output 11/14/24 11/15/24 11/16/24 11/17/24 23:59 23:59 23:59 23:59 Intake Total 3420 5020 4482.5 450 Output Total 5550 2400 6715 1600 Balance -2130 2620 -2232.5 -1150 Meds/Results Medications: Active Medications Generic Name Dose Route Start Last Admin Trade Name Freq PRN Reason Stop Dose Admin Acetaminophen 650 mg 11/13/24 04:57 Acetaminophen 325 Mg Tablet PO Q4H PRN Mild Pain (1-3) or Fever Amoxicillin/Clavulanate Potassium 1 tablet 11/16/24 21:00 11/17/24 08:36 Amoxicillin/Clavulanate K 875-125 Mg Tab PO 11/22/24 21:01 1 tablet Q12HR JAYDEN Administration Aspirin 81 mg 11/13/24 08:00 11/13/24 09:08 Aspirin 81 Mg Enteric Tablet PO 81 mg DAILY@0800 JAYDEN Administration Dextrose 12.5 gm 11/13/24 04:58 Dextrose 50% 25 Gm/50 Ml Syringe IV PUSH PRN PRN Hypoglycemia Protocol Gabapentin 300 mg 11/13/24 09:00 11/17/24 08:35 Gabapentin 300 Mg Capsule PO 300 mg DAILY JAYDEN Administration Glucagon 1 mg 11/13/24 04:58 Glucagon For Inj 1 Mg Vial IM PRN PRN Hypoglycemia Protocol Glucose 15 gm 11/13/24 04:58 Glucose Oral Gel 15 Gm Of Glucse In 37.5 Gm Tube PO PRN PRN Hypoglycemia Protocol Hydralazine HCl 25 mg 11/13/24 09:00 11/17/24 08:36 Hydralazine Hcl 25 Mg Tablet PO 25 mg DAILY JAYDEN Administration Lactated Ringer's 1,000 mls @ 75 mls/hr 11/13/24 05:00 11/16/24 12:30 Lr - Lactated Ringers Iv IV CONT 125 mls/hr .[id number] JAYDEN Administration Dextrose 1,000 mls @ 100 mls/hr 11/13/24 04:58 Dextrose 5% 1,000 Ml IVPB PRN PRN Hypoglycemia Protocol Insulin Aspart 3 - 6 units 11/13/24 08:00 11/17/24 08:38 Insulin Aspart (*Bkc) 100 Units/Ml SUB-Q Not Given TIDWM JAYDEN Protocol Insulin Aspart 1 - 3 units 11/13/24 21:00 11/16/24 21:08 Insulin Aspart (*Bkc) 100 Units/Ml SUB-Q 3 units HS JAYDEN Administration Protocol Insulin Glargine 54 units 11/14/24 09:00 11/17/24 08:37 Insulin Glargine (*Bkc) 100 Units/Ml SUB-Q 54 units DAILY JAYDEN Administration Latanoprost 1 drop 11/13/24 09:00 11/17/24 08:34 Latanoprost 0.005% Op Soln 2.5 Ml Btl EACH EYE 1 drop DAILY JAYDEN Administration Losartan Potassium 100 mg 11/13/24 09:00 11/17/24 08:37 Losartan Potassium 100 Mg Tablet PO 100 mg DAILY JAYDEN Administration Meclizine HCl 25 mg 11/13/24 07:34 Meclizine Hcl 25 Mg Tablet PO BID PRN dizziness Melatonin 3 mg 11/15/24 21:00 11/16/24 21:07 Melatonin 3 Mg Tablet PO 3 mg HS JAYDEN Administration Metoprolol Tartrate 25 mg 11/13/24 09:00 11/17/24 08:36 Metoprolol Tartrate 25 Mg Tablet PO 25 mg Q12HR JAYDEN Administration Ondansetron HCl 4 mg 11/13/24 04:57 Ondansetron Inj 4 Mg/2 Ml Vial IV PUSH Q4H PRN Nausea Polyethylene Glycol 17 gm 11/15/24 10:40 11/17/24 08:38 Polyethylene Glycol 3350 17 Gm Powd.Pack PO Not Given QAM AJYDEN Simvastatin 40 mg 11/13/24 09:00 11/17/24 08:37 Simvastatin 20 Mg Tablet PO 40 mg DAILY JAYDEN Administration Tamsulosin HCl 0.4 mg 11/13/24 21:00 11/16/24 21:07 Tamsulosin Hcl 0.4 Mg Capsule PO 0.4 mg HS JAYDEN Administration Timolol Maleate 1 drop 11/13/24 09:00 11/17/24 08:35 Timolol Maleate 0.5% Op Soln 5 Ml Bottle LEFT EYE 1 drop Q12HR JAYDEN Administration Radiology Results: ITS Impressions Abdomen/Pelvis CT 11/13/24 07:11 IMPRESSION: 1. Left lower lobe reticulonodular densities with largest nodule measuring 6 mm. These findings are most likely infectious/inflammatory, although neoplasm not excluded. Follow-up CT chest in 6 months recommended. 2: Moderate bilateral hydroureteronephrosis to the level of the UVJs, likely secondary to diffuse abnormal thickening of the bladder wall and enlargement of the prostate gland. No obstructing mass is seen. Cannot exclude underlying cystitis. Renal Ultrasound 11/16/24 16:06 IMPRESSION: Moderate bilateral hydronephrosis, slightly improved bilaterally in the prior ultrasound, similar to the prior CT. Labs Labs: Laboratory Results - last 24 hr 11/16/24 11/16/24 11/16/24 11:40 16:44 20:12 WBC RBC Hgb Hct MCV MCH MCHC RDW Plt Count MPV Immature Gran % (Auto) Neut % (Auto) Lymph % (Auto) [place] % (Auto) Eos % (Auto) Baso % (Auto) Lymph # (Auto) [place] # (Auto) Eos # (Auto) Baso # (Auto) Abs Immat Gran (auto) Absolute Neuts (auto) Absolute Nucleated RBC Nucleated RBC % Sodium Potassium Chloride Carbon Dioxide Anion Gap BUN Creatinine Estim Creat Clear Calc Estimated GFR Glucose POC Capillary Glucose 205 H 259 H 360 H Calcium Total Bilirubin AST ALT Alkaline Phosphatase Total Protein Albumin 11/17/24 11/17/24 06:02 07:47 WBC 5.8 RBC 3.77 L Hgb 11.9 L Hct 37.4 L MCV 99.2 MCH 31.6 MCHC 31.8 L RDW 12.7 Plt Count 138 L MPV 9.8 Immature Gran % (Auto) 0.2 Neut % (Auto) 60.4 Lymph % (Auto) 21.7 [place] % (Auto) 9.5 H Eos % (Auto) 7.9 H Baso % (Auto) 0.3 Lymph # (Auto) 1.26 [place] # (Auto) 0.6 Eos # (Auto) 0.5 H Baso # (Auto) 0.0 Abs Immat Gran (auto) 0.01 Absolute Neuts (auto) 3.5 Absolute Nucleated RBC 0.000 Nucleated RBC % 0.0 Sodium 136 L Potassium 3.7 Chloride 104 Carbon Dioxide 28 Anion Gap 4 BUN 37 H Creatinine 1.58 H Estim Creat Clear Calc 39 Estimated GFR 43 L Glucose 133 H POC Capillary Glucose 141 H Calcium 8.1 L Total Bilirubin 0.5 AST 28 ALT 38 Alkaline Phosphatase 82 Total Protein 5.0 L Albumin 2.7 L Quality VTE Prophylaxis VTE prophylaxis: mechanical ordered
[2024-11-17] MEDS: ONDANSETRON INJ 4 MG/2 ML VIAL IV PUSH (11:11)
[2024-11-17 11:59] LABS: Glucose Point of Care 241 mg/dl (65-105)
[2024-11-17] MEDS: INSULIN ASPART (*BKC) 100 UNITS/ML SUB-Q ×3 (12:47→21:56)
[2024-11-17] MEDS: INSULIN ASPART (*BKC) 100 UNITS/ML 6 UNITS SUB-Q ×2 (12:48→17:35)
[2024-11-17 14:00] VITALS: BP 101/54; PULSE 73; RESP 16; TEMP 36.4; O2SAT 96
[2024-11-17 16:35] LABS: Glucose Point of Care 248 mg/dl (65-105)
[2024-11-17] MEDS: LACTATED RINGERS 1,000 ML 125 ML IV CONT (17:36)
[2024-11-17 20:23] VITALS: PULSE 68
[2024-11-17] MEDS: TAMSULOSIN HCL 0.4 MG CAPSULE PO (20:23)
[2024-11-17] MEDS: MELATONIN 3 MG TABLET PO (20:24)
[2024-11-17 21:10] VITALS: BP 126/70; PULSE 70; RESP 16; TEMP 36.3; O2SAT 98
[2024-11-17 21:54] LABS: Glucose Point of Care 249 mg/dl (65-105)
[2024-11-18 05:32] VITALS: BP 122/71; PULSE 69; RESP 16; TEMP 36.4; O2SAT 97
[2024-11-18] MEDS: LACTATED RINGERS 1,000 ML 125 ML IV CONT (06:03)
[2024-11-18 07:16] LABS: Basophils Percent Auto 0.4 % (0.2-1.2); Eosinophils Absolute Auto 0.5 K/mm3 (0-0.3); Eosinophils Percent Auto 8.5 % (0-4.4); Hematocrit 35.8 % (42.0-52.0); Hemoglobin 11.6 g/dL (14.0-18.0); Immature Granulocyte Absolute 0.01 K/mm3 (0.00-0.031); Immature Granulocyte Percent A 0.2 % (0-0.5); Lymphocytes Absolute Auto 1.33 K/mm3 (0.9-3.2); Lymphocytes Percent Auto 24.1 % (18.3-44.2); Mean Corpuscular HGB Conc 32.4 g/dl (32-36); Mean Corpuscular Hemoglobin 32.2 pg (26-34); Mean Corpuscular Volume 99.4 fl (80-100); Mean Platelet Volume 9.8 fl (7.4-10.4); Monocytes Absolute Auto 0.6 K/mm3 (0.1-0.6); Monocytes Percent Auto 10.3 % (2.6-8.5); Neutrophils Absolute Auto 3.1 K/mm3 (1.3-6.7); Neutrophils Percent Auto 56.5 % (45.5-73.1); Platelet Count Result 132 k/mm3 (150-375); Red Cell Distribution Width 12.4 % (11.5-14.5); White Blood Count 5.5 K/mm3 (4.5-10.0)
[2024-11-18 07:28] LABS: Alanine Aminotransferase 35 U/L (6-50); Albumin Level 2.6 g/dL (3.5-5.1); Alkaline Phosphatase 78 U/L (38-126); Anion Gap 3 mmol/L (4-12); Aspartate Amino Transferase 27 U/L (17-59); Bilirubin,Total 0.4 mg/dL (0.2-1.3); Blood Urea Nitrogen 37 mg/dL (9-20); Calcium 8.2 mg/dL (8.4-10.2); Carbon Dioxide 32 mmol/L (22-30); Chloride 102 mmol/L (98-107); Estimated CRCL calculation 36 ml/min; Estimated Glomerular Filt Rate 40; Glucose 105 mg/dL (65-110); Potassium 3.9 mmol/L (3.4-5.0); Sodium 137 mmol/L (137-145)
--- NOTE | 2024-11-18 07:34 | P.DS_ITS ---
DS: Admitting Diagnosis Discharge Date 11/18/24 Admitting Diagnosis MAXWELL, Hematuria, UTI, BPH DS: Discharge Diagnosis Discharge Diagnosis (1) MAXWELL (acute kidney injury): Code(s): N17.9 - Acute kidney failure, unspecified Status: Acute Assessment and Plan: * Likely secondary to urethral stricture and underlying bladder outlet obstruction. * Bilateral hydro noted on CT and MOISES * Expect renal function to improve with castle in place. * Creatinine improving from 2.66>2.48>2.15>1.90>1.67>1.58. * Monitor labs. * Urology following, appreciate recommendations. * 2/3 repeat Renal ultrasound ordered, awaiting test completion. * LR @75 ml/hr. 11/18/24: * Creatinine today is 1.71. At baseline for pt. * He has received IVF, has improved. * Urology consulted and will be following up with pt as outpt. (2) Hematuria: Qualifiers: Hematuria type: gross Qualified Code(s): R31.0 - Gross hematuria Code(s): R31.9 - Hematuria, unspecified Status: Acute Assessment and Plan: * Likely 2/2 UTI, hemorrhagic cystitis. * Patient was asymptomatic when retaining >2L urine prior to 11/12/24 Castle placement * Castle draining pink urine today, no clots * Home ASA on hold. * Urology following, ordered for castle to be irrigated. * Monitor output. * Rescheduled outpatient urodynamics for 11/20 @ 8 am. aware and agreeable. * Patient has FUP Appt with Dr. Roldan on 12/09/24. 11/18/24: * Keep follow up appointments. (3) Urinary tract infection in male: Code(s): N39.0 - Urinary tract infection, site not specified Status: Acute Assessment and Plan: * Urine red, turbid, 3+ protein, 2+ glucose, 3+ blood, positive nitrate, 3+ bilirubin, 2 + leukocytes, RBC >100, WBC 21-50. * Likely 2/2 severe, chronic urinary retention * Urine culture negative * 11/16/24 stopped Cefepime. * Switched to Augment 875-125 mg 1 tab q12. 11/18/24: * Continue Augmentin through 11/22/24 at 2100. * Urine culture without growth. (4) Enlarged prostate: Code(s): N40.0 - Benign prostatic hyperplasia without lower urinary tract symptoms Status: Acute Assessment and Plan: * Continue home tamsulosin * Patient has a history of medication noncompliance with tamsulosin, finasteride, desmopressin 11/18/24: * keep follow up for urodynamic testing as outpt. * Continue follow up with Urology. (5) Hydronephrosis: Code(s): N13.30 - Unspecified hydronephrosis Status: Acute Assessment and Plan: * Likely 2/2 severe retention, bladder distention (6) Urethral stricture: Code(s): N35.919 - Unspecified urethral stricture, male, unspecified site Status: Inactive Assessment and Plan: * s/p urethral dilation 11/12/24 (7) Type 2 diabetes mellitus with diabetic neuropathy, unspecified: Code(s): E11.40 - Type 2 diabetes mellitus with diabetic neuropathy, unspecified Status: Acute Assessment and Plan: * Glargine 25 units subq daily, Aspart 6 units subq with meals, SSI, and hypoglycemic protocol. * HgbA1C 8.5%. (8) Nausea & vomiting: Code(s): R11.2 - Nausea with vomiting, unspecified Status: Acute Assessment and Plan: * Ondansetron 4 mg ivp q 4 PRN. (9) Essential (primary) hypertension: Code(s): I10 - Essential (primary) hypertension Status: Acute Assessment and Plan: * Blood pressure 114/89. * Continue Hydralazine 25 mg PO daily, Metoprolol 25 mg PO q 12, and Losartan 100 mg PO daily. (10) Mixed hyperlipidemia: Code(s): E78.2 - Mixed hyperlipidemia Status: Acute Assessment and Plan: * Continue Simvastatin 40 mg PO daily. DS: Summary Hospital Course Reason for hospitalization: Hematuria with MAXWELL and Hydronephrosis in setting of urinary retention and BPH Hospital Course: Patient is a 69 year old male with hx of urinary stricture that requires him to have a catheter as outpt that developed blood in catheter. He presented to the ER on 11/13/24. Patient has known bilateral hydroureteronephrosis that will take a while to clear up per urology. In the ER the pt had a UA that reflected red urine, turbidity, 3+ protein, 3+ blood, positive nitrates, 2+ Leukocytes and WBC's 21-50. Pt was started on abx and has been weaned to Augmentin 875 mg BID to continue through 11/22/24, but his culture had no growth. He had a slight MAXWELL, with baseline renal function being 1.1-1.2. He was admitted to the hospital and Urology was consulted in addition he was given IVF. During his admission, a Renal US was done that showed a distended bladder with moderate bilateral hydroureteronephrosis suggesting bladder outlet obstruction vs. neurogenic bladder. Renal function has slowly improved with fluids and placement of castle. He has been set up for outpt urodynamic testing on 11/20/24 at 0800 and will follow up with Dr. Roldan on 12/09/24. His hospital course was otherwise unremarkable. He has no new complaints today. Status at Discharge Cognitive/behavioral status at discharge: At baseline. Functional status at discharge: independent ambulation Overall status at discharge: patient is back to baseline Time Spent with Patient Time attestation: Total time spent providing and/or coordinating discharge services: Time spent: Greater than 30 minutes Specific discharge activities: Discharge instructions, follow up, castle care Exam Const: General: comfortable and no acute distress HENMT: Other: Hard of hearing. Eyes: Sclera: sclerae normal Pupils: Equal, round and reactive pupils present Resp: Effort & Inspection: normal respiratory effort Auscultation: clear to auscultation bilaterally Cardio: Rate: regular rate Rhythm: regular rhythm GI: Auscultation: normal bowel sounds Urinary Catheter: Urinary Catheter: urine red (lightening. ) Skin: Other: Two abrasions to right terrell healing. No drainage noted. Neuro: Cranial nerves: Yes Equal, round and reactive pupils present Speech: normal speech Extrem: General: no pedal edema Psych: Mental Status: mental status grossly normal Affect: normal affect DS: Data Data Completed and Pending Completed studies during hospitalization: ITS Impressions Abdomen/Pelvis CT 11/13/24 07:11 IMPRESSION: 1. Left lower lobe reticulonodular densities with largest nodule measuring 6 mm. These findings are most likely infectious/inflammatory, although neoplasm not excluded. Follow-up CT chest in 6 months recommended. 2: Moderate bilateral hydroureteronephrosis to the level of the UVJs, likely secondary to diffuse abnormal thickening of the bladder wall and enlargement of the prostate gland. No obstructing mass is seen. Cannot exclude underlying cystitis. Renal Ultrasound 11/16/24 16:06 IMPRESSION: Moderate bilateral hydronephrosis, slightly improved bilaterally in the prior ultrasound, similar to the prior CT. Labs on day of discharge: Labs from last 24 hours 11/18/24 11/17/24 11/17/24 07:03 21:49 16:28 WBC 5.5 RBC 3.60 L Hgb 11.6 L Hct 35.8 L MCV 99.4 MCH 32.2 MCHC 32.4 RDW 12.4 Plt Count 132 L MPV 9.8 Immature Gran % (Auto) 0.2 Neut % (Auto) 56.5 Lymph % (Auto) 24.1 [place] % (Auto) 10.3 H Eos % (Auto) 8.5 H Baso % (Auto) 0.4 Lymph # (Auto) 1.33 [place] # (Auto) 0.6 Eos # (Auto) 0.5 H Baso # (Auto) 0.0 Abs Immat Gran (auto) 0.01 Absolute Neuts (auto) 3.1 Absolute Nucleated RBC 0.000 Nucleated RBC % 0.0 Sodium 137 Potassium 3.9 Chloride 102 Carbon Dioxide 32 H Anion Gap 3 L BUN 37 H Creatinine 1.71 H Estim Creat Clear Calc 36 Estimated GFR 40 L Glucose 105 POC Capillary Glucose 249 H 248 H Calcium 8.2 L Total Bilirubin 0.4 AST 27 ALT 35 Alkaline Phosphatase 78 Total Protein 5.0 L Albumin 2.6 L 11/17/24 11/17/24 11:30 07:47 WBC RBC Hgb Hct MCV MCH MCHC RDW Plt Count MPV Immature Gran % (Auto) Neut % (Auto) Lymph % (Auto) [place] % (Auto) Eos % (Auto) Baso % (Auto) Lymph # (Auto) [place] # (Auto) Eos # (Auto) Baso # (Auto) Abs Immat Gran (auto) Absolute Neuts (auto) Absolute Nucleated RBC Nucleated RBC % Sodium Potassium Chloride Carbon Dioxide Anion Gap BUN Creatinine Estim Creat Clear Calc Estimated GFR Glucose POC Capillary Glucose 241 H 141 H Calcium Total Bilirubin AST ALT Alkaline Phosphatase Total Protein Albumin Discharge Plan Discharge Attending physician on discharge: Mayra Kennedy Consulting providers: Nolberto Hart Discharging Clinician: Mayra Kennedy Anticipated Discharge Date/Time: 11/18/24 13:07 Activity: as tolerated Diet: diabetic Discharge Instructions: Please practice castle catheter care as directed. Do not have any tension on the catheter that is draining the urine. Take all medications as ordered. Follow up for testing as ordered and for follow up with PCP and Urolgy as ordered. Return to ER if any worsening of symptoms. Patient Language: Khmer Follow-up/Referrals: Jamie Roldan MD [Physician] - 11/20/24 8:00 am (Urodynamics study Also follow up with him on 12/09/24 for outpatient appointment.) Lorraine Mi DO [Primary Care Provider] - Discharge Medications: New amoxicillin-pot clavulanate 875-125 mg tablet 1 tablet PO Q12H Qty: 10 0RF Continued (DME) lancets 31 gauge misc See Rx Instructions .Route Qty: 100 3RF Rx Instructions: Use to check blood sugar 2 times daily timolol maleate 0.5 % drops 1 drp EACH EYE DIRECTED latanoprost 0.005 % drops 1 drp EACH EYE DAILY metformin 500 mg tablet extended release 24 hr 1,000 mg PO BID Qty: 360 1RF (DME) Dexcom G7 Senior Software Project Manager Misc See Rx Instructions .Route Qty: 1 0RF Rx Instructions: As directed (DME) Ultima Test Strips Strip See Rx Instructions .Route Qty: 100 3RF Rx Instructions: Use to check blood sugar 4 times daily (DME) pen needle, diabetic [1st Tier Unifine Pentips Plus] 31 gauge x 5/16 needle See Rx Instructions .Route Qty: 120 3RF Rx Instructions: Use to inject insulin up to 4 times daily meclizine 25 mg tablet 25 mg PO BID PRN (Reason: dizziness) Qty: 60 1RF tamsulosin 0.4 mg capsule 0.4 mg PO HS insulin glargine [Lantus U-100 Insulin] 100 unit/mL solution 54 unit subcut DAILY gabapentin 300 mg capsule 300 mg PO DAILY metoprolol tartrate 25 mg tablet 25 mg PO BID Qty: 200 3RF simvastatin 40 mg tablet 40 mg PO DAILY Qty: 100 1RF hydrochlorothiazide 25 mg tablet 25 mg PO DAILY Qty: 90 1RF losartan 100 mg tablet 100 mg PO DAILY Qty: 90 1RF Jardiance 25 mg tablet 25 mg PO QAM (DME) Dexcom G7 Sensor Device See Rx Instructions .Route Qty: 1 4RF Rx Instructions: As directed hydralazine 25 mg tablet 25 mg PO DAILY Qty: 90 1RF Held aspirin 81 mg tablet,delayed release (DR/EC) 81 mg PO .QOD Hold Instructions: Resume on 12/10/24. Date of admission: 11/14/24 16:13 Primary Care Provider: Lorraine Mi Admitting Provider: Tamar Palmer V. Attending physician on admission: Mayra Kennedy Condition: Stable Quality VTE Prophylaxis VTE prophylaxis: mechanical ordered Hospitalist MIPS Heart Failure (Exclusion) Patient has history of Heart Transplant or Left Ventricular Assistive Device?: No IF YES, STOP HERE Heart Failure (Qualifier) Patient has current or prior documentation of LVEF less than or equal to 40%, or mod/servere depressed LVSF?: No IF NO, STOP HERE
[2024-11-18 08:00] LABS: Glucose Point of Care 129 mg/dl (65-105)
[2024-11-18] MEDS: SIMVASTATIN 20 MG TABLET 40 MG PO (09:16)
[2024-11-18] MEDS: LOSARTAN POTASSIUM 100 MG TABLET PO (09:16)
[2024-11-18] MEDS: GABAPENTIN 300 MG CAPSULE PO (09:16)
[2024-11-18] MEDS: AMOXICILLIN/CLAVULANATE K 875-125 MG TAB 1 TABLET PO (09:16)
[2024-11-18] MEDS: polyethylene glycoL 3350 17 GM POWD.PACK PO (09:16)
[2024-11-18 09:17] VITALS: PULSE 69
[2024-11-18] MEDS: METOPROLOL TARTRATE 25 MG TABLET PO (09:17)
[2024-11-18] MEDS: INSULIN GLARGINE (*BKC) 100 UNITS/ML 25 UNITS SUB-Q (09:17)
[2024-11-18] MEDS: hydrALAZINE HCL 25 MG TABLET PO (09:17)
[2024-11-18] MEDS: INSULIN ASPART (*BKC) 100 UNITS/ML 6 UNITS SUB-Q ×2 (09:18→12:16)
[2024-11-18] MEDS: LATANOPROST 0.005% OP SOLN 2.5 ML BTL 1 DROP EACH EYE (09:27)
[2024-11-18] MEDS: TIMOLOL MALEATE 0.5% OP SOLN 5 ML BOTTLE 1 DROP LEFT EYE (09:28)
[2024-11-18 11:40] LABS: Glucose Point of Care 198 mg/dl (65-105)
[2024-11-18 12:19] LABS: Alanine Aminotransferase 41 U/L (6-50); Albumin Level 2.7 g/dL (3.5-5.1); Alkaline Phosphatase 94 U/L (38-126); Anion Gap 5 mmol/L (4-12); Aspartate Amino Transferase 33 U/L (17-59); Bilirubin,Total 0.5 mg/dL (0.2-1.3); Blood Urea Nitrogen 40 mg/dL (9-20); Calcium 8.2 mg/dL (8.4-10.2); Carbon Dioxide 30 mmol/L (22-30); Chloride 99 mmol/L (98-107); Estimated CRCL calculation 41 ml/min; Estimated Glomerular Filt Rate 45; Glucose 182 mg/dL (65-110); Potassium 4.2 mmol/L (3.4-5.0); Sodium 134 mmol/L (137-145)
--- NOTE | 2024-11-18 13:04 | P.PNUR_ITS ---
Progress Note: A&P Assessment and Plan (1) Hydronephrosis: Code(s): N13.30 - Unspecified hydronephrosis Status: Acute Assessment and Plan: May be chronic dilatation at this point time. His creatinine continues to improve down to 1.53. Okay for discharge from my standpoint. He will follow-up with Dr. Roldan as previously scheduled. (2) Acute kidney injury superimposed on CKD: Code(s): N17.9 - Acute kidney failure, unspecified; N18.9 - Chronic kidney disease, unspecified Status: Acute Assessment and Plan: See above (3) Hematuria: Qualifiers: Hematuria type: gross Qualified Code(s): R31.0 - Gross hematuria Code(s): R31.9 - Hematuria, unspecified Status: Acute Assessment and Plan: Resolved at this time Subjective Subjective Date/Time Seen: 11/18/24 13:04 Principal diagnosis: renal insufficiency and urinary retention with urethral stricture Interval history: Doing better at the present time. His urine has cleared. Creatinine had a slight bump this morning to 1.7 but recheck was down to 1.53. Review of Systems Review of Systems: All systems reviewed & are unremarkable except as noted in HPI and below Exam Const: General: cooperative and comfortable Resp: Effort & Inspection: normal respiratory effort Urinary Catheter: Urinary Catheter: patent and draining and urine clear Objective Data Vital Signs Vital Signs: Vital Signs - 24 hr 11/17/24 14:00 11/17/24 20:00 11/17/24 20:23 Temperature 36.4 C L Pulse Rate 73 68 Respiratory Rate 16 Blood Pressure 101/54 L Pulse Oximetry 96 Oxygen Delivery Room Air 11/17/24 21:10 11/18/24 05:32 11/18/24 09:17 Temperature 36.3 C L 36.4 C L Pulse Rate 70 69 69 Respiratory Rate 16 16 Blood Pressure 126/70 122/71 Pulse Oximetry 98 97 Oxygen Delivery 11/18/24 09:20 Temperature Pulse Rate Respiratory Rate Blood Pressure Pulse Oximetry Oxygen Delivery Room Air Intake/Output Intake/Output: Intake & Output 11/15/24 11/16/24 11/17/24 11/18/24 23:59 23:59 23:59 23:59 Intake Total 5020 5482.5 1210 2187 Output Total 2400 6715 4700 3500 Balance 2620 -1232.5 -3490 -1313 Meds/Results Medications: Active Medications Generic Name Dose Route Start Last Admin Trade Name Freq PRN Reason Stop Dose Admin Acetaminophen 650 mg 11/13/24 04:57 Acetaminophen 325 Mg Tablet PO Q4H PRN Mild Pain (1-3) or Fever Amoxicillin/Clavulanate Potassium 1 tablet 11/16/24 21:00 11/18/24 09:16 Amoxicillin/Clavulanate K 875-125 Mg Tab PO 11/22/24 21:01 1 tablet Q12HR JAYDEN Administration Aspirin 81 mg 11/13/24 08:00 11/13/24 09:08 Aspirin 81 Mg Enteric Tablet PO 81 mg DAILY@0800 JAYDEN Administration Dextrose 12.5 gm 11/13/24 04:58 Dextrose 50% 25 Gm/50 Ml Syringe IV PUSH PRN PRN Hypoglycemia Protocol Gabapentin 300 mg 11/13/24 09:00 11/18/24 09:16 Gabapentin 300 Mg Capsule PO 300 mg DAILY JAYDEN Administration Glucagon 1 mg 11/13/24 04:58 Glucagon For Inj 1 Mg Vial IM PRN PRN Hypoglycemia Protocol Glucose 15 gm 11/13/24 04:58 Glucose Oral Gel 15 Gm Of Glucse In 37.5 Gm Tube PO PRN PRN Hypoglycemia Protocol Hydralazine HCl 25 mg 11/13/24 09:00 11/18/24 09:17 Hydralazine Hcl 25 Mg Tablet PO 25 mg DAILY JAYDEN Administration Lactated Ringer's 1,000 mls @ 75 mls/hr 11/13/24 05:00 11/18/24 06:03 Lr - Lactated Ringers Iv IV CONT 125 mls/hr .[id number] JAYDEN Administration Dextrose 1,000 mls @ 100 mls/hr 11/13/24 04:58 Dextrose 5% 1,000 Ml IVPB PRN PRN Hypoglycemia Protocol Insulin Aspart 3 - 6 units 11/13/24 08:00 11/18/24 12:16 Insulin Aspart (*Bkc) 100 Units/Ml SUB-Q Not Given TIDWM JAYDEN Protocol Insulin Aspart 1 - 3 units 11/13/24 21:00 11/17/24 21:56 Insulin Aspart (*Bkc) 100 Units/Ml SUB-Q 1 units HS JAYDEN Administration Protocol Insulin Aspart 6 units 11/17/24 12:00 11/18/24 12:16 Insulin Aspart (*Bkc) 100 Units/Ml 0.067 units/kg (6 units) 6 units SUB-Q Administration TIDWM JAYDEN Insulin Glargine 25 units 11/18/24 09:00 11/18/24 09:17 Insulin Glargine (*Bkc) 100 Units/Ml 0.3 units/kg (25 units) 25 units SUB-Q Administration DAILY JAYDEN Latanoprost 1 drop 11/13/24 09:00 11/18/24 09:27 Latanoprost 0.005% Op Soln 2.5 Ml Btl EACH EYE 1 drop DAILY JAYDEN Administration Losartan Potassium 100 mg 11/13/24 09:00 11/18/24 09:16 Losartan Potassium 100 Mg Tablet PO 100 mg DAILY JAYDEN Administration Meclizine HCl 25 mg 11/13/24 07:34 Meclizine Hcl 25 Mg Tablet PO BID PRN dizziness Melatonin 3 mg 11/15/24 21:00 11/17/24 20:24 Melatonin 3 Mg Tablet PO 3 mg HS JAYDEN Administration Metoprolol Tartrate 25 mg 11/13/24 09:00 11/18/24 09:17 Metoprolol Tartrate 25 Mg Tablet PO 25 mg Q12HR JAYDEN Administration Ondansetron HCl 4 mg 11/13/24 04:57 11/17/24 11:11 Ondansetron Inj 4 Mg/2 Ml Vial IV PUSH 4 mg Q4H PRN Administration Nausea Polyethylene Glycol 17 gm 11/15/24 10:40 11/18/24 09:16 Polyethylene Glycol 3350 17 Gm Powd.Pack PO 17 gm QAM JAYDEN Administration Simvastatin 40 mg 11/13/24 09:00 11/18/24 09:16 Simvastatin 20 Mg Tablet PO 40 mg DAILY JAYDEN Administration Tamsulosin HCl 0.4 mg 11/13/24 21:00 11/17/24 20:23 Tamsulosin Hcl 0.4 Mg Capsule PO 0.4 mg HS JAYDEN Administration Timolol Maleate 1 drop 11/13/24 09:00 11/18/24 09:28 Timolol Maleate 0.5% Op Soln 5 Ml Bottle LEFT EYE 1 drop Q12HR JAYDEN Administration Radiology Results: ITS Impressions Abdomen/Pelvis CT 11/13/24 07:11 IMPRESSION: 1. Left lower lobe reticulonodular densities with largest nodule measuring 6 mm. These findings are most likely infectious/inflammatory, although neoplasm not excluded. Follow-up CT chest in 6 months recommended. 2: Moderate bilateral hydroureteronephrosis to the level of the UVJs, likely secondary to diffuse abnormal thickening of the bladder wall and enlargement of the prostate gland. No obstructing mass is seen. Cannot exclude underlying cysti tis. Renal Ultrasound 11/16/24 16:06 IMPRESSION: Moderate bilateral hydronephrosis, slightly improved bilaterally in the prior ultrasound, similar to the prior CT. Labs Labs: Laboratory Results - last 24 hr 11/17/24 11/17/24 11/18/24 16:28 21:49 07:03 WBC 5.5 RBC 3.60 L Hgb 11.6 L Hct 35.8 L MCV 99.4 MCH 32.2 MCHC 32.4 RDW 12.4 Plt Count 132 L MPV 9.8 Immature Gran % (Auto) 0.2 Neut % (Auto) 56.5 Lymph % (Auto) 24.1 [place] % (Auto) 10.3 H Eos % (Auto) 8.5 H Baso % (Auto) 0.4 Lymph # (Auto) 1.33 [place] # (Auto) 0.6 Eos # (Auto) 0.5 H Baso # (Auto) 0.0 Abs Immat Gran (auto) 0.01 Absolute Neuts (auto) 3.1 Absolute Nucleated RBC 0.000 Nucleated RBC % 0.0 Sodium 137 Potassium 3.9 Chloride 102 Carbon Dioxide 32 H Anion Gap 3 L BUN 37 H Creatinine 1.71 H Estim Creat Clear Calc 36 Estimated GFR 40 L Glucose 105 POC Capillary Glucose 248 H 249 H Calcium 8.2 L Total Bilirubin 0.4 AST 27 ALT 35 Alkaline Phosphatase 78 Total Protein 5.0 L Albumin 2.6 L 11/18/24 11/18/24 11/18/24 07:55 11:35 12:00 WBC RBC Hgb Hct MCV MCH MCHC RDW Plt Count MPV Immature Gran % (Auto) Neut % (Auto) Lymph % (Auto) [place] % (Auto) Eos % (Auto) Baso % (Auto) Lymph # (Auto) [place] # (Auto) Eos # (Auto) Baso # (Auto) Abs Immat Gran (auto) Absolute Neuts (auto) Absolute Nucleated RBC Nucleated RBC % Sodium 134 L Potassium 4.2 Chloride 99 Carbon Dioxide 30 Anion Gap 5 BUN 40 H Creatinine 1.53 H Estim Creat Clear Calc 41 Estimated GFR 45 L Glucose 182 H POC Capillary Glucose 129 H 198 H Calcium 8.2 L Total Bilirubin 0.5 AST 33 ALT 41 Alkaline Phosphatase 94 Total Protein 5.0 L Albumin 2.7 L
[2024-11-18 13:53] VITALS: BP 121/68; PULSE 74; RESP 16; TEMP 36.8; O2SAT 99
== END 2024-11-18 14:30 | disposition home or self-care (01) | DRG 726 ==
LOC: ANHED 11-13 05:02 → ANH3MEDSUR 11-13 05:41
PROVIDERS: Nurse Practitioner Family; Urology; Admitting Provider Internal Medicine; Emergency Provider Student in an Organized Health Care Education/Training Program; PCP Family Medicine; Visit Provider Nurse Practitioner Adult Health
DX: N40.1 Benign prostatic hyperplasia with lower urinary tract symptoms (principal); N13.6 Pyonephrosis; N17.9 Acute kidney failure, unspecified; N35.919 Unspecified urethral stricture, male, unspecified site; I12.9 Hypertensive chronic kidney disease with stage 1 through stage 4 chronic kidney disease, or unspecified chronic kidney disease; I25.10 Atherosclerotic heart disease of native coronary artery without angina pectoris; N18.9 Chronic kidney disease, unspecified; N32.0 Bladder-neck obstruction; R33.8 Other retention of urine; E11.319 Type 2 diabetes mellitus with unspecified diabetic retinopathy without macular edema; E11.40 Type 2 diabetes mellitus with diabetic neuropathy, unspecified; E78.2 Mixed hyperlipidemia; E04.2 Nontoxic multinodular goiter; Z79.82 Long term (current) use of aspirin; Z79.4 Long term (current) use of insulin; Z87.891 Personal history of nicotine dependence; Z95.1 Presence of aortocoronary bypass graft; Z91.148 Patient's other noncompliance with medication regimen for other reason
CPT/HCPCS: 36415; 74176; 76775; 80048; 80053; 81001; 82948; 83036; 83605; 83735; 85025; 85055; 85610; 85730; 87086; 96365; 96375; 97161; 97165; 99285; A9270; G0378; J0692; J0744; J1815; J2270; J2405; J7030; J7120

== ENCOUNTER 2024-11-19 08:13 | Outpatient (CLI) | payer MEDICARE, SELFPAY ==
--- NOTE | ~2024-11-19 | CT_ITS ---
Non-contrast CT scan of the Abdomen and Pelvis Clinical indication: Benign prostatic hypertrophy Technique: 2.5 mm axial scans were obtained through the abdomen and pelvis without intravenous or or al contrast. Dose reduction technique was used on this scan by utilizing automated exposure control a nd iterative reconstruction technique. The dose-length product (DLP) was 869.37 mGy-cm. COMPARISON: 11/13/2024 Findings: Images through the lung bases reveal no abnormalities. There is mild to moderate bilateral hydroureteronephrosis extending to the urinary bladder, right wor se than left. No radiopaque stones identified. The liver, spleen, pancreas, gallbladder, and adrenals appear normal. There is no aortic aneurysm. There is no evidence of bowel obstruction. Images through the pelvis were performed. There is no evidence of ascites or lymphadenopathy. There i s diffuse urinary bladder wall thickening, with Park catheter in place. Prostate gland is significan tly enlarged. Impression: Urinary bladder wall thickening is suspicious for cystitis. Prostatomegaly, stable from prior exam. Mild to moderate bilateral hydroureteronephrosis, likely related to bladder outlet obstruction. Reviewed, dictated and finalized at [facility]. [employer] Impression: Urinary bladder wall thickening is suspicious for cystitis. Prostatomegaly, stable from prior exam. Mild to moderate bilateral hydroureteronephrosis, likely related to bladder out let obstruction.
== END 2024-11-19 08:14 | disposition home or self-care (01) ==
LOC: GOSHIMG 08:14
PROVIDERS: PCP Family Medicine; Referring Provider Internal Medicine Nephrology; Visit Provider Urology
DX: N40.1 Benign prostatic hyperplasia with lower urinary tract symptoms (principal); N32.89 Other specified disorders of bladder; N13.30 Unspecified hydronephrosis
CPT/HCPCS: 74176

== ENCOUNTER 2024-12-08 14:42 | Outpatient (CLI) | payer MEDICARE, SELFPAY ==
--- OUTSIDE RECORDS SUMMARY | 2024-12-08 17:09 | XMS_ITS | Clinical Summary ---
Author Organization [facility] Address [address] [place] [address] Phone Care Team Providers Care Mail Manager Name Role Phone Faheem Brady MD Primary Care Provider [phone] Allergies Active Allergy Reactions Criticality Noted Date [...] Active Lancet Devices (Simple Diagnostics Lancing Dev) [facility] 06/12/2022 Active Pharmacist Choice Lancets [facility] 06/12/2022 Active Active Problems Problem Noted Date [...] Comments Blood Pressure 134/78 08/22/2022 10:15 AM AUTISM TUTOR Pulse - - Temperature 36.1 C (96.9 F) 08/22/2022 10:15 AM AUTISM TUTOR Respiratory Rate 18 08/22/2022 10:15 AM AUTISM TUTOR Oxygen Saturation - - Inhaled Oxygen Concentration - - Weight 89.4 kg (197 lb) 08/22/2022 10:15 AM AUTISM TUTOR Height 177.8 cm (5' 10 ) 08/22/2022 10:15 AM AUTISM TUTOR Body Mass Index 28.27 08/22/2022 10:15 AM AUTISM TUTOR Plan of Treatment Health Maintenance Due Date Last Done Comments Diabetic Foot Exam 1965 Ophthalmology Exam 1965 Influenza Vaccine (#1) 2024 Pneumococcal PPSV23/PCV13 65 + Years / High and Highest Risk Completed 04/04/2018, 11/14/2016 Care Teams Mail Manager Relationship Specialty Start Date End Date Faheem Brady MD PCP - General Family Medicine 08/22/22
[2024-12-08 19:13] LABS: Alanine Aminotransferase 22 U/L (6-50); Albumin Level 3.7 g/dL (3.5-5.1); Alkaline Phosphatase 142 U/L (38-126); Anion Gap 8 mmol/L (4-12); Aspartate Amino Transferase 35 U/L (17-59); Bilirubin,Total 0.3 mg/dL (0.2-1.3); Blood Urea Nitrogen 43 mg/dL (9-20); Calcium 8.9 mg/dL (8.4-10.2); Carbon Dioxide 27 mmol/L (22-30); Chloride 102 mmol/L (98-107); Cholesterol 133 mg/dL (0-200); Estimated Glomerular Filt Rate 43; Glucose 158 mg/dL (65-110); HDL Direct 48 mg/dL; Potassium 4.9 mmol/L (3.4-5.0); Sodium 137 mmol/L (137-145); Triglycerides 177 mg/dL (<150)
[2024-12-08 19:23] LABS: LDL Cholesterol Direct 53 mg/dL
[2024-12-08 19:30] LABS: Hematocrit 41.6 % (42.0-52.0); Hemoglobin 13.2 g/dL (14.0-18.0); Mean Corpuscular HGB Conc 31.7 g/dl (32-36); Mean Corpuscular Hemoglobin 31.5 pg (26-34); Mean Corpuscular Volume 99.3 fl (80-100); Mean Platelet Volume 10.2 fl (7.4-10.4); Platelet Count Result 179 k/mm3 (150-375); Red Blood Count 4.19 M/mm3 (4.6-6.20); Red Cell Distribution Width 12.3 % (11.5-14.5); White Blood Count 6.2 K/mm3 (4.5-10.0)
[2024-12-08 19:55] LABS: Microalbumin Urine Random 159.6 mg/L (0-16.7)
[2024-12-08 20:01] LABS: Creatinine Urine 22.2 mg/dL; MALB Creatinine Ratio 718.9 mg/g (0-30)
[2024-12-08 20:04] LABS: Creatinine Urine 22.1 mg/dL; Total Protein Urine Random 47 mg/dL; Ur Ttl Prot Creatinine Ratio 2.13 mg/mg (0-0.20)
[2024-12-08 22:18] LABS: Hemoglobin A1C 7.5 % (<5.7)
== END 2024-12-08 14:43 | disposition home or self-care (01) ==
PROVIDERS: Internal Medicine Nephrology; PCP Family Medicine; Visit Provider Nurse Practitioner
DX: E11.40 Type 2 diabetes mellitus with diabetic neuropathy, unspecified (principal); E78.2 Mixed hyperlipidemia; N17.9 Acute kidney failure, unspecified; I25.10 Atherosclerotic heart disease of native coronary artery without angina pectoris; R80.9 Proteinuria, unspecified; E11.29 Type 2 diabetes mellitus with other diabetic kidney complication; I12.9 Hypertensive chronic kidney disease with stage 1 through stage 4 chronic kidney disease, or unspecified chronic kidney disease; N18.9 Chronic kidney disease, unspecified
CPT/HCPCS: 36415; 80053; 80061; 82043; 82570; 83036; 84156; 85027

== ENCOUNTER 2025-01-04 12:22 | Outpatient (CLI) | payer MEDICARE, SELFPAY ==
[2025-01-04 13:28] LABS: INR 0.9
--- OUTSIDE RECORDS SUMMARY | 2025-01-04 14:08 | XMS_ITS | Clinical Summary ---
Author Organization [facility] Address [address] [place] [address] Phone Care Team Providers Care Distributing Clerk Name Role Phone Faheem Brady MD Primary Care Provider [phone] Allergies Active Allergy Reactions Criticality Noted Date [...] Active Lancet Devices (Simple Diagnostics Lancing Dev) [facility] [place] 06/12/2022 Active Pharmacist Choice Lancets [facility] 06/12/2022 Active Active Problems Problem Noted Date [...] Comments Blood Pressure 134/78 08/22/2022 10:15 AM ARC TRIMMER Pulse - - Temperature 36.1 C (96.9 F) 08/22/2022 10:15 AM ARC TRIMMER Respiratory Rate 18 08/22/2022 10:15 AM ARC TRIMMER Oxygen Saturation - - Inhaled Oxygen Concentration - - Weight 89.4 kg (197 lb) 08/22/2022 10:15 AM ARC TRIMMER Height 177.8 cm (5' 10 ) 08/22/2022 10:15 AM ARC TRIMMER Body Mass Index 28.27 08/22/2022 10:15 AM ARC TRIMMER Plan of Treatment Health Maintenance Due Date Last Done Comments Diabetic Foot Exam 1965 Ophthalmology Exam 1965 Influenza Vaccine (#1) 2024 Pneumococcal PPSV23/PCV13 65 + Years / High and Highest Risk Completed 04/04/2018, 11/14/2016 Care Teams Distributing Clerk Relationship Specialty Start Date End Date Faheem Brady MD PCP - General Family Medicine 08/22/22
--- OUTSIDE RECORDS SUMMARY | 2025-01-04 14:08 | XMS_ITS | Continuity of Care Document ---
Author Organization [facility] Address [address] [place] [address] Dr Osborn [address] [place] [phone] Phone Care Team Providers Care Cmm Inspector Name Role Phone Peter Felix Unavailable Unavailable [...] Copied on Encounter Office/outpat ient Visit, Est [facility], [address] [place] [address] [address], [place], [place], [id number], tel:[phone] [facility] [place] No Information 0 Krishcaron Peter. [address] [place] [address], [address], [place]. tel:[phone] Referring Provider: Peter silva, [address] [place], [place] [address]ate [place] [address], [place], [place], [facility]. tel:[phone] [facility], [address] [place] [address] [address], [place], [place], [id number], tel:[phone] [facility] [place] No Information 0 Clintonishnasamy Peter. [facility] 102, [place], [address], [place]. tel:[phone] Referring Provider: Peter silva, [address] [place] [address] 102, [place], [facility]. tel:[phone] [facility], [address] [place] [address] [address], [place], [place], [id number], tel:[phone] [facility] [place] No Information 0 Krishnasamy Peter. [address], [facility], [place]. tel:[phone] Office/outpat ient Visit, [facility] Eye [facility], [address] [place] [address] [address], [place], [place], [id number], tel:[phone] [facility] [place] No Information Mar-0 2-200 9 Krishnasamy Peter. [address] [place], [place] [address]ate [address], [facility], [place]. tel:[phone] Office/outpat ient Visit, [facility] Eye [facility], [address] [place] [address] [address], [place], [place], [id number], tel:[phone] SEC [facility] No Information 2 0-200 9 Krishnasamy Peter. [address] [place] [address], [facility], [place]. tel:[phone] Referring Provider: Peter silva, [address] [place], [place] [address]ate [address], [facility]. tel:[phone] [facility], [address] [place] [address] [address], [place], [place], [id number], tel:[phone] SEC [facility] No Information 2-200 9 Krishnasamy Peter. [address] [place] [address], [facility], [place]. tel:[phone] Referring Provider: Peter silva, [address] [place], [place] [address]ate [address], [facility]. tel:[phone] Office/outpat ient Visit, [facility], [address] [place] [address] [address], [place], [place], [id number], tel:[phone] [facility] [place] No Information 1-200 8 Krishnasamy Peter. [address] [place], [place] [address]ate [address], [address], [place]. tel:[phone] [facility], [address], [place], [place], [id number], [place] tel:[phone] [facility] No Information Andres-2 2-200 8 Krishnasamy Peter. 2421 [facility] 102, [place], [facility], [place]. tel:[phone] Referring Provider: Peter silva, 2421 [facility] [place] [address], [place], [facility]. tel:[phone] Office/outpat ient Visit, [facility], [address], [place], [place], [id number], [place] tel:[phone] [facility] No Information Parag-2 7-200 8 Krishnasamy Peter. 2421 [facility] 102, [place], [facility], [place]. tel:[phone] [facility], [address], [place], [place], [id number], [place] tel:[phone] [facility] No Information May-2 7-200 8 Krishnasamy Peter. [facility] 102, [place], [facility], [place]. tel:[phone] [facility], [address], [place], [place], [id number], [place] tel:[phone] [facility] No Information Oct-1 8-200 7 Mason Pal. [address] [place], [place], [facility], [place]. tel:[phone] Office[facility]outpat ient [facility], [facility], [address], [place], [place], [id number], [place] tel:[phone] [facility] No Information Sep-2 0-200 7 Mason Pal. [address] [place], [facility], [place]. tel:[phone] [facility], [address], [place], [place], [id number], [place] tel:[phone] [facility] No Information Parag-2 1-200 7 Mason Pal[address] [place], [facility], [place]. tel:[phone] Referring Provider: Lorenza Silva [address], [place], [facility]. tel:[phone] [facility], [address] [place] [address] [address], [place], [place], [id number], [place] tel:[phone] [facility] No Information Parag-1 4-200 7 Ange Valdez [address] , [address], [place], [facility], [place]. tel:[phone] [facility], [address], [place], [place], [id number], [place] tel:[phone] [facility] No Information May-1 7-200 7 Ange Valdez [address] , [address], [place], [facility], [place]. tel:[phone] [facility], [address], [place], [place], [id number], [place] tel:[phone] [facility] No Information May-1 6-200 7 Ange Valdez [address] , [address], [place], [facility], [place]. tel:[phone] [facility], [address], [place], [place], [id number], [place] tel:[phone] [facility] No Information May-1 0-200 7 Ange Britt. [address], [place], [address], [place]. tel:[phone] [facility], [address], [place], [place], [id number], [place] tel:[phone] [facility] No Information Apr-2 6-200 7 Mason Pal. [address] [place], [facility], [place]. tel:[phone] [facility], [address], [place], [place], [id number], [place] tel:[phone] [facility] No Information Dec-2 2-200 7 Mason Pal. [address] [place], [facility], [place]. tel:[phone] Office/outpat ient Visit, Est [facility], [address], [place], [place], [id number], [place] tel:[phone] [facility] No Information Feb-1 5-200 7 Mason Pal. [address] [place], [facility], [place]. tel:[phone] [facility], [address], [place], [place], [id number], [place] tel:[phone] [facility] No Information Feb-0 1-200 7 Mason Pal. [address] [place], [facility], [place]. tel:[phone] Referring Provider: Demarco Mills, [address] [place], [address]. tel:[phone] [facility], [address], [place], [place], [id number], [place] tel:[phone] [facility] No Information Duong-2 5-200 7 Mason Pal. [address] [place], [address], [place]. tel:[phone] Referring Provider: Demarco Mills, [address] [place], [address]. tel:[phone] [facility], [address] [facility] [address], [place], [place], [id number], [place] tel:[phone] [facility] No Information 7 Mason Pal. [address] [place], [address], [place]. tel:[phone] Family History Family Member Type Diagnosis Age At Onset No Information Payers Payer name Insurance type Covered alliance party ID Authoriza tion(s) No Information Social [...]
== END 2025-01-04 12:23 | disposition home or self-care (01) ==
LOC: ANHSURGERY 12:26
PROVIDERS: Anesthesiology; PCP Family Medicine; Visit Provider Urology
DX: Z01.818 Encounter for other preprocedural examination (principal); N17.9 Acute kidney failure, unspecified
CPT/HCPCS: 36415; 85610; 85730

== ENCOUNTER 2025-01-07 01:00 | Day surgery (SDC) | payer MEDICARE, SELFPAY ==
[2025-01-01 13:33] VITALS: BMI 26.2
--- NOTE | 2025-01-01 14:02 | PC.NURSE ---
Report to the Outpatient Waiting Room, entrance under the green pavilion located off [facility], at time ___1000am____ on date _01/07/25 . Planned Procedure Time: _1200pm .? Time changes happen often and if your time is changed the preop area will call you the afternoon before. - You and your visitor will be asked to self-screen and do not enter if you have any COVID symptoms. Please call surgeon if you need to reschedule. - A mask is optional within the hospital at this time. Patients may have clear liquids (water, carbonated beverages, clear teas, apple juice) until 3 hours prior to surgery with a maximum of 20 ounces. - No food from midnight until time of surgery and no smoking, or chewing tobacco (or any form of nicotine). No chewing gum, candy or mints. (0900am) Take only the following medications with a SIP of water on the morning of surgery: Metoprolol DO NOT STOP ANY OF YOUR OTHER PRESCRIPTION MEDICATIONS PRIOR TO SURGERY EXCEPT THE FOLLOWING Hold all vitamins and supplements for 3 days per anesthesiologist.Date to take last dose___01/03/25 Medications to discontinue per physician ____Baby Aspirin is 7 days prior to surgery per Dr Roldan. Date to take last dose____12/29/24 Please no make-up, nail senegalese, hairspray, perfume, deodorant, or body powder the day of surgery.? No jewelry (including any body piercings) or valuables the day of surgery, leave them at home.? Please take a shower or bath the night before, or the morning of, surgery with an antibacterial soap.? Wear comfortable, loose fitting clothing.? - Jewelry must be removed prior to entering the operating room.? Rings and piercings that are not removed may be cut off. - The hospital will not accept responsibility for valuables.? - Please leave all valuables, including medications, at home the day of surgery. If you are going home after surgery, a licensed catering truck driver must drive you home.? - NO public transportation without another adult if you receive anesthesia. - We recommend that an adult stay with you for 24 hours following discharge. - We also recommend that you do not drive, make important decision, drink alcoholic beverages, or take any drugs that were not prescribed by your health care provider for at least 24 hours after your discharge time. Follow any additional instructions given to you from your surgeon. Telephone instructions given to __Patient and asked if any additional questions and then verbalized understanding. Patient advised to call surgeon office or pre surgery nurse liaison [phone] if any additional questions.
--- NOTE | 2025-01-06 07:36 | P.HP_ITS ---
History of Present Illness History of Present Illness Consent: Risks, benefits, and alternatives have been discussed and questions answered. Patient agrees to proceed with procedure. Chief complaint: urethral stricture Narrative: Efrain Deal is a 69 year old male with chronic urinary retention and atonic bladder. Catheter placement recently difficult d/t urethral stricture. Review of Systems Review of Systems: All systems reviewed & are unremarkable except as noted in HPI and below PMFSH Past Medical History Medical History Urethral stricture History of UTI Diabetic retinopathy associated with controlled type 2 diabetes mellitus Multinodular goiter Type 2 diabetes mellitus with diabetic neuropathy, unspecified Prostatic hypertrophy CAD (coronary artery disease) Essential (primary) hypertension Mixed hyperlipidemia Surgical History Surgical History History of prostate surgery Family History Family History Sibling Diabetes mellitus Hypertension Family history of elevated blood lipids Father Family history of glaucoma, Onset Age: 90 Family history of elevated blood lipids, Onset Age: 90 Family history of cardiovascular disease, Onset Age: 90 Diabetes mellitus Hypertension Family history of dementia Mother Family history of malignant neoplasm of stomach, Onset Age: 78 Family history of dementia Social History Social History Smoking status: Former smoker Tobacco type: cigars Smoking end date: 10/14/89 Additional smoking assessment comments: smoked 2 cigars a day for 5 yrs Alcohol intake: never Drinks per week: 2 Substance use: never Do You Feel Safe in your Home?: Yes Lack of Transportation: No Lack of Food: Never True Current Housing: I Have Housing Concerned About Future Housing: No Difficulty Paying Gas/Electric Bills: No Difficulty Paying for Meds: No Currently Unemployed: No Education: High School Diploma/GED Difficulty w/ Childcare or Family Care: No Living arrangements: with family Additional living arrangements comments: Gender identity (if verbalized by the patient): Male Spiritual care concerns: No Meds Home Medications and Allergies Home Medications ?Medication ?Instructions ?Recorded ?Confirmed ?Type blood sugar diagnostic (Ultima #100 ea 12/18/22 01/05/25 Rx Test Strips) pen needle, diabetic 31 gauge x #120 ea 12/18/22 01/05/25 Rx 5/16 (1st Tier Unifine Pentips Plus) lancets 31 gauge #100 ea 04/29/23 01/05/25 Rx aspirin 81 mg tablet,delayed 81 mg PO .QOD 09/26/23 01/05/25 History release metoprolol tartrate 25 mg tablet 25 mg PO BID #200 tabs 03/10/24 01/05/25 Rx latanoprost 0.005 % eye drops 1 drp EACH EYE DAILY 04/21/24 01/05/25 History timolol maleate 0.5 % eye drops 1 drp EACH EYE DIRECTED 04/21/24 01/05/25 History blood-glucose meter,continuous #1 ea 08/31/24 01/05/25 Rx (Dexcom G7 Geochemical Laboratory Technician) blood-glucose sensor (Dexcom G7 #1 ea 09/28/24 01/05/25 Rx Sensor device) hydralazine 25 mg tablet 25 mg PO DAILY #90 tabs 10/15/24 01/05/25 Rx gabapentin 300 mg capsule 300 mg PO DAILY 11/13/24 01/05/25 History tamsulosin 0.4 mg capsule 0.4 mg PO HS 11/13/24 01/05/25 History simvastatin 40 mg tablet 40 mg PO DAILY #100 tabs 11/24/24 01/05/25 Rx empagliflozin 25 mg tablet 25 mg PO QAM #90 tabs 12/02/24 01/05/25 Rx (Jardiance) losartan 100 mg tablet 50 mg PO DAILY 01/01/25 01/05/25 History metformin 500 mg tablet,extended 500 mg PO DAILY 01/01/25 01/05/25 History release 24 hr glucagon 1 mg/0.2 mL subcutaneous 1 mg (0.2 mL) subcut ONCE #0.4 mL 01/05/25 01/05/25 Rx auto-injector (Gvoke HypoPen 2-Pack) glucose 4 gram chewable tablet 16 g (4 x 4 gram) PO Q15M PRN 01/05/25 01/05/25 Rx (Dex4 Glucose) hypoglycemia #60 tabs insulin glargine 100 unit/mL 40 unit subcut DAILY 01/05/25 01/05/25 History subcutaneous solution (Lantus U-100 Insulin) semaglutide 0.25 mg or 0.5 mg (2 0.5 mg (0.736 mL) subcut WEEKLY #3 01/05/25 01/05/25 Rx mg/3 mL) subcutaneous pen injector mL (Ozempic) vibegron 75 mg tablet (Gemtesa) 75 mg PO DAILY 01/05/25 01/05/25 History Allergies Allergy/AdvReac Type Severity Reaction Status Date / Time peanut Allergy Unknown Swelling Verified 01/05/25 10:58 of Lip/Tongue/Throat Sulfa (Sulfonamide Allergy Unknown Skin Verified 01/05/25 10:58 Antibiotics) Reaction codeine AdvReac Unknown felt wierd Verified 01/05/25 10:58 lisinopril AdvReac Unknown cough Verified 01/05/25 10:58 Exam Const: General: no acute distress Resp: Effort & Inspection: normal respiratory effort GI: Inspection: non-distended GI Palp: No abdominal tenderness and No Guarding due to palpation present (GI) Auscultation: normal bowel sounds Assessment and Plan Assessment and plan (1) Hydronephrosis: Code(s): N13.30 - Unspecified hydronephrosis Status: Acute (2) 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
--- OUTSIDE RECORDS SUMMARY | 2025-01-07 01:03 | XMS_ITS | Clinical Summary ---
Author Organization [facility] Address [address] [place] [id number] Phone Care Team Providers Care Senior Bioinformatics Specialist Name Role Phone Faheem Brady MD Primary Care Provider [phone] Allergies Active Allergy Reactions Criticality Noted Date [...] Active Lancet Devices (Simple Diagnostics Lancing Dev) [facility] 06/12/2022 Active Pharmacist Choice Lancets [facility] 06/12/2022 Active Active Problems [...] Comments Blood Pressure 134/78 08/22/2022 10:15 AM W[facility] Pulse - - Temperature 36.1 C (96.9 F) 08/22/2022 10:15 AM [facility] Respiratory Rate 18 08/22/2022 10:15 AM [facility] Oxygen Saturation - - Inhaled Oxygen Concentration - - Weight 89.4 kg (197 lb) 08/22/2022 10:15 AM WASH[facility] Height 177.8 cm (5' 10 ) 08/22/2022 10:15 AM WASH[facility] Body Mass Index 28.27 08/22/2022 10:15 AM WASHER [facility] Plan of Treatment Health Maintenance Due Date Last Done Comments Diabetic Foot Exam 1965 Ophthalmology Exam 1965 Influenza Vaccine (#1) 2024 Pneumococcal PPSV23/PCV13 65 + Years / High and Highest Risk Completed 04/04/2018, 11/14/2016 Care Teams Senior Bioinformatics Specialist Relationship Specialty Start Date End Date Faheem Brady MD PCP - General Family Medicine 08/22/22
--- OUTSIDE RECORDS SUMMARY | 2025-01-07 01:03 | XMS_ITS | Continuity of Care Document ---
Author Organization [facility] [facility] Address [address] [place] [address] Dr Os[address] [place] [phone] Phone Care Team Providers Care Staffing Mgr Name Role Phone Peter Felix Unavailable Unavailable [...] Copied on Encounter Office/outpat ient Visit, Est [facility], [address] [place] [address] [address], [place], [place], [id number], tel:[phone] [facility] [place] No Information 0 Krishcaron Peter. [address] [place] [address], [address], [place]. tel:[phone] Referring Provider: Peter silva, [address] [place], [place] [address]ate [place] [address], [place], [place], [facility]. tel:[phone] [facility], [address] [place] [address] [address], [place], [place], [address], tel:[phone] [facility] [place] No Information 0 Clintonishnasamy Peter. [facility] [facility] [address], [place], [address], [place]. tel:[phone] Referring Provider: Peter silva, [address] [place] [address] 102, [place], [facility]. tel:[phone] [facility], [address] [place] [address] [address], [place], [place], [id number], tel:[phone] [facility] [place] No Information 0 Krishnasamy Peter. [address], [facility], [place]. tel:[phone] Office/outpat ient Visit, [facility], [address] [place] [address] [address], [place], [place], [id number], tel:[phone] [facility] [place] No Information Mar-0 2-200 9 Krishnasamy Peter. [address] [place], [place] [address]ate [address], [facility], [place]. tel:[phone] Office/outpat ient Visit, [facility], [address] [place] [address] [address], [place], [place], [id number], tel:[phone] [facility] No Information 2 0-200 9 Krishnasamy Peter. [address] [place] [address], [facility], [place]. tel:[phone] Referring Provider: Peter silva, [address] [place], [place] [address]ate [address], [facility]. tel:[phone] [facility], [address] [place] [address] [address], [place], [place], [address], tel:[phone] SEC [facility] No Information 2-200 9 Krishnasamy Peter. [address] [place] [address], [facility], [place]. tel:[phone] Referring Provider: Peter silva, [address] [place], [place] [address]ate [address], [facility]. tel:[phone] Office/outpat ient Visit, [facility], [address] [place] [address] [address], [place], [place], [id number], tel:[phone] [facility] [place] No Information 1-200 8 Krishnasamy Peter. [address] [place], [place] [address]ate [address], [address], [place]. tel:[phone] [facility], [facility], [address], [place], [place], [address], [place] tel:[phone] SEC [facility] No Information Andres-2 2-200 8 Krishnasamy Peter. 2421 [facility] 102, [place], [facility], [place]. tel:[phone] Referring Provider: Peter silva, [address] [facility] [place] [address], [place], [facility]. tel:[phone] Office/outpat ient Visit, [facility], [address], [place], [place], [id number], [place] tel:[phone] [facility] No Information Parag-2 7-200 8 Krishnasamy Peter. [address] [facility] 102, [place], [facility], [place]. tel:[phone] [facility], [address], [place], [place], [address], [place] tel:[phone] SEC [facility] No Information May-2 7-200 8 Krishnasamy Peter. [facility] 102, [place], [facility], [place]. tel:[phone] [facility], [address], [place], [place], [address], [place] tel:[phone] [facility] No Information Oct-1 8-200 [address] [place], [place], [facility], [place]. tel:[phone] Office[facility]outpat ient [facility], [facility], [address], [place], [place], [address], [place] tel:[phone] [facility] No Information Sep-2 0-200 7 [address] [place], [facility], [place]. tel:[phone] [facility], [address], [place], [place], [address], [place] tel:[phone] [facility] No Information Parag-2 1-200 7 [address] [place], [facility], [place]. tel:[phone] Referring Provider: Lorenza Silva [address], [place], [facility]. tel:[phone] [facility], [address] [place] [address] [address], [place], [place], [address], [place] tel:[phone] [facility] No Information Parag-1 4-200 7 Ange Valdez [address] , [address], [place], [facility], [place]. tel:[phone] [facility], [address], [place], [place], [address], [place] tel:[phone] [facility] No Information May-1 7-200 7 Ange Valdez [address] , [address], [place], [facility], [place]. tel:[phone] [facility], [address], [place], [place], [address], [place] tel:[phone] [facility] No Information May-1 6-200 7 Ange Valdez [address] , [address], [place], [facility], [place]. tel:[phone] [facility], [address], [place], [place], [address], [place] tel:[phone] [facility] No Information May-1 0-200 7 Ange Britt. [address], [place], [address], [place]. tel:[phone] [facility], [address], [place], [place], [address], [place] tel:[phone] [facility] No Information Apr-2 6-200 7 [address] [place], [facility], [place]. tel:[phone] [facility], [address], [place], [place], [address], [place] tel:[phone] [facility] No Information Dec-2 2-200 7 [address] [place], [facility], [place]. tel:[phone] Office/outpat ient Visit, Est [facility], [address], [place], [place], [address], [place] tel:[phone] [facility] No Information Feb-1 5-200 7 [address] [place], [facility], [place]. tel:[phone] [facility], [address], [place], [place], [address], [place] tel:[phone] [facility] No Information Feb-0 1-200 7 [address] [place], [facility], [place]. tel:[phone] Referring Provider: Demarco Mills, [address] [place], [address]. tel:[phone] [facility], [address], [place], [place], [address], [place] tel:[phone] [facility] No Information Duong-2 5-200 7 [address] [place], [address], [place]. tel:[phone] Referring Provider: Demarco Mills, [address] [place], [address]. tel:[phone] [facility], [address] [facility] [address], [place], [place], [address], [place] tel:[phone] [facility] No Information 7 [address] [place], [address], [place]. tel:[phone] Family History Family Member Type Diagnosis Age [...]
--- NOTE | 2025-01-07 06:17 | WPDHPUPDATE1 ---
History and Physical Update Update Date/Time: 01/07/25 06:17 History and Physical has been reviewed, including an updated exam of the patient. There are NO changes in the patient's condition. Risks, benefits, and alternatives have been discussed and questions answered. Patient agrees to proceed with procedure.
[2025-01-07 07:20] VITALS: BP 183/83; PULSE 73; RESP 18; TEMP 36.1; O2SAT 100
[2025-01-07 07:45] VITALS: BP 165/77
[2025-01-07] MEDS: LACTATED RINGERS 1,000 ML 30 ML IV CONT ×2 (07:50→10:00)
[2025-01-07 07:56] LABS: Glucose Point of Care 174 mg/dl (65-105)
--- NOTE | 2025-01-07 08:37 | WPDANESEPPF ---
Anes - Initial Pre Proc Eval Procedure: Operation Date: 01/07/25 09:30 Proposed Procedures p Cystoscopy, Urethral Dilatation - Jamie Roldan MD Date/Time: 01/07/25 08:37 Surgeon: Jamie Roldan MD Pre Op Diagnosis: urethral stricture Patient Data Age: 69 Gender: M Height: 1.78 m Weight: 83.5 kg Last Vital Signs Temp 97.0 F L 01/07/25 07:20 Pulse 73 01/07/25 07:20 Resp 18 01/07/25 07:20 BP 165/77 H 01/07/25 07:45 Pulse Ox 100 01/07/25 07:20 O2 Del Method Room Air 01/07/25 07:20 Allergies Allergy/AdvReac Type Severity Reaction Status Date / Time peanut Allergy Unknown Swelling Verified 01/07/25 08:00 of Lip/Tongue/Throat Sulfa (Sulfonamide Allergy Unknown Skin Verified 01/07/25 08:00 Antibiotics) Reaction codeine AdvReac Unknown felt wierd Verified 01/07/25 08:00 lisinopril AdvReac Unknown cough Verified 01/07/25 08:00 Home Medications ?Medication ?Instructions ?Recorded ?Confirmed ?Type blood sugar diagnostic (Ultima #100 ea 12/18/22 01/05/25 Rx Test Strips) pen needle, diabetic 31 gauge x #120 ea 12/18/22 01/05/25 Rx 5/16 (1st Tier Unifine Pentips Plus) lancets 31 gauge #100 ea 04/29/23 01/05/25 Rx aspirin 81 mg tablet,delayed 81 mg PO .QOD 09/26/23 01/07/25 History release metoprolol tartrate 25 mg tablet 25 mg PO BID #200 tabs 03/10/24 01/07/25 Rx latanoprost 0.005 % eye drops 1 drp EACH EYE DAILY 04/21/24 01/07/25 History timolol maleate 0.5 % eye drops 1 drp EACH EYE DIRECTED 04/21/24 01/07/25 History blood-glucose meter,continuous #1 ea 08/31/24 01/05/25 Rx (Dexcom G7 [employer]ist[employer]) blood-glucose sensor (Dexcom G7 #1 ea 09/28/24 01/05/25 Rx Sensor device) hydralazine 25 mg tablet 25 mg PO DAILY #90 tabs 10/15/24 01/07/25 Rx gabapentin 300 mg capsule 300 mg PO DAILY 11/13/24 01/07/25 History tamsulosin 0.4 mg capsule 0.4 mg PO HS 11/13/24 01/07/25 History simvastatin 40 mg tablet 40 mg PO DAILY #100 tabs 11/24/24 01/07/25 Rx empagliflozin 25 mg tablet 25 mg PO QAM #90 tabs 12/02/24 01/07/25 Rx (Jardiance) losartan 100 mg tablet 50 mg PO DAILY 01/01/25 01/07/25 History metformin 500 mg tablet,extended 500 mg PO DAILY 01/01/25 01/07/25 History release 24 hr glucagon 1 mg/0.2 mL subcutaneous 1 mg (0.2 mL) subcut ONCE #0.4 mL 01/05/25 01/05/25 Rx auto-injector (Gvoke HypoPen 2-Pack) glucose 4 gram chewable tablet 16 g (4 x 4 gram) PO Q15M PRN 01/05/25 01/05/25 Rx (Dex4 Glucose) hypoglycemia #60 tabs insulin glargine 100 unit/mL 40 unit subcut DAILY 01/05/25 01/07/25 History subcutaneous solution (Lantus U-100 Insulin) semaglutide 0.25 mg or 0.5 mg (2 0.5 mg (0.736 mL) subcut WEEKLY #3 01/05/25 01/07/25 Rx mg/3 mL) subcutaneous pen injector mL (Ozempic) vibegron 75 mg tablet (Gemtesa) 75 mg PO DAILY 01/05/25 01/07/25 History Laboratory Tests 01/07/25 07:54 POC Capillary Glucose 174 H mg/dl (65-105) Patient hx anesthesia problems: none Family hx anesthesia problems: none Results Review: All pre-operative results and documents have been reviewed as part of the pre-operative evaluation. [facility] Past Medical History Medical History Urethral stricture History of UTI Diabetic retinopathy associated with controlled type 2 diabetes mellitus Multinodular goiter Type 2 diabetes mellitus with diabetic neuropathy, unspecified Prostatic hypertrophy CAD (coronary artery disease) Essential (primary) hypertension Mixed hyperlipidemia Surgical History Surgical History History of prostate surgery Family History Family History Sibling Diabetes mellitus Hypertension Family history of elevated blood lipids Father Family history of glaucoma, Onset Age: 90 Family history of elevated blood lipids, Onset Age: 90 Family history of cardiovascular disease, Onset Age: 90 Diabetes mellitus Hypertension Family history of dementia Mother Family history of malignant neoplasm of stomach, Onset Age: 78 Family history of dementia Social History Social History Smoking status: Former smoker Tobacco type: cigars Smoking end date: 10/14/89 Additional smoking assessment comments: smoked 2 cigars a day for 5 yrs Alcohol intake: never Drinks per week: 2 Substance use: never Do You Feel Safe in your Home?: Yes Lack of Transportation: No Lack of Food: Never True Current Housing: I Have Housing Concerned About Future Housing: No Difficulty Paying Gas/Electric Bills: No Difficulty Paying for Meds: No Currently Unemployed: No Education: High School Diploma/GED Difficulty w/ Childcare or Family Care: No Living arrangements: with family Additional living arrangements comments: Gender identity (if verbalized by the patient): Male Spiritual care concerns: No Anes - Eval Final PreProcedure Day of Procedure 01/07/25 08:37 Patient weight: normal Lungs: normal air movement Airway: Mallampati scale class II Neurological: alert and oriented Last oral intake: >/= 8 hours ASA classification: III Emergent: no Anesthetic plan: proceed Anesthesia type and monitoring: general GIVS and standard monitoring Results Review: All pre-operative results and documents have been reviewed as part of the pre-operative evaluation. HTN, hyperlipidemia, DM fsbs 174, hx of CABG 2012 and doing excellent since, pt walks 4 miles/day, no cp or sob. Informed Consent: The patient's anesthetic plan and its attendant risks and benefits were discussed with the patient/family/POA. Questions were solicited and answers provided to the satisfaction of the patient/family/POA.
--- NOTE | 2025-01-07 09:03 | P.PNAN_ITS ---
Anes - Initial Pre Proc Eval Procedure: Operation Date: 01/07/25 09:30 Proposed Procedures p Cystoscopy, Urethral Dilatation - Jamie Roldan MD Date/Time: 01/07/25 09:03 Surgeon: Jamie Roldan MD Pre Op Diagnosis: urethral stricture Patient Data Age: 69 Gender: M Height: 1.78 m Weight: 83.5 kg Last Vital Signs Temp 97.0 F L 01/07/25 07:20 Pulse 73 01/07/25 07:20 Resp 18 01/07/25 07:20 BP 165/77 H 01/07/25 07:45 Pulse Ox 100 01/07/25 07:20 O2 Del Method Room Air 01/07/25 07:20 Allergies Allergy/AdvReac Type Severity Reaction Status Date / Time peanut Allergy Unknown Swelling Verified 01/07/25 08:00 of Lip/Tongue/Throat Sulfa (Sulfonamide Allergy Unknown Skin Verified 01/07/25 08:00 Antibiotics) Reaction codeine AdvReac Unknown felt wierd Verified 01/07/25 08:00 lisinopril AdvReac Unknown cough Verified 01/07/25 08:00 Home Medications ?Medication ?Instructions ?Recorded ?Confirmed ?Type blood sugar diagnostic (Ultima #100 ea 12/18/22 01/05/25 Rx Test Strips) pen needle, diabetic 31 gauge x #120 ea 12/18/22 01/05/25 Rx 5/16 (1st Tier Unifine Pentips Plus) lancets 31 gauge #100 ea 04/29/23 01/05/25 Rx aspirin 81 mg tablet,delayed 81 mg PO .QOD 09/26/23 01/07/25 History release metoprolol tartrate 25 mg tablet 25 mg PO BID #200 tabs 03/10/24 01/07/25 Rx latanoprost 0.005 % eye drops 1 drp EACH EYE DAILY 04/21/24 01/07/25 History timolol maleate 0.5 % eye drops 1 drp EACH EYE DIRECTED 04/21/24 01/07/25 History blood-glucose meter,continuous #1 ea 08/31/24 01/05/25 Rx (Dexcom G7 Apprentice Electrician) blood-glucose sensor (Dexcom G7 #1 ea 09/28/24 01/05/25 Rx Sensor device) hydralazine 25 mg tablet 25 mg PO DAILY #90 tabs 10/15/24 01/07/25 Rx gabapentin 300 mg capsule 300 mg PO DAILY 11/13/24 01/07/25 History tamsulosin 0.4 mg capsule 0.4 mg PO HS 11/13/24 01/07/25 History simvastatin 40 mg tablet 40 mg PO DAILY #100 tabs 11/24/24 01/07/25 Rx empagliflozin 25 mg tablet 25 mg PO QAM #90 tabs 12/02/24 01/07/25 Rx (Jardiance) losartan 100 mg tablet 50 mg PO DAILY 01/01/25 01/07/25 History metformin 500 mg tablet,extended 500 mg PO DAILY 01/01/25 01/07/25 History release 24 hr glucagon 1 mg/0.2 mL subcutaneous 1 mg (0.2 mL) subcut ONCE #0.4 mL 01/05/25 01/05/25 Rx auto-injector (Gvoke HypoPen 2-Pack) glucose 4 gram chewable tablet 16 g (4 x 4 gram) PO Q15M PRN 01/05/25 01/05/25 Rx (Dex4 Glucose) hypoglycemia #60 tabs insulin glargine 100 unit/mL 40 unit subcut DAILY 01/05/25 01/07/25 History subcutaneous solution (Lantus U-100 Insulin) semaglutide 0.25 mg or 0.5 mg (2 0.5 mg (0.736 mL) subcut WEEKLY #3 01/05/25 01/07/25 Rx mg/3 mL) subcutaneous pen injector mL (Ozempic) vibegron 75 mg tablet (Gemtesa) 75 mg PO DAILY 01/05/25 01/07/25 History Laboratory Tests 01/07/25 07:54 POC Capillary Glucose 174 H mg/dl (65-105) Patient hx anesthesia problems: none Family hx anesthesia problems: none Results Review: All pre-operative results and documents have been reviewed as part of the pre- operative evaluation. [facility] Past Medical History Medical History Urethral stricture History of UTI Diabetic retinopathy associated with controlled type 2 diabetes mellitus Multinodular goiter Type 2 diabetes mellitus with diabetic neuropathy, unspecified Prostatic hypertrophy CAD (coronary artery disease) Essential (primary) hypertension Mixed hyperlipidemia Surgical History Surgical History History of prostate surgery Family History Family History Sibling Diabetes mellitus Hypertension Family history of elevated blood lipids Father Family history of glaucoma, Onset Age: 90 Family history of elevated blood lipids, Onset Age: 90 Family history of cardiovascular disease, Onset Age: 90 Diabetes mellitus Hypertension Family history of dementia Mother Family history of malignant neoplasm of stomach, Onset Age: 78 Family history of dementia Social History Social History Smoking status: Former smoker Tobacco type: cigars Smoking end date: 10/14/89 Additional smoking assessment comments: smoked 2 cigars a day for 5 yrs Alcohol intake: never Drinks per week: 2 Substance use: never Do You Feel Safe in your Home?: Yes Lack of Transportation: No Lack of Food: Never True Current Housing: I Have Housing Concerned About Future Housing: No Difficulty Paying Gas/Electric Bills: No Difficulty Paying for Meds: No Currently Unemployed: No Education: High School Diploma/GED Difficulty w/ Childcare or Family Care: No Living arrangements: with family Additional living arrangements comments: Gender identity (if verbalized by the patient): Male Spiritual care concerns: No Anes - Eval Final PreProcedure Day of Procedure 01/07/25 09:03 Patient weight: overweight Lungs: normal air movement Airway: Mallampati scale class II and special considerations (Missing several teeth post aspect. ) Neurological: alert and oriented Last oral intake: >/= 8 hours ASA classification: III Emergent: no Anesthetic plan: proceed Anesthesia type and monitoring: general GIVS and standard monitoring Results Review: All pre-operative results and documents have been reviewed as part of the pre- operative evaluation. HTN, hyperlipidemia, DM fsbs 174, hx of CABG 2012 and doing well since, walks 4 miles/day most days, no cp or sob. Informed Consent: The patient's anesthetic plan and its attendant risks and benefits were discussed with the patient/family/POA. Questions were solicited and answers provided to the satisfaction of the patient/family/POA.
[2025-01-07] MEDS: ceFAZolin 2 GM/D5W 50 ML 2 GM/50 ML BAG IVPB (09:08)
[2025-01-07] MEDS: LIDOCAINE 2% GEL UROJET 10 ML PKG MUCOUS MEM (09:13)
[2025-01-07 09:38] VITALS: BP 158/76; PULSE 73; RESP 16; O2SAT 98
--- NOTE | 2025-01-07 09:42 | W.PM.PROC2 ---
Procedure Note - Detailed Date of Procedure 01/07/25 Pre-op Diagnosis Urethral stricture Post-op Diagnosis Same Procedure Performed Cystoscopy, urethral dilatation Surgeon Jamie Roldan MD Anesthesia General Description of Procedure Patient is brought to the operative suite was prepped draped in routine sterile fashion while in dorsal lithotomy position after the uneventful induction of general LMA anesthetic. 2% xylocaine jelly was introduced intraurethrally and cystoscopy was undertaken with a 19 F rigid cystoscope. He has a small caliber urethra throughout this particularly narrow in the fossa navicularis. I dilated from 16 F to 26 F with Shelton sounds. I replaced an 18 F urethral catheter to drainage. Drains No Pathology None sent Condition Stable
[2025-01-07 10:00] VITALS: BP 159/75; PULSE 68; O2SAT 98
[2025-01-07 10:00] LABS: Glucose Point of Care 156 mg/dl (65-105)
[2025-01-07] MEDS: oxyCODONE HCL (*CRX) 5 MG TAB IR PO (10:23)
[2025-01-07 10:30] VITALS: BP 175/72; PULSE 65
[2025-01-07 10:55] VITALS: BP 162/68; PULSE 61
== END 2025-01-07 11:14 | disposition home or self-care (01) ==
PROVIDERS: PCP Family Medicine; Visit Provider Urology
PROC: 0T7D8ZZ Dilation of Urethra, Via Natural or Artificial Opening Endoscopic (ICD-10-PCS; CPT 52281; principal; 2025-01-07 09:30)
DX: N13.30 Unspecified hydronephrosis (principal); N31.2 Flaccid neuropathic bladder, not elsewhere classified; R33.9 Retention of urine, unspecified; I10 Essential (primary) hypertension; E78.2 Mixed hyperlipidemia; E11.319 Type 2 diabetes mellitus with unspecified diabetic retinopathy without macular edema; E11.40 Type 2 diabetes mellitus with diabetic neuropathy, unspecified; I25.10 Atherosclerotic heart disease of native coronary artery without angina pectoris; Z98.890 Other specified postprocedural states; Z79.82 Long term (current) use of aspirin; Z79.84 Long term (current) use of oral hypoglycemic drugs; Z79.4 Long term (current) use of insulin; Z79.85 Long-term (current) use of injectable non-insulin antidiabetic drugs; Z87.891 Personal history of nicotine dependence; Z87.448 Personal history of other diseases of urinary system; Z80.0 Family history of malignant neoplasm of digestive organs; Z82.49 Family history of ischemic heart disease and other diseases of the circulatory system
CPT/HCPCS: 52281; 36415; 82948; 85610; 85730; A9270; J0690; J2003; J2704; J3010; J7120

== ENCOUNTER 2025-01-11 10:35 | Outpatient (CLI) | payer MEDICARE, SELFPAY ==
--- OUTSIDE RECORDS SUMMARY | 2025-01-11 11:56 | XMS_ITS | Clinical Summary ---
Author Organization [facility] Address [address] [place] [id number] Phone Care Team Providers Care Flare Worker Name Role Phone Faheem Brady MD Primary Care Provider [phone] Allergies Active Allergy Reactions Criticality Noted Date [...] Comments Blood Pressure 134/78 08/22/2022 10:15 AM MAKE UP ARTIST Pulse - - Temperature 36.1 C (96.9 F) 08/22/2022 10:15 AM MAKE UP ARTIST Respiratory Rate 18 08/22/2022 10:15 AM MAKE UP ARTIST Oxygen Saturation - - Inhaled Oxygen Concentration - - Weight 89.4 kg (197 lb) 08/22/2022 10:15 AM MAKE UP ARTIST Height 177.8 cm (5' 10 ) 08/22/2022 10:15 AM MAKE UP ARTIST Body Mass Index 28.27 08/22/2022 10:15 AM MAKE UP ARTIST Plan of Treatment Health Maintenance Due Date Last Done Comments Diabetic Foot Exam 1965 Ophthalmology Exam 1965 Influenza Vaccine (#1) 2024 Pneumococcal PPSV23/PCV13 65 + Years / High and Highest Risk Completed 04/04/2018, 11/14/2016 Care Teams Flare Worker Relationship Specialty Start Date End Date Faheem Brady MD PCP - General Family Medicine 08/22/22
--- OUTSIDE RECORDS SUMMARY | 2025-01-11 11:56 | XMS_ITS | Continuity of Care Document ---
Author Organization [facility] Address [address] [place] [address] Dr [address] [place] [phone] Phone Care Team Providers Care Pharmacist Per Diem Name Role Phone Peter Felix Unavailable Unavailable [...] Copied on Encounter Office/outpat ient Visit, [facility], [address] [place] [address] [address], [place], [place], [id number], tel:[phone] [facility] [place] No Information 0 Krishcaron Peter. [address] [place] [address], [address], [place]. tel:[phone] Referring Provider: Peter silva, [address] [place], [place] [address]ate [place] [address], [place], [place], [facility]. tel:[phone] [facility], [id number] [place] [address] [address], [place], [place], [id number], tel:[phone] [facility] [place] No Information 0 Clintonishnasamy Peter. [facility] 102, [place], [address], [place]. tel:[phone] Referring Provider: Peter silva, [address] [place] [address] [address], [place], [place], [facility]. tel:[phone] [facility], [address] [place] [address] [address], [place], [place], [id number], tel:[phone] [facility] [place] No Information 0 Krishnasamy Peter. [address], [facility], [place]. tel:[phone] Office/outpat ient Visit, [facility], [address] [place] [address] [address], [place], [place], [id number], tel:[phone] [facility] [place] No Information Mar-0 2-200 9 Krishnasamy Peter. [address] [place], [place] [address]ate [address], [facility], [place]. tel:[phone] Office/outpat ient Visit, [facility], [address] [place] [address] [address], [place], [place], [id number], tel:[phone] [facility] No Information 2 0-200 9 Krishnasamy Peter. [address] [place] [address], [facility], [place]. tel:[phone] Referring Provider: Peter silva, [address] [place], [place] [address]ate [address], [facility]. tel:[phone] [facility], [address] [place] [address] [address], [place], [place], [id number], tel:[phone] SEC [facility] No Information 2-200 9 Krishnasamy Peter. [address] [place] [address], [facility], [place]. tel:[phone] Referring Provider: Peter silva, [address] [place], [place] [address]ate [address], [facility]. tel:[phone] Office/outpat ient Visit, [facility], [address] [place] [address] [address], [place], [place], [id number], tel:[phone] [facility] [place] No Information 1-200 8 Krishnasamy Peter. [address] [place], [place] [address], [address], [place]. tel:[phone] Office/outpat ient Visit, [facility], [address], [place], [place], [id number], [place] tel:[phone] [facility] No Information Andres-2 2-200 8 Krishnasamy Peter. 2421 [facility] 102, [place], [facility], [place]. tel:[phone] Referring Provider: Peter silva, [address] [facility] [place] [address], [place], [facility]. tel:[phone] Office/outpat ient Visit, [facility], [address], [place], [place], [id number], [place] tel:[phone] [facility] No Information Parag-2 7-200 8 Krishnasamy Peter. 2421 [facility] 102, [place], [facility], [place]. tel:[phone] [facility], [address], [place], [place], [id number], [place] tel:[phone] [facility] No Information May-2 7-200 8 Krishnasamy Peter. [facility] 102, [place], [facility], [place]. tel:[phone] [facility], [address], [place], [place], [id number], [place] tel:[phone] [facility] No Information Oct-1 8-200 7 Mason Pal[address], [place], [facility], [place]. tel:[phone] Office/outpat ient Visit, [facility], [address], [place], [place], [id number], [place] tel:[phone] [facility] No Information Sep-2 0-200 7 [address], [place], [facility], [place]. tel:[phone] [facility], [address], [place], [place], [id number], [place] tel:[phone] [facility] No Information Parag-2 1-200 7 [address], [place], [facility], [place]. tel:[phone] Referring Provider: Lorenza Silva [address], [place], [facility]. tel:[phone] [facility], [address] [place] [address] [address], [place], [place], [id number], [place] tel:[phone] [facility] No Information Parag-1 4-200 7 Ange Valdez [address] , [address], [place], [facility], [place]. tel:[phone] [facility], [address], [place], [place], [id number], [place] tel:[phone] [facility] No Information May-1 7-200 7 Ange Valdez [address] , [address], [place], [facility], [place]. tel:[phone] [facility], [address], [place], [place], [id number], [place] tel:[phone] [facility] No Information May-1 6-200 7 Ange Valdez [address] , [address], [place], [facility], [place]. tel:[phone] [facility], [address], [place], [place], [id number], [place] tel:[phone] [facility] No Information May-1 0-200 7 Ange Britt. [address], [place], [address], [place]. tel:[phone] [facility], [address], [place], [place], [id number], [place] tel:[phone] [facility] No Information Apr-2 6-200 7 [address], [place], [facility], [place]. tel:[phone] [facility], [address], [place], [place], [id number], [place] tel:[phone] [facility] No Information Dec-2 2-200 7 [address], [place], [facility], [place]. tel:[phone] Office/outpat ient Visit, [facility], [address], [place], [place], [id number], [place] tel:[phone] [facility] No Information Feb-1 5-200 7 [address], [place], [facility], [place]. tel:[phone] [facility], [address], [place], [place], [id number], [place] tel:[phone] [facility] No Information Feb-0 1-200 7 [address], [place], [facility], [place]. tel:[phone] Referring Provider: Demarco Mills, [address] [place], [address]. tel:[phone] [facility], [address], [place], [place], [address], [place] tel:[phone] [facility] No Information Duong-2 5-200 7 [address] [place], [address], [place]. tel:[phone] Referring Provider: Demarco Mills, [address] [place], [address]. tel:[phone] [facility], [address] [facility] 150, [place], [place], [id number], [place] tel:[phone] [facility] No Information 7 Mason [address] [place], [address], [place]. tel:[phone] Family History Family Member Type Diagnosis Age [...]
[2025-01-11 13:43] LABS: Hematocrit 42.4 % (42.0-52.0); Hemoglobin 13.4 g/dL (14.0-18.0); Mean Corpuscular HGB Conc 31.6 g/dl (32-36); Mean Corpuscular Hemoglobin 30.9 pg (26-34); Mean Corpuscular Volume 97.7 fl (80-100); Mean Platelet Volume 10.4 fl (7.4-10.4); Platelet Count Result 165 k/mm3 (150-375); Red Blood Count 4.34 M/mm3 (4.6-6.20); Red Cell Distribution Width 12.1 % (11.5-14.5); White Blood Count 5.6 K/mm3 (4.5-10.0)
[2025-01-11 14:08] LABS: Alanine Aminotransferase 22 U/L (6-50); Albumin Level 3.5 g/dL (3.5-5.1); Alkaline Phosphatase 122 U/L (38-126); Anion Gap 8 mmol/L (4-12); Aspartate Amino Transferase 29 U/L (17-59); Bilirubin,Total 0.2 mg/dL (0.2-1.3); Blood Urea Nitrogen 39 mg/dL (9-20); Calcium 8.6 mg/dL (8.4-10.2); Carbon Dioxide 25 mmol/L (22-30); Chloride 104 mmol/L (98-107); Estimated Glomerular Filt Rate 51; Glucose 150 mg/dL (65-110); Potassium 4.5 mmol/L (3.4-5.0); Sodium 137 mmol/L (137-145)
[2025-01-11 14:15] LABS: Creatinine Urine 30.9 mg/dL
[2025-01-11 14:17] LABS: Free T4 Free Thyroxine 1.06 ng/dL (0.78-2.19); Vitamin D 25 Hydroxy 25.2 ng/mL
[2025-01-11 14:26] LABS: Cholesterol 110 mg/dL (0-200); HDL Direct 32 mg/dL; Triglycerides 301 mg/dL (<150)
[2025-01-11 14:37] LABS: LDL Cholesterol Direct 45 mg/dL
[2025-01-11 14:40] LABS: MALB Creatinine Ratio 758.9 mg/g (0-30); Microalbumin Urine Random 234.5 mg/L (0-16.7)
[2025-01-11 14:45] LABS: Hemoglobin A1C 7.7 % (<5.7)
[2025-01-11 15:02] LABS: Thyroid Stimulating Hormone 0.053 uIU/mL (0.465-4.680)
== END 2025-01-11 10:36 | disposition home or self-care (01) ==
PROVIDERS: Nurse Practitioner Family; PCP Family Medicine; Visit Provider Nurse Practitioner
DX: E78.2 Mixed hyperlipidemia (principal); I10 Essential (primary) hypertension; E11.40 Type 2 diabetes mellitus with diabetic neuropathy, unspecified; E04.2 Nontoxic multinodular goiter; E11.319 Type 2 diabetes mellitus with unspecified diabetic retinopathy without macular edema; E11.65 Type 2 diabetes mellitus with hyperglycemia; Z79.899 Other long term (current) drug therapy; R79.89 Other specified abnormal findings of blood chemistry
CPT/HCPCS: 36415; 80053; 80061; 82043; 82306; 82607; 83036; 84439; 84443; 85027

== ENCOUNTER 2025-02-23 10:08 | Outpatient (CLI) | payer MEDICARE, SELFPAY ==
--- OUTSIDE RECORDS SUMMARY | 2025-02-23 10:21 | XMS_ITS | Continuity of Care Document ---
Author Organization Virtual [facility] Address [address] [place] [address] Dr Os[address] [place] [phone] Phone Care Team Providers Care Ore Washer Name Role Phone Peter Felix Unavailable Unavailable [...] Copied on Encounter Office/outpat ient Visit, Est [facility], [address] [place] [address] [address], [place], [place], [id number], tel:[phone] [facility] [place] No Information 0 Krishcaron Peter. [address] [place] [address], [address], [place]. tel:[phone] Referring Provider: Peter silva, [address] [place], [place] [address]ate [place] [address], [place], [place], [facility]. tel:[phone] [facility], [address] [place] [address] [address], [place], [place], [id number], tel:[phone] SEC [facility] [place] No Information 0 Clintonishnasamy Peter. [facility] 102, [place], [address], [place]. tel:[phone] Referring Provider: Peter silva, [address] [place] [address], [place], [place], [facility]. tel:[phone] [facility], [address] [place] [address] [address], [place], [place], [id number], tel:[phone] SEC [facility] [place] No Information 0 Krishnasamy Peter. [address], [facility], [place]. tel:[phone] Office/outpat ient Visit, [facility], [address] [place] [address] [address], [place], [place], [id number], tel:[phone] SEC [facility] [place] No Information Mar-0 2-200 9 Krishnasamy Peter. [address] [place], [place] [address]ate [address], [facility], [place]. tel:[phone] Office/outpat ient Visit, [facility], [address] [place] [address] [address], [place], [place], [id number], tel:[phone] SEC [facility] No Information 2 0-200 9 Krishnasamy Peter. [address] [place] [address], [facility], [place]. tel:[phone] Referring Provider: Peter silva, [address] [place], [place] [address], [facility]. tel:[phone] [facility], [address] [place] [address] [address], [place], [place], [id number], tel:[phone] [facility] No Information 2-200 9 Krishnasamy Peter. [address] [place] [address], [facility], [place]. tel:[phone] Referring Provider: Peter silva, [address] [place], [place] [address], [facility]. tel:[phone] Office/outpat ient Visit, [facility], [address] [place] [address] [address], [place], [place], [id number], tel:[phone] SEC [facility] [place] No Information 1-200 8 Krishnasamy Peter. [address] [place], [place] [address], [address], [place]. tel:[phone] [facility]pat [facility], [address], [place], [place], [id number], [place] tel:[phone] [facility] No Information Andres-2 2-200 8 Krishnasamy Peter. 2421 [facility] 102, [place], [facility], [place]. tel:[phone] Referring Provider: Peter silva, 2421 [facility] [place] [address]ur[address], [place], [facility]. tel:[phone] Office/outpat ient Visit, [facility], [address], [place], [place], [id number], [place] tel:[phone] SEC [facility] No Information Parag-2 7-200 8 Krishnasamy Peter. 2421 [facility] 102, [place], [facility], [place]. tel:[phone] [facility] Eye [facility], [address], [place], [place], [id number], [place] tel:[phone] [facility] No Information May-2 7-200 8 Krishnasamy Peter. [facility] 102, [place], [facility], [place]. tel:[phone] [facility], [address], [place], [place], [address], [place] tel:[phone] SEC [facility] No Information Oct-1 8-200 7 Mason Pal[address] [place], [place], [facility], [place]. tel:[phone] Office[facility]outpat ient [facility], [facility], [address], [place], [place], [address], [place] tel:[phone] SEC [facility] No Information Sep-2 0-200 7 Mason [address] [place], [place], [facility], [place]. tel:[phone] [facility], [address], [place], [place], [id number], [place] tel:[phone] SEC [facility] No Information Parag-2 1-200 7 [address] [place], [facility], [place]. tel:[phone] Referring Provider: Lorenza Silva [address], [place], [facility]. tel:[phone] [facility], [address] [place] [address] [address], [place], [place], [address], [place] tel:[phone] SEC [facility] No Information Parag-1 4-200 7 Ange Valdez [address] , [address], [place], [facility], [place]. tel:[phone] [facility], [address], [place], [place], [id number], [place] tel:[phone] [facility] No Information May-1 7-200 7 Ange Valdez [address] , [address], [place], [facility], [place]. tel:[phone] [facility], [address], [place], [place], [address], [place] tel:[phone] [facility] No Information May-1 6-200 7 Ange Valdez [address] , [address], [place], [facility], [place]. tel:[phone] [facility], [address], [place], [place], [id number], [place] tel:[phone] [facility] No Information May-1 0-200 7 Ange Britt. [address], [place], [address], [place]. tel:[phone] [facility], [address], [place], [place], [address], [place] tel:[phone] SEC [facility] No Information Apr-2 6-200 7 Mason [address] [place], [facility], [place]. tel:[phone] [facility], [address], [place], [place], [address], [place] tel:[phone] SEC [facility] No Information Dec-2 2-200 7 Mason [address] [place], [facility], [place]. tel:[phone] Office/outpat ient Visit, Est [facility], [address], [place], [place], [address], [place] tel:[phone] SEC [facility] No Information Feb-1 5-200 7 Mason [address] [place], [facility], [place]. tel:[phone] [facility], [address], [place], [place], [address], [place] tel:[phone] SEC [facility] No Information Feb-0 1-200 7 [address] [place], [facility], [place]. tel:[phone] Referring Provider: Demarco Mills, [address] [place], [address]. tel:[phone] [facility], [address], [place], [place], [address], [place] tel:[phone] SEC [facility] No Information Duong-2 5-200 7 [address] [place], [address], [place]. tel:[phone] Referring Provider: Demarco Mills, [address] [place], [address]. tel:[phone] [facility], [address] [facility] 150, [place], [place], [id number], [place] tel:[phone] SEC [facility] No Information 7 Mason [address] [place], [address], [place]. tel:[phone] Family History Family Member Type Diagnosis Age [...]
--- OUTSIDE RECORDS SUMMARY | 2025-02-23 10:21 | XMS_ITS | Clinical Summary ---
Author Organization [facility] Address [address] [place] [address] Phone Care Team Providers Care Lathe Operator Name Role Phone Faheem Brady MD Primary Care Provider [phone] Allergies Active Allergy Reactions Criticality Noted Date Comments Codeine Other (see comments) 01/03/2020 Reaction: ARRHYTHMIA, , , Peanut (Diagnostic) 06/29/2015 Sulfa Antibiotics 01/03/2020 Medications gabapentin (NEURONTIN) 300 MG capsule 1 tab/cap tid 0 7 Active insulin lispro protamine-insuli n lispro (HumaLOG MIX 75/25) (75-25) 100 UNIT/ML suspension as directed 0 7 Active tamsulosin (FLOMAX) 0.4 MG 24 hr capsule 1 tab/cap qday 0 7 Active losartan (COZAAR) 50 MG tablet TAKE 1 TABLET DAILY (SUBSTITUTE FOR LISINOPRIL) 6 7 Active aspirin (ST JAXON) 81 MG EC tablet 1 tab/cap qday 0 7 Active PROAIR HFA 108 (90 Base) MCG/ACT inhaler 0 Active finasteride (PROSCAR) 5 MG tablet 0 Active ACCU-CHEK GUIDE test strip 0 Active latanoprost (XALATAN) 0.005 % ophthalmic solution 0 Active timolol (TIMOPTIC) 0.5 % ophthalmic solution 0 Active methylPREDNISolo ne (MEDROL DOSPAK) 4 MG tablet TAKE BY MOUTH DIRECTED ON INSIDE OF PACKAGE 0 Active metoprolol tartrate (LOPRESSOR) 25 MG tablet 0 Active simvastatin (ZOCOR) 40 MG tablet 0 Active Blood Glucose Calibration (ACCU-CHEK GUIDE CONTROL) liquid 0 Active Nocdurna 55.3 MCG sublingual tablet 1 Active oxybutynin XL (DITROPAN-XL) 5 MG 24 hr tablet 1 Active desmopressin (DDAVP) 0.1 MG tablet 2 Active traMADol (ULTRAM) 50 MG tablet Take 50 mg by mouth every 6 (six) hours if needed for pain 2 Active Lancet Devices (Simple Diagnostics Lancing Dev) [facility] 2 Active Pharmacist Choice Lancets [facility] 2 Active Active Problems Problem Noted Date Diagnosed Date Diabetes mellitus without me ntion of complication, type II or unspecified type, uncontrolled 01/03/2020 Other proteinuria 03/18/2017 Type 2 diabetes mellitus wit h other diabetic kidney complication 03/18/2017 Essential (primary) hypertension 03/18/2017 Other hyperlipidemia 03/18/2017 Overview (12/27/2018): Converted unresolved ICD9, potential mismatch. Coronary atherosclerosis 09/07/2013 Immunizations Immunization Administration Dates Next Due Influenza Split High [...] Recorded Sex Assigned at Not on file Legal Sex Male 9:53 AM MST Gender Identity Not on file Sexual Orientation Not on file Last Filed Vital Signs Vital Sign Reading Time Taken Comments Blood Pressure 134/78 08/22/2022 10:15 AM [employer] Pulse - - Temperature 36.1 C (96.9 F) 08/22/2022 10:15 AM [employer] Respiratory Rate 18 08/22/2022 10:15 AM [employer] Oxygen Saturation - - Inhaled Oxygen Concentration - - Weight 89.4 kg (197 lb) 08/22/2022 10:15 AM [employer] Height 177.8 cm (5' 10 ) 08/22/2022 10:15 AM [employer] Body Mass Index 28.27 08/22/2022 10:15 AM [employer] Plan of Treatment Health Maintenance Due Date Last Done Comments Influenza Vaccine (Season Ended) 2025 Pneumococcal PPSV23/PCV13 65 + Years / High and Highest Risk Completed 04/04/2018, 11/14/2016 Insurance [facility] Care Teams Lathe Operator Relationship Specialty Start Date End Date Faheem Brady MD PCP - General Family Medicine 08/22/22
[2025-02-23 13:28] LABS: Albumin Level 3.8 g/dL (3.5-5.1); Anion Gap 6 mmol/L (4-12); Blood Urea Nitrogen 37 mg/dL (9-20); Calcium 8.8 mg/dL (8.4-10.2); Carbon Dioxide 27 mmol/L (22-30); Chloride 102 mmol/L (98-107); Estimated Glomerular Filt Rate 52; Glucose 232 mg/dL (65-110); Phosphorus 4.2 mg/dL (2.5-4.5); Potassium 4.3 mmol/L (3.4-5.0); Sodium 135 mmol/L (137-145)
[2025-02-23 13:34] LABS: Creatinine Urine 9.3 mg/dL; Total Protein Urine Random 39 mg/dL; Ur Ttl Prot Creatinine Ratio 4.19 mg/mg (0-0.20)
== END 2025-02-23 10:09 | disposition home or self-care (01) ==
PROVIDERS: PCP Family Medicine; Visit Provider Internal Medicine Nephrology
DX: I10 Essential (primary) hypertension (principal); R80.9 Proteinuria, unspecified; E11.29 Type 2 diabetes mellitus with other diabetic kidney complication
CPT/HCPCS: 36415; 80069; 82570; 84156

== ENCOUNTER 2025-03-16 10:32 | Emergency (ER) | payer MEDICARE, SELFPAY ==
[2025-03-16 10:50] VITALS: BP 125/72; PULSE 85; RESP 16; TEMP 36.1; O2SAT 97
--- NOTE | 2025-03-16 11:33 | ED_ITS ---
HPI - Skin/Abscess/Foreign Bdy General Chief complaint: Skin/Abscess/Foreign Body Stated complaint: Skin Irritation Time Seen by Provider: 03/16/25 11:20 Source: patient, RN notes reviewed and old records reviewed Mode of arrival: ambulatory Limitations: no limitations History of Present Illness HPI narrative: 70 year old male presents to express care accompanied by with concern over raised reddened scabbed lesion to the left posterior shoulder which she reports she noted last night when spouse got out of the shower. Patient reports no pain or itching to area and is unsure how long it has been there thinks could be months, denies any known insect bite or any know injury to area. Patient reports that he had lesions removed by his primary care provider of bilateral arms which were dry scaly lesion and was concern for possible evolving to skin cancer in January of this year.. Patient is diabetic, denies any fevers or any chills. MD complaint: lesion (left posterior sholulder area) Onset (ago): unknown Location: back (left upper posterior shoulder) Severity: mild Treatments prior to arrival: none Related Data Home Medications ?Medication ?Instructions ?Recorded ?Confirmed ?Last Taken ?Type aspirin 81 mg tablet,delayed 81 mg PO .QOD 09/26/23 03/03/25 01/02/25 History release latanoprost 0.005 % eye drops 1 drp EACH EYE DAILY 04/21/24 03/03/25 01/06/25 History timolol maleate 0.5 % eye drops 1 drp EACH EYE DIRECTED 04/21/24 03/03/25 01/06/25 History gabapentin 300 mg capsule 300 mg PO DAILY 11/13/24 03/03/25 01/06/25 History metformin 500 mg tablet,extended 500 mg PO DAILY 01/01/25 03/03/25 01/06/25 History release 24 hr tamsulosin 0.4 mg capsule 0.4 mg PO QAM 01/18/25 03/03/25 Unknown History insulin glargine 100 unit/mL 25 unit subcut DAILY 03/03/25 03/03/25 Unknown History subcutaneous solution (Lantus U-100 Insulin) Allergies Allergy/AdvReac Type Severity Reaction Status Date / Time peanut Allergy Unknown Swelling Verified 03/16/25 10:58 of Lip/Tongue/Throat Sulfa (Sulfonamide Allergy Unknown Skin Verified 03/16/25 10:58 Antibiotics) Reaction codeine AdvReac Unknown felt wierd Verified 03/16/25 10:58 lisinopril AdvReac Unknown cough Verified 03/16/25 10:58 Review of Systems Review of Systems: CONSTITUTIONAL: Denies fever, chills, or sweats. CARDIOVASCULAR: Denies chest pain, palpitations, or edema. RESPIRATORY: Denies cough or dyspnea. GASTROINTESTINAL: Denies abdominal pain, nausea, vomiting SKIN: Reports scaly red area with raised scab to center denies any pain or itching, no drainage noted from site, no acute redness or swelling of area Denies any known purulent drainage MUSCULOSKELETAL: Denies myalgia. NEUROLOGIC: Denies headache, numbness All systems reviewed & are unremarkable except as noted in HPI and below PMFSH Past Medical History Medical History Normal cystoscopy 01/12/2025 Urethral stricture History of UTI Diabetic retinopathy associated with controlled type 2 diabetes mellitus Multinodular goiter Type 2 diabetes mellitus with diabetic neuropathy, unspecified Prostatic hypertrophy CAD (coronary artery disease) Essential (primary) hypertension Mixed hyperlipidemia Surgical History Surgical History History of prostate surgery Family History Family History Sibling Diabetes mellitus Hypertension Family history of elevated blood lipids Father Family history of glaucoma, Onset Age: 90 Family history of elevated blood lipids, Onset Age: 90 Family history of cardiovascular disease, Onset Age: 90 Diabetes mellitus Hypertension Family history of dementia Mother Family history of malignant neoplasm of stomach, Onset Age: 78 Family history of dementia Social History Social History Smoking status: Former smoker Tobacco type: cigars Smoking end date: 10/14/89 Additional smoking assessment comments: smoked 2 cigars a day for 5 yrs Alcohol intake: current Drinks per week: 2 Alcohol use details: Rarely Substance use: never Substance use type: does not use Do You Feel Safe in your Home?: Yes Lack of Transportation: No Lack of Food: Never True Current Housing: I Have Housing Concerned About Future Housing: No Difficulty Paying Gas/Electric Bills: No Difficulty Paying for Meds: No Currently Unemployed: No Education: High School Diploma/GED Difficulty w/ Childcare or Family Care: No Living arrangements: with family Additional living arrangements comments: Gender identity (if verbalized by the patient): Male Spiritual care concerns: No Comments At time of signature, agree with nursing past medical, surgical, social and family history. There is no relevant family history pertinent to the presenting complaint Exam Narrative: GENERAL: Well-appearing, well-nourished, and in no acute distress. HEAD: Normocephalic, atraumatic. EYES: PERRLA and EOMI. ENT: Nares clear, no rhinorrhea or epistaxis. Mucous membranes moist.TM's normal with good light refles, no throat pain or redness. NECK: Supple. no lymphadenopathy CHEST: Clear to auscultation. No respiratory distress.SAO2 97% on room air HEART: Regular rate and rhythm. No murmur heard. Normal peripheral pulses. ABDOMEN: Soft, nontender, nondistended, normal active bowel sounds. EXTREMITIES: Normal range of motion. No edema. SKIN: Warm, dry. Erythema, small scaly lesion 0.5 lesion with center raised scab to left posterior shoulder no induration or fluctuation of tissue denies any tenderness to area no warm, or any ecchymosis. NEURO: No focal deficits. Alert and oriented x3. Course Course Emergency Course: Patient is aware of diagnosis, understands and agrees to treatment plan. Anticipatory guidance given. Patient agrees to follow-up as directed and is aware of reasons to seek care at the emergency department. Portions of this record may have been created with voice recognition software Level of Care: Express Care Visit Vital Signs Vital signs: Vital Signs Temperature 36.1 C L 03/16/25 10:50 Pulse Rate 85 03/16/25 10:50 Respiratory Rate 16 03/16/25 10:50 Blood Pressure 125/72 03/16/25 10:50 Pulse Oximetry 97 03/16/25 10:50 Temperature 36.1 C L 03/16/25 10:50 Pulse Rate 85 03/16/25 10:50 Respiratory Rate 16 03/16/25 10:50 Blood Pressure 125/72 03/16/25 10:50 Pulse Oximetry 97 03/16/25 10:50 Reviewed MDM - Skin/Abscess/Foreign Bdy MDM Narrative Medical decision making narrative: Does not appear at this time to be erythema multiforme, bullous, SJS, TEN; no evidence at this time to suggest RMSF, endocarditis or Lyme disease; patient looks well, nontoxic and is tolerating oral intake; no neurologic signs or symptoms; no headache, photophobia or neck pain; afebrile; appropriate for initial outpatient treatment; discussed the importance of follow-up, patient agrees. Patient does not have history of penetrating trauma, laceration, blunt trauma, recent surgery, immunosuppression, malignancy, obesity, alcoholism, corticosteroid use. Question cellulitis, necrotizing soft tissue infection, abscess. Differential Diagnosis Differential diagnosis: Likely eczema, contact dermatitis and other (keratosis, crusty scabbed lesion left shoulder area) Medical Records Attestation: I reviewed the patient's medical records. Critical Care Time Critical Care Time Critical Care Time: No Discharge Plan Discharge Clinical Impression: Skin lesion of back Patient Disposition: Home Condition: Stable Instructions: Antibiotic Form, Dermatitis (ED) Additional Instructions: cleanse area to left upper shoulder with liquid Dial soap apply mupirocin oi ntment watch for any increasing infection--redness, swelling, drainage Tylenol or ibuprofen follow up with PCP in 7-10 days for a wound check recheck if develop fever, chills, increasing symptom Go to the ER if your symptoms become worse of if ANY new symptoms develop Keflex take as prescribed for 7 days follow-up with PCP in 1 week for further for evaluation possible referral to Dermatology If your symptoms persist, change or worsen significantly before you can contact your personal physician then please, without delay, go to the emergency department for further evaluation. Follow-up with PCP in 7-10 days or sooner if needed Patient Language: [place] Prescriptions: New cephalexin 500 mg capsule 500 mg PO Q12H Qty: 14 0RF mupirocin [Centany] 2 % ointment 1 applic topical BID Qty: 22 0RF Rx Instructions: apply to lesion twice daily No Action (DME) lancets 31 gauge misc See Rx Instructions .Route Qty: 100 3RF Rx Instructions: Use to check blood sugar 2 times daily timolol maleate 0.5 % drops 1 drp EACH EYE DIRECTED latanoprost 0.005 % drops 1 drp EACH EYE DAILY (DME) Dexcom G7 Chief Procurement Officer Misc See Rx Instructions .Route Qty: 1 0RF Rx Instructions: As directed (DME) Ultima Test Strips Strip See Rx Instructions .Route Qty: 100 3RF Rx Instructions: Use to check blood sugar 4 times daily (DME) pen needle, diabetic [1st Tier Unifine Pentips Plus] 31 gauge x 5/16 needle See Rx Instructions .Route Qty: 120 3RF Rx Instructions: Use to inject insulin up to 4 times daily aspirin 81 mg tablet,delayed release (DR/EC) 81 mg PO .QOD Patient Comments: HOLD 7 days prior Gvoke HypoPen 2-Pack 1 mg/0.2 mL auto-injector 1 mg subcut ONCE Qty: 0.4 4RF Rx Instructions: may repeat once after 15 minutes if no response glucose [Dex4 Glucose] 4 gram tablet,chewable 16 g PO Q15M PRN (Reason: hypoglycemia) Qty: 60 1RF Rx Instructions: until symptoms of low blood sugar are controlled tamsulosin 0.4 mg capsule 0.4 mg PO QAM ergocalciferol (vitamin D2) 1,250 mcg (50,000 unit) capsule 1,250 mcg PO WEEKLY 98 Days Qty: 14 0RF dapagliflozin propanediol [Farxiga] 10 mg tablet 10 mg PO QAM 90 Days Qty: 90 4RF Ozempic 1 mg/dose (4 mg/3 mL) pen injector 1 mg subcut WEEKLY 90 Days Qty: 9 4RF insulin glargine [Lantus U-100 Insulin] 100 unit/mL solution 25 unit subcut DAILY metformin 500 mg tablet extended release 24 hr 500 mg PO DAILY gabapentin 300 mg capsule 300 mg PO DAILY Patient Comments: HS (DME) Dexcom G7 Sensor Device See Rx Instructions .Route Qty: 1 4RF Rx Instructions: As directed hydralazine 25 mg tablet 25 mg PO DAILY Qty: 90 1RF Patient Comments: HS simvastatin 40 mg tablet 40 mg PO DAILY Qty: 100 1RF Patient Comments: HS losartan 100 mg tablet 50 mg PO DAILY Qty: 90 1RF metoprolol tartrate 25 mg tablet 25 mg PO BID Qty: 200 1RF Follow-up/Referrals: PHYSICIAN,OIL TANKER CAPTAIN [Primary Care Provider] - Time of Disposition: 11:49 Quality [place] Coma Scale Eyes: Open Verbal: Oriented and Alert Motor: Follows Commands Kourtney Coma Total Score: 15
== END 2025-03-16 11:53 | disposition home or self-care (01) ==
PROVIDERS: Emergency Provider Registered Nurse
DX: L98.9 Disorder of the skin and subcutaneous tissue, unspecified (principal); E11.9 Type 2 diabetes mellitus without complications; I25.10 Atherosclerotic heart disease of native coronary artery without angina pectoris; I10 Essential (primary) hypertension; E78.2 Mixed hyperlipidemia; Z87.891 Personal history of nicotine dependence
CPT/HCPCS: 99213; G0463

== ENCOUNTER 2025-06-18 12:52 | Outpatient (CLI) | payer MEDICARE, SELFPAY ==
--- OUTSIDE RECORDS SUMMARY | 2010-04-04 10:45 | XMS_ITS | Continuity of Care Document ---
Author Organization [employer] Address [address] [place] [address] Dr Osborn [address] [place] [phone] Phone Care Team Providers Care Window Draper Name Role Phone Peter Felix Unavailable Unavailable Procedures Procedure Date Office/outpatient Visit, Est Fundus Photography W/ Report Visual Field Examination(s) Eye Exam Established Pt Office/outpatient Visit, Est Office/outpatient Visit, Est Fundus Photography W/ Report Visual Field Examination(s) Office/outpatient Visit, Est Office/outpatient Visit, Est Corneal Pachymetry Office/outpatient Visit, Est Eye Exam Established Pt Remove Foreign Body From Eye Office/outpatient Visit, Est Ophthalmoscopy, Subsequent Ophthalmoscopy, Subsequent Eye Exam Established Pt Ophthalmoscopy, Subsequent Ophthalmoscopy, Subsequent Injection Eye Drug Kenalog/Triamcinolone Acetonide Inj Post-op Follow-up Visit Post-op Follow-up Visit After Cataract Laser Surgery Eye Exam Established Pt Eye Exam Established Pt Ophthalmoscopy, Subsequent Ophthalmoscopy, Subsequent Eye Exam Established Pt Ophthalmoscopy, Subsequent Ophthalmoscopy, Subsequent Office/outpatient Visit, Est Ophthalmoscopy, Subsequent Ophthalmoscopy, Subsequent Eye Exam & Treatment Ophthalmoscopy, Subsequent Fluorescein Angiography Fundus Photography W/ Report Injection Eye Drug Kenalog/Triamcinolone Acetonide Inj Ophthalmoscopy, Subsequent Eye Exam & Treatment Ophthalmoscopy, Subsequent Ophthalmoscopy, Subsequent Advance Directives Directive Yes / No Effective Date File Name No Information Encounters Encounter Description Practice Location Reason(s) For Visit Diagnoses Date Provider Providers Copied on Encounter Office/outpat ient Visit, Est [facility], [address] [place] [address] [address], [place], [place], [id number], tel:[phone] [facility] [place] No Information 0 Krishcaron Peter. [address] [place] [address], [address], [place]. tel:[phone] Referring Provider: Peter silva, [address] [place], [place] [address]ate [place] [address], [place], [place], [facility]. tel:[phone] [facility], [address] [place] [address] [address], [place], [place], [id number], tel:[phone] [facility] [place] No Information 0 Clintonish[place]amy Peter. [facility] [address], [place], [address], [place]. tel:[phone] Referring Provider: Peter silva, [address] [place] [address], [place], [place], [facility]. tel:[phone] [facility], [address] [place] [address] [address], [place], [place], [id number], tel:[phone] [facility] [place] No Information 0 Krishnasamy Peter. [address], [facility], [place]. tel:[phone] Office/outpat ient Visit, [facility], [address] [place] [address] [address], [place], [place], [id number], tel:[phone] [facility] [place] No Information Mar-0 2-200 9 Krishnasamy Peter. [address] [place], [place] [address]ate [address], [facility], [place]. tel:[phone] Office/outpat ient Visit, [facility], [address] [place] [address] [address], [place], [place], [id number], tel:[phone] [facility] No Information 2 0-200 9 Krishnasamy Peter. [address] [place] [address], [facility], [place]. tel:[phone] Referring Provider: Peter silva, [address] [place], [place] [address] [address], [facility]. tel:[phone] [facility], [address] [place] [address] [address], [place], [place], [id number], tel:[phone] [facility] No Information 2-200 9 Krishnasamy Peter. [address] [place] [address], [facility], [place]. tel:[phone] Referring Provider: Peter silva, [address] [place], [place] [address] [address], [facility]. tel:[phone] Office/outpat ient Visit, [facility], [address] [place] [address] [address], [place], [place], [id number], tel:[phone] [facility] [place] No Information 1-200 8 Krishnasamy Peter. [address] [place], [place] [address] [address], [address], [place]. tel:[phone] [facility]pat ient [facility], [facility], [address], [place], [place], [id number], [place] tel:[phone] [facility] No Information Andres-2 2-200 8 Krishnasamy Peter. [address] [facility] 102, [place], [facility], [place]. tel:[phone] Referring Provider: Peter silva, 24[address] [facility] [place] [address], [place], [facility]. tel:[phone] Office/outpat ient Visit, [facility], [address] [place] [address], [place], [place], [id number], [place] tel:[phone] [facility] No Information Parag-2 7-200 8 Krishnasamy Peter. [address] [facility] 102, [place], [facility], [place]. tel:[phone] [facility], [address] [place] [address], [place], [place], [id number], [place] tel:[phone] [facility] No Information May-2 7-200 8 Krishnasamy Peter. [facility] 102, [place], [facility], [place]. tel:[phone] [facility], [address] [place] [address], [place], [place], [id number], [place] tel:[phone] [facility] No Information Oct-1 8-200 7 Mason Pal. [address] [place], [place], [facility], [place]. tel:[phone] Office[facility]outpat ient Visit, [facility], [address] [place] [address], [place], [place], [address], [place] tel:[phone] [facility] No Information Sep-2 0-200 7 Mason Pal[address] [place], [facility], [place]. tel:[phone] [facility], [address] [place] [address], [place], [place], [address], [place] tel:[phone] [facility] No Information Parag-2 1-200 7 Mason Pal[address] [place], [facility], [place]. tel:[phone] Referring Provider: Lorenza Silva [address], [place], [facility]. tel:[phone] [facility], [address] [place] [address] [address], [place], [place], [id number], [place] tel:[phone] SEC [facility] No Information Parag-1 4-200 7 Ange Valdez [address] , [address], [place], [facility], [place]. tel:[phone] [facility], [address] [place] [address], [place], [place], [id number], [place] tel:[phone] [facility] No Information May-1 7-200 7 Ange Valdez [address] , [address], [place], [facility], [place]. tel:[phone] [facility], [address] [place] [address], [place], [place], [id number], [place] tel:[phone] [facility] No Information May-1 6-200 7 Ange Valdez [address] , [address], [place], [facility], [place]. tel:[phone] [facility], [address] [place] [address], [place], [place], [id number], [place] tel:[phone] [facility] No Information May-1 0-200 7 Ange Britt. [address], [place], [address], [place]. tel:[phone] [facility], [address] [place] [address], [place], [place], [id number], [place] tel:[phone] [facility] No Information Apr-2 6-200 7 Mason Pal[address], [facility], [place]. tel:[phone] [facility], [address] [place] [address], [place], [place], [address], [place] tel:[phone] [facility] No Information Dec-2 2-200 7 Mason Pal[address] [place], [facility], [place]. tel:[phone] Office/outpat ient Visit, Est [facility], [address] [place] [address], [place], [place], [address], [place] tel:[phone] [facility] No Information Feb-1 5-200 7 Mason Pal. [address] [place], [facility], [place]. tel:[phone] [facility], [address] [place] [address], [place], [place], [address], [place] tel:[phone] [facility] No Information Feb-0 1-200 7 Mason Pal[address] [place], [facility], [place]. tel:[phone] Referring Provider: Demarco Mills, [address] [place], [address]. tel:[phone] [facility], [address] [place] [address] [address], [place], [place], [address], [place] tel:[phone] [facility] No Information Duong-2 5-200 7 Mason Pal[address] [place], [address], [place]. tel:[phone] Referring Provider: Demarco Mills, [address] [place], [address]. tel:[phone] [facility], [address] [facility] 150, [place], [place], [id number], [place] tel:[phone] [facility] No Information 7 Mason Pal. [address] [place], [address], [place]. tel:[phone] Family History Family Member Type Diagnosis Age At Onset No Information Payers Payer name Insurance type Covered republican ID Authoriza tion(s) No Information Social History Type Description Quantity Date Captured Comments Sex Male Smoking Status No Information Chief Complaint And Reason For Visit No Information Reason For Referral Reason For Referral No Information History Of Present Illness Encounter Date Complaint History Of Prese nt Illness No Information Functional Status Date Functional Assessmen t No Information Instructions Date Instruction Additional Infor mation No Information Assessments Type Assessment Date No Information Patient Care Teams Name Effective Dates (start - stop) Status Members No Information
[2025-06-18 17:48] LABS: Hematocrit 51.8 % (42.0-52.0); Hemoglobin 16.7 g/dL (14.0-18.0); Mean Corpuscular HGB Conc 32.2 g/dl (32-36); Mean Corpuscular Hemoglobin 30.6 pg (26-34); Mean Corpuscular Volume 94.9 fl (80-100); Platelet Count Result 143 k/mm3 (150-375); Red Blood Count 5.46 M/mm3 (4.6-6.20); White Blood Count 5.8 K/mm3 (4.5-10.0)
[2025-06-18 17:56] LABS: Hemoglobin A1C 7.1 % (<5.7)
[2025-06-18 18:00] LABS: Alanine Aminotransferase 26 U/L (6-50); Albumin Level 3.9 g/dL (3.5-5.1); Alkaline Phosphatase 129 U/L (38-126); Anion Gap 3 mmol/L (4-12); Aspartate Amino Transferase 33 U/L (17-59); Bilirubin,Total 0.4 mg/dL (0.2-1.3); Blood Urea Nitrogen 28 mg/dL (9-20); Calcium 8.8 mg/dL (8.4-10.2); Carbon Dioxide 29 mmol/L (22-30); Chloride 103 mmol/L (98-107); Cholesterol 130 mg/dL (0-200); Estimated Glomerular Filt Rate 58; Glucose 125 mg/dL (65-110); HDL Direct 47 mg/dL; Potassium 4.8 mmol/L (3.4-5.0); Sodium 135 mmol/L (137-145); Total Protein 6.9 g/dL (6.3-8.2); Triglycerides 137 mg/dL (<150)
[2025-06-18 18:00] LABS: Total Protein Urine Random 49 mg/dL; Ur Ttl Prot Creatinine Ratio 1.57 mg/mg (0-0.20)
[2025-06-18 18:09] LABS: Parathyroid Intact 77.5 pg/mL (14.5-75.2)
[2025-06-18 18:11] LABS: Free T4 Free Thyroxine 0.94 ng/dL (0.78-2.19)
[2025-06-18 18:28] LABS: MALB Creatinine Ratio 671.0 mg/g (0-30)
[2025-06-18 18:31] LABS: Prostate Specific Antigen 2.0 ng/mL (< OR = 4.0); Thyroid Stimulating Hormone < 0.015 uIU/mL (0.465-4.680)
== END 2025-06-18 12:53 | disposition home or self-care (01) ==
PROVIDERS: Internal Medicine Nephrology; PCP Family Medicine; Visit Provider Nurse Practitioner
DX: E78.2 Mixed hyperlipidemia (principal); E11.40 Type 2 diabetes mellitus with diabetic neuropathy, unspecified; E05.90 Thyrotoxicosis, unspecified without thyrotoxic crisis or storm; Z12.5 Encounter for screening for malignant neoplasm of prostate; R80.8 Other proteinuria; E11.29 Type 2 diabetes mellitus with other diabetic kidney complication; N25.81 Secondary hyperparathyroidism of renal origin; E55.9 Vitamin D deficiency, unspecified; I12.9 Hypertensive chronic kidney disease with stage 1 through stage 4 chronic kidney disease, or unspecified chronic kidney disease; N18.31 Chronic kidney disease, stage 3a
CPT/HCPCS: 36415; 80053; 80061; 82043; 82306; 82570; 83036; 83970; 84100; 84153; 84156; 84439; 84443; 85027; G0103

== ENCOUNTER 2025-07-18 18:16 | Emergency (ER) | payer MEDICARE, SELFPAY ==
--- NOTE | ~2025-07-18 | CT_ITS ---
EXAMINATION: CT elbow RT wo con DATE: 07/18/2025 21:01 INDICATION: Proximal right ulna fracture. TECHNIQUE: Computed tomography (CT) of the right elbow was performed without intravenous contrast. Automated exposure control and iterative reconstruction technique were employed. The dose-length product was 506.12 mGy-cm. COMPARISON: Radiographs 07/18/2025 FINDINGS: There is a comminuted fracture of olecranon of proximal ulna. The main distal fracture fragment demonstrates near-anatomic alignment. There is no arthritis. There are enthesophytes at the medial and lateral humeral epicondyles. There is a small elbow joint effusion. IMPRESSION: 1. Comminuted fracture of olecranon of proximal ulna. Reviewed, dictated and finalized at location E.
--- NOTE | ~2025-07-18 | XR_ITS ---
EXAMINATION: XR elbow RT min 3V, 07/18/2025 18:55 CDT HISTORY: fall, pain COMPARISON: No comparisons available. Findings: There is a comminuted fracture the proximal ulna with intra-articular extension. No dislocation. No significant degenerative changes. Soft tissue swelling. Impression: Fracture detailed above Reviewed, dictated and finalized at location P. Impression: Fracture detailed above
--- NOTE | ~2025-07-18 | XR_ITS ---
EXAMINATION: XR shoulder RT min 2V, 07/18/2025 18:55 CDT HISTORY: fall, pain COMPARISON: No comparisons available. Findings: Nondisplaced fracture of the humeral neck. No significant degenerative changes. Soft tissue swelling. Impression: Fracture detailed above Reviewed, dictated and finalized at location P. Impression: Fracture detailed above
--- NOTE | ~2025-07-18 | CT_ITS ---
EXAMINATION: CT cervical spine wo con COMPARISON: None HISTORY: fall, [place] TECHNIQUE: Axial images were obtained through the spine without IV contrast. Coronal, sagittal reconstruction images were obtained from the axial views. CT scan performed using dose optimization techniques including the following automated exposure control; adjustment of mA and/or kV; use of iterative reconstruction technique. Automatic exposure control was used to reduce radiation dose. Permanent radiation dose record is archived to PACS. FINDINGS: Grade 1 anterolisthesis of C3 on C4 and C4 on C5, no fracture. Severe loss of disc height at C4-5 C5-6 and C6-7 with moderate to severe canal and foraminal stenosis, outpatient MRI is recommended. Soft tissues Partially imaged large right thyroid nodule 2.5 x 2 cm, outpatient ultrasound is recommended. Impression: No acute abnormality. Reviewed, dictated and finalized at location P. Impression: No acute abnormality.
--- NOTE | ~2025-07-18 | CT_ITS ---
EXAMINATION: CT brain wo kelsi, 07/18/2025 19:35 CDT HISTORY: fall, [place] COMPARISON: No comparisons available. Technique: Axial images obtained of the brain without contrast. One or more of the following dose reduction techniques were used: automated exposure control, adjustment of the mA and/or kV according to patient size, use of iterative reconstruction technique. Findings: No acute infarct or parenchymal hemorrhage. No abnormal mass or mass effect. No midline shift. No extra-axial fluid collections. No hydrocephalus. Mastoid air cells unremarkable. Sinuses and orbits unremarkable. No acute fracture. No significant facial or scalp soft tissue swelling evident. No radiopaque foreign body is seen. Impression: 1.No acute intracranial abnormality. Reviewed, dictated and finalized at location P. Impression: 1.No acute intracranial abnormality.
--- NOTE | ~2025-07-18 | CT_ITS ---
EXAMINATION: CT shoulder RT wo con DATE: 07/18/2025 21:01 INDICATION: Proximal right humerus fracture. TECHNIQUE: Computed tomography (CT) of the right shoulder was performed without intravenous contrast. Automated exposure control and iterative reconstruction technique were employed. The dose-length product was 340.05 mGy-cm. COMPARISON: Right shoulder radiographs 07/18/2025 FINDINGS: There is a 4 mm nodule in right lung upper lobe, likely benign. A calcified right lung nodule and calcified right hilar lymph nodes are consistent with old granulomatous disease. There is a comminuted fracture of proximal humerus including fracture components of the surgical neck and greater tuberosity. The main distal fracture fragment demonstrates impaction and 17 mm lateral displacement. There is moderate osteoarthritis of acromioclavicular joint and humeral joint. IMPRESSION: 1. Comminuted fracture of proximal humerus. 2. Polyarticular osteoarthritis. Reviewed, dictated and finalized at location E.
[2025-07-18 18:49] VITALS: BP 163/78; PULSE 63; RESP 13; TEMP 36.4; O2SAT 100
[2025-07-18] MEDS: HYDROmorphone HCL INJ (*CRX) 1 MG/ML SYR 0.5 MG IV PUSH ×2 (19:36→20:25)
--- NOTE | 2025-07-18 19:44 | ED.UPPEXIN ---
HPI - Extremity Injury (Upper) General Chief Complaint: Extremity Injury, Upper Stated Complaint: fall, right elbow and shoulder pain Time Seen by Provider: 07/18/25 18:29 Source: patient Mode of arrival: ambulatory Limitations: no limitations History of Present Illness HPI narrative: Patient is a 70 y/o male who presents to the ED with c/o a fall. 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 Attempted to catch himself with his right arm. He did hit his head but denied LOC. He is not on any anticoagulation. He complains of pain to his right shoulder and right elbow. Denies numbness. Denies any other areas of pain. Sustained abrasions to R elbow. Tetanus UTD. Related Data Home Medications ?Medication ?Instructions ?Recorded ?Confirmed ?Last Taken ?Type aspirin 81 mg tablet,delayed 81 mg PO .QOD 09/26/23 07/06/25 01/02/25 History release latanoprost 0.005 % eye drops 1 drp EACH EYE DAILY 04/21/24 07/06/25 01/06/25 History timolol maleate 0.5 % eye drops 1 drp EACH EYE DIRECTED 04/21/24 07/06/25 01/06/25 History tamsulosin 0.4 mg capsule 0.4 mg PO QAM 01/18/25 07/06/25 Unknown History insulin degludec 100 unit/mL (3 30 unit subcut DAILY 05/11/25 07/06/25 Unknown History mL) subcutaneous pen (Tresiba FlexTouch U-100 insulin) melatonin 5 mg tablet 5 mg PO QHS 05/11/25 07/06/25 Unknown History Allergies Allergy/AdvReac Type Severity Reaction Status Date / Time peanut Allergy Unknown Swelling Verified 07/18/25 18:51 of Lip/Tongue/Throat Sulfa (Sulfonamide Allergy Unknown Skin Verified 07/18/25 18:51 Antibiotics) Reaction codeine AdvReac Unknown felt wierd Verified 07/18/25 18:51 lisinopril AdvReac Unknown cough Verified 07/18/25 18:51 Review of Systems Review of Systems: All systems reviewed & are unremarkable except as noted in HPI. All systems reviewed & are unremarkable except as noted in HPI and below PMFSH Past Medical History Medical History Normal cystoscopy 01/12/2025 Urethral stricture History of UTI Diabetic retinopathy associated with controlled type 2 diabetes mellitus Multinodular goiter Type 2 diabetes mellitus with diabetic neuropathy, unspecified Prostatic hypertrophy CAD (coronary artery disease) Essential (primary) hypertension Mixed hyperlipidemia Surgical History Surgical History History of prostate surgery Family History Family History Sibling Diabetes mellitus Hypertension Family history of elevated blood lipids Father Family history of glaucoma, Onset Age: 90 Family history of elevated blood lipids, Onset Age: 90 Family history of cardiovascular disease, Onset Age: 90 Diabetes mellitus Hypertension Family history of dementia Mother Family history of malignant neoplasm of stomach, Onset Age: 78 Family history of dementia Social History Social History Smoking status: Former smoker Tobacco type: cigars Smoking end date: 10/14/89 Additional smoking assessment comments: smoked 2 cigars a day for 5 yrs Alcohol intake: current Drinks per week: 2 Alcohol use details: Rarely Substance use: never Substance use type: does not use Do You Feel Safe in your Home?: Yes Lack of Transportation: No Lack of Food: Never True Current Housing: I Have Housing Concerned About Future Housing: No Difficulty Paying Gas/Electric Bills: No Difficulty Paying for Meds: No Currently Unemployed: No Education: High School Diploma/GED Difficulty w/ Childcare or Family Care: No Living arrangements: with family Additional living arrangements comments: Gender identity (if verbalized by the patient): Male Spiritual care concerns: No Exam Narrative: GENERAL: Well appearing, well-nourished, non-toxic, in no acute distress. HEAD: Normocephalic, atraumatic. RESPIRATORY: Airway patent, respirations nonlabored. CARDIOVASCULAR: Regular rate and rhythm without murmurs, rubs, or gallops. Radial pulses strong and intact MUSCULOSKELETAL: No gross deformities. Limited range of motion of right shoulder and right elbow due to pain. Tenderness to palpation over right anterior proximal humerus. No significant swelling noted. Moderate swelling throughout right olecranon region with focal tenderness to palpation. Several small superficial abrasions over olecranon without deeper wounds or lacerations. No active bleeding. Normal sensation throughout right upper extremity. SKIN: Warm, dry, normal color. NEURO: A&O X3. Speech clear. Cranial nerves II-XII grossly intact. Steady gait. No ataxic movements. PSYCHIATRIC: Appropriate mood and affect. Normal interaction. Course Vital Signs Vital signs: Vital Signs Temperature 97.5 F L 07/18/25 18:49 Pulse Rate 63 07/18/25 18:49 Respiratory Rate 13 07/18/25 18:49 Blood Pressure 163/78 H 07/18/25 18:49 Pulse Oximetry 100 07/18/25 18:49 Oxygen Delivery Room Air 07/18/25 18:49 Temperature 97.5 F L 07/18/25 18:49 Pulse Rate 69 07/18/25 20:30 Respiratory Rate 18 07/18/25 20:30 Blood Pressure 146/75 H 07/18/25 20:30 Pulse Oximetry 97 07/18/25 20:30 Oxygen Delivery Room Air 07/18/25 18:49 MDM - Extremity Injury (Upper) MDM Narrative Medical decision making narrative: Patient neurovascularly intact. Vital signs are stable. In no acute distress. CT brain and cervical spine without acute traumatic findings. X-ray of right shoulder with nondisplaced proximal humeral neck fracture X-ray of right shoulder with proximal ulnar fracture, intra-articular extension. No dislocation. Discussed case with Dr. Krishna, orthopedics, recommended CT of right shoulder and right elbow. Recommended posterior long-arm splint with sling. Follow-up in office. Patient is in agreement this plan. Will provide pain control for home. Discussed rice therapy, strict return precautions. Medical Records Attestation: I reviewed the patient's medical records. Imaging Data Attestation: I personally reviewed and interpreted this imaging study as follows: Radiologist's impression: ITS Impressions Elbow X-Ray 07/18/25 19:23 Impression: Fracture detailed above Shoulder X-Ray 07/18/25 19:24 Impression: Fracture detailed above Head CT 07/18/25 19:51 Impression: 1.No acute intracranial abnormality. Cervical Spine CT 07/18/25 19:53 Impression: No acute abnormality. Discharge Plan Discharge Clinical Impression: Fracture of neck of right humerus Qualifiers: Encounter type: initial encounter Fracture type: closed Qualified Code(s): S42.211A - Unspecified displaced fracture of surgical neck of right humerus, initial encounter for closed fracture Fracture of proximal end of right ulna Qualifiers: Encounter type: initial encounter Fracture type: closed Fracture morphology: unspecified fracture morphology Qualified Code(s): S52.001A - Unspecified fracture of upper end of right ulna, initial encounter for closed fracture Closed head injury Qualifiers: Encounter type: initial encounter Qualified Code(s): S09.90XA - Unspecified injury of head, initial encounter Patient Disposition: Home Condition: Stable Instructions: Antibiotic Form, Elbow Fracture (ED), How to Use a Sling (ED), Splint Care (ED), Proximal Humerus Fracture (ED) Additional Instructions: Call orthopedic office tomorrow to make appointment. Wear splint until seen by Orthopedics. Wear sling at all times. You may remove this when showering or sleeping, but avoid use of arm. Recommend frequent icing to shoulder/elbow. Recommend Tylenol/ibuprofen as needed for pain. Oxycodone as needed for more severe pain. Return to the ED if you experience worsening pain, recurrent fall or injury, numbness, severe dizziness, passing out, or any other symptoms of concern. Patient Language: Citizen Of [place] Prescriptions: New oxycodone 5 mg tablet 5 mg PO Q6H PRN (Reason: pain) Qty: 20 0RF No Action mupirocin [Centany] 2 % ointment 1 applic topical BID Qty: 22 0RF Rx Instructions: apply to lesion twice daily (DME) lancets 31 gauge misc See Rx Instructions .Route Qty: 100 3RF Rx Instructions: Use to check blood sugar 2 times daily timolol maleate 0.5 % drops 1 drp EACH EYE DIRECTED latanoprost 0.005 % drops 1 drp EACH EYE DAILY (DME) Dexcom G7 Financial Officer Misc See Rx Instructions .Route Qty: 1 0RF Rx Instructions: As directed (DME) Ultima Test Strips Strip See Rx Instructions .Route Qty: 100 3RF Rx Instructions: Use to check blood sugar 4 times daily (DME) pen needle, diabetic [1st Tier Unifine Pentips Plus] 31 gauge x 5/16 needle See Rx Instructions .Route Qty: 120 3RF Rx Instructions: Use to inject insulin up to 4 times daily aspirin 81 mg tablet,delayed release (DR/EC) 81 mg PO .QOD Patient Comments: HOLD 7 days prior Gvoke HypoPen 2-Pack 1 mg/0.2 mL auto-injector 1 mg subcut ONCE Qty: 0.4 4RF Rx Instructions: may repeat once after 15 minutes if no response glucose [Dex4 Glucose] 4 gram tablet,chewable 16 g PO Q15M PRN (Reason: hypoglycemia) Qty: 60 1RF Rx Instructions: until symptoms of low blood sugar are controlled tamsulosin 0.4 mg capsule 0.4 mg PO QAM dapagliflozin propanediol [Farxiga] 10 mg tablet 10 mg PO QAM 90 Days Qty: 90 4RF Ozempic 1 mg/dose (4 mg/3 mL) pen injector 1 mg subcut WEEKLY 90 Days Qty: 9 4RF insulin degludec [Tresiba FlexTouch U-100] 100 unit/mL (3 mL) insulin pen 30 unit subcut DAILY melatonin 5 mg tablet 5 mg PO QHS insulin lispro [Humalog KwikPen Insulin] 100 unit/mL insulin pen 5 unit subcut TIDWMEAL Qty: 15 2RF Rx Instructions: Take 5 units before meals + Sliding Scale 150-200: 1 unit 201-250: 2 units 251-300: 3 units 301-350: 4 units 351-400: 5 units >401: 6 units simvastatin 20 mg tablet 20 mg PO DAILY Qty: 90 1RF (DME) Dexcom G7 Sensor Device See Rx Instructions .Route Qty: 1 4RF Rx Instructions: As directed hydralazine 25 mg tablet 25 mg PO DAILY Qty: 90 1RF Patient Comments: HS losartan 100 mg tablet 50 mg PO DAILY Qty: 90 1RF gabapentin 300 mg capsule 300 mg PO TID Qty: 270 1RF metformin 500 mg tablet extended release 24 hr 500 mg PO DAILY Qty: 90 1RF metoprolol tartrate 25 mg tablet 25 mg PO BID Qty: 200 1RF Follow-up/Referrals: Gregorio Krishna MD [Physician, Orthopedics] Referral Note: ORTHOPEDICS Lorraine Mi DO [Primary Care Provider, [facility]] Time of Disposition: 20:48
[2025-07-18 19:50] VITALS: BP 154/75; PULSE 65; RESP 8; O2SAT 97
[2025-07-18 20:00] VITALS: BP 143/71; PULSE 63; RESP 20; O2SAT 98
[2025-07-18 20:15] VITALS: BP 140/75; PULSE 67; RESP 20; O2SAT 99
[2025-07-18] MEDS: KETOROLAC 15 MG/ML VIAL (*BKC) IV PUSH (20:26)
[2025-07-18 20:30] VITALS: BP 146/75; PULSE 69; RESP 18; O2SAT 97
[2025-07-18 21:46] VITALS: BP 124/72; PULSE 72; RESP 18; O2SAT 97
== END 2025-07-18 21:47 | disposition home or self-care (01) ==
PROVIDERS: Emergency Provider Physician Assistant; PCP Family Medicine
DX: S42.211A Unspecified displaced fracture of surgical neck of right humerus, initial encounter for closed fracture (principal); S52.091A Other fracture of upper end of right ulna, initial encounter for closed fracture; S09.90XA Unspecified injury of head, initial encounter; I25.10 Atherosclerotic heart disease of native coronary artery without angina pectoris; I10 Essential (primary) hypertension; E11.319 Type 2 diabetes mellitus with unspecified diabetic retinopathy without macular edema; E11.40 Type 2 diabetes mellitus with diabetic neuropathy, unspecified; E78.2 Mixed hyperlipidemia; N40.0 Benign prostatic hyperplasia without lower urinary tract symptoms; Z87.440 Personal history of urinary (tract) infections; Z87.891 Personal history of nicotine dependence; Z79.4 Long term (current) use of insulin; Z79.82 Long term (current) use of aspirin; W17.89XA Other fall from one level to another, initial encounter
CPT/HCPCS: 29105; 70450; 72125; 73030; 73080; 73200; 96374; 96375; 96376; 99284; A4565; J1171; J1885

== ENCOUNTER 2025-08-31 08:04 | Outpatient (CLI) | payer MEDICARE, SELFPAY ==
[2025-08-31 13:16] LABS: Alanine Aminotransferase 18 U/L (6-50); Albumin Level 3.9 g/dL (3.5-5.1); Alkaline Phosphatase 133 U/L (38-126); Anion Gap 8 mmol/L (4-12); Aspartate Amino Transferase 29 U/L (17-59); Bilirubin,Total 0.6 mg/dL (0.2-1.3); Blood Urea Nitrogen 33 mg/dL (9-20); Calcium 9.2 mg/dL (8.4-10.2); Carbon Dioxide 25 mmol/L (22-30); Chloride 102 mmol/L (98-107); Estimated Glomerular Filt Rate 56; Glucose 110 mg/dL (65-110); Potassium 4.2 mmol/L (3.4-5.0); Sodium 135 mmol/L (137-145); Total Protein 6.8 g/dL (6.3-8.2)
[2025-08-31 13:46] LABS: Thyroid Stimulating Hormone 0.018 uIU/mL (0.465-4.680)
[2025-08-31 15:25] LABS: Free T3 4.11 pg/mL (2.45-5.93)
[2025-08-31 15:28] LABS: Free T4 Free Thyroxine 1.03 ng/dL (0.78-2.19)
== END 2025-08-31 08:05 | disposition home or self-care (01) ==
PROVIDERS: PCP Family Medicine; Visit Provider Nurse Practitioner Family
DX: E78.5 Hyperlipidemia, unspecified (principal); R79.89 Other specified abnormal findings of blood chemistry
CPT/HCPCS: 36415; 80053; 83520; 84439; 84443; 84445; 84481